=== PATIENT | female | born 1950 | race Caucasian/White ===

== ENCOUNTER 2016-07-15 09:55 | Inpatient (IN) ==
[2016-07-15] MEDS ORDERED: Ipratropium/Albuterol Neb 3 ML IH ONE (09:58)
[2016-07-15] MEDS ORDERED: methylPREDNISolone 125 MG/2 ML VIAL IVP ONE (09:58)
--- NOTE | 2016-07-15 10:08 | Emergency Department Note ---
Disposition Clinical Impression: COPD (chronic obstructive pulmonary disease) Disposition: Admitted As Inpatient Condition: Critical Referrals: Reanna Pagan MD [Primary Care Provider] - Forms: ED Satisfaction Letter SOB HPI - General Chief Complaint: ED Shortness of Breath/Dyspnea Stated Complaint: WHITNEY Source: patient, EMS Mode of arrival: EMS Nursing Notes Reviewed: Yes Vital Signs Reviewed: Yes - History of Present Illness 65-year-old female with history of COPD presents with what she believes is a COPD exacerbation. She states that she as 3-4 days of worsening shortness of breath, cough, and wheezing that is exactly the same as prior COPD exacerabations. Her nebulizer treatments help, but do not remit her symptoms. Her home oxygen of 4 L also helps, but does not remember her symptoms. She denies any change in sputum or fever. No headache, stiff neck confusion, chest pain GI or symptoms, rashes or edema. Pt Subjective Complaint: shortness of breath - Related Data Home Medications Medication Instructions Recorded Confirmed Guaifenesin [Mucinex] 600 mg PO BID 02/04/16 03/10/16 Roflumilast [Daliresp] 500 mcg PO DAILY 02/04/16 03/10/16 TraZODone 25 mg PO HS 02/04/16 03/10/16 Alendronate Sodium [Fosamax] 70 mg PO TH 02/05/16 03/10/16 Calcium/Magnesium/Vit D3 [Calcium 1 each PO BID 02/05/16 03/10/16 500 mg Tablet] Oxygen 4 l NS AD 02/05/16 03/10/16 Previous Rx's Medication Instructions Recorded Acetaminophen [Tylenol] 650 mg PO Q6HR PRN #0 tablet 03/14/16 Albuterol Neb [Proventil Neb] 2.5 mg IH Q2H PRN #0 inhsol 03/14/16 Atorvastatin [Lipitor] 20 mg PO DAILY tablet 03/14/16 Budesonide/Formoterol 80/4.5 2 puff IH BIDR inhaler 03/14/16 [Symbicort 80/4.5] Buspirone HCl [Buspar] 15 mg PO BID tablet 03/14/16 Cyanocobalamin (B-12) [Vitamin B12] 1,000 mcg PO DAILY tablet 03/14/16 Doxycycline 100 mg PO BID 7 Days 03/14/16 FLUoxetine HCl [Prozac] 20 mg PO DAILY udc 03/14/16 Famotidine [Pepcid] 20 mg PO BID tablet 03/14/16 Ferrous Sulfate 325 mg PO DAILY tablet 03/14/16 Heparin 5,000 unit SQ Q12HR vial 03/14/16 Ipratropium/Albuterol Neb [Duoneb] 3 ml IH [id number] inhsol 03/14/16 MethylPREDNISolone [Medrol] 2 mg PO BIDWM #1 pack 03/14/16 Montelukast [Singulair] 10 mg PO HS tablet 03/14/16 Saline Nasal [place] [[place] Nasal 2 spray NS Q2H PRN #0 bottle 03/14/16 [place]] Theophylline Anhydrous [Phong-24] 300 mg PO DAILY cap.er.24h 03/14/16 Allergies Allergy/AdvReac Type Severity Reaction Status Date / Time No Known Allergies Allergy Verified 02/04/16 19:19 All systems ED: reviewed and negative except as stated. Past Medical History - Past Medical History Attestation: Yes The following information was validated with the patient. Source: patient Medical history: Reports: COPD, other Surgical history: Reports: appendectomy, other (lung surgeries X2, heart cath) Psychiatric history: Reports: no psych history - Social History Smoking Status: Former smoker Smokeless Tobacco Status: No Alcohol use: Reports: none Drug use: Reports: none Physical Exam - General Limitations: no limitations General appearance: alert, in no apparent distress - Head Head exam: atraumatic, normocephalic - Eye Eye exam: Present: normal appearance, PERRL, EOMI - ENT ENT exam: normal exam, normal oropharynx, mucous membranes moist - Neck Neck exam: Present: normal inspection, full ROM, trachea midline - Chest Chest inspection: Present: normal inspection, symmetric chest wall rise - Respiratory Respiratory exam: Present: wheezes, other (poor air movement.) - Cardiovascular Cardiovascular exam: Present: regular rate, normal rhythm, normal heart sounds - Abdominal Exam Abdominal exam: Present: soft, Non-Tender. Absent: tenderness, distention, guarding, rebound, rigidity - Extremities Exam Extremities exam: Present: normal inspection, full ROM. Absent: tenderness, pedal edema - Back Exam Back exam: Present: normal inspection, full ROM. Absent: tenderness - Neurological Exam Neurological exam: Present: alert, oriented X3, CN II-XII intact - Psychiatric Psychiatric exam: Present: normal affect, normal mood - Skin Skin exam: Present: warm, dry, intact, normal color Course - Reevaluation(s) Reevaluation #1: Patient is still moving air very poorly. She is in the middle of her nebulizer treatment. Family at the bedside notes that the patient is DNR/DNI. Time: 10:59 Reevaluation #2: CO2 comes back critical high of 121. This is acute on chronic with the patient' s bicarbonate is greater than 50. Patient is agreeable to BiPAP after significant coaxing by her family. She is adamant about not being intubated or having CPR performed however though. She understands without intubation she may during this hospital stay. She states that she has been intubated before and does not want to be on a ventilator again. Patient will not take BiPAP without Ativan however. I understand that this may affect her respiratory drive, but without Ativan and BiPAP the patient will likely . Time: 12:10 Reevaluation #3: Accepted by Lana. He is aware of patient's DNR/DNI status. He is aware the patient is quite ill at this time and may decompensate. Time: 12:23 Vital Signs O2 Sat by Pulse Oximetry 100 07/15/16 09:58 Temperature 98.4 F 07/15/16 10:03 Pulse Rate 102 07/15/16 10:03 Respiratory Rate 22 07/15/16 10:32 Blood Pressure 157/68 07/15/16 10:03 O2 Sat by Pulse Oximetry 98 07/15/16 10:32 Oxygen Delivery Oxygen Delivery Nasal Cannula Shortness of Breath/Dyspnea - Lab Data Lab results reviewed: Yes I reviewed the patient's lab results. Result diagrams: 07/15/16 11:14 07/15/16 11:14 Lab Results 07/15/16 07/15/16 07/15/16 Range/Units 11:14 11:14 11:14 WBC 8.1 (4.3-11.1) K/mcL RBC 3.56 L (3.82-4.97) M/mcL Hgb 10.2 L (11.5-15.4) g/dL Hct 36.0 (35.3-44.9) % MCV 101.1 H (83.0-100.0) fL MCH 28.7 (28.0-33.3) pg MCHC 28.3 L (31.6-35.5) g/dL RDW 11.9 (11.5-14.5) % Plt Count 233 (140-400) K/mcL MPV 9.1 L (9.4-12.4) fL Immature Gran % 0.2 (0-4) % Seg Neutrophils % 72.7 % Lymphocytes % 15.1 % Monocytes % 8.2 % Eosinophils % 3.3 % Basophils % 0.5 % Neutrophils # 5.9 (1.6-8.9) K/mcL Lymphocytes # 1.2 (0.6-4.6) K/mcL Monocytes # 0.7 (0.0-1.3) K/mcL Eosinophils # 0.3 (0.0-0.6) K/mcL Basophils # 0.0 (0.0-0.2) K/mcL VBG pH (7.32-7.42) pH Units VBG pCO2 (41-51) mmHg VBG pO2 (25-40) mmHg VBG HCO3 (21-27) mEq/L Sodium 141 (136-145) mEq/L Potassium 4.3 (3.5-4.5) mEq/L Chloride 85 L (98-109) mEq/L Carbon Dioxide 49 H* (19-29) mEq/L BUN 14 (7-20) mg/dL Creatinine 0.65 (0.57-1.11) mg/dL Est GFR ( Amer) > 60 (> 60) Est GFR (Non-Af Amer) > 60 (> 60) BUN/Creatinine Ratio 22 (6-26) Glucose 161 H (70-99) mg/dL Calculated Osmolality 296 (280-300) Calcium 10.3 (8.6-10.8) mg/dL Troponin I 0.02 (0-0.03) ng/mL B-Natriuretic Peptide (0-100) pg/mL 07/15/16 07/15/16 Range/Units 11:14 11:14 WBC (4.3-11.1) K/mcL RBC (3.82-4.97) M/mcL Hgb (11.5-15.4) g/dL Hct (35.3-44.9) % MCV (83.0-100.0) fL MCH (28.0-33.3) pg MCHC (31.6-35.5) g/dL RDW (11.5-14.5) % Plt Count (140-400) K/mcL MPV (9.4-12.4) fL Immature Gran % (0-4) % Seg Neutrophils % % Lymphocytes % % Monocytes % % Eosinophils % % Basophils % % Neutrophils # (1.6-8.9) K/mcL Lymphocytes # (0.6-4.6) K/mcL Monocytes # (0.0-1.3) K/mcL Eosinophils # (0.0-0.6) K/mcL Basophils # (0.0-0.2) K/mcL VBG pH 7.28 L (7.32-7.42) pH Units VBG pCO2 121 H (41-51) mmHg VBG pO2 47 H (25-40) mmHg VBG HCO3 56.9 H (21-27) mEq/L Sodium (136-145) mEq/L Potassium (3.5-4.5) mEq/L Chloride (98-109) mEq/L Carbon Dioxide (19-29) mEq/L BUN (7-20) mg/dL Creatinine (0.57-1.11) mg/dL Est GFR ( Amer) (> 60) Est GFR (Non-Af Amer) (> 60) BUN/Creatinine Ratio (6-26) Glucose (70-99) mg/dL Calculated Osmolality (280-300) Calcium (8.6-10.8) mg/dL Troponin I (0-0.03) ng/mL B-Natriuretic Peptide 79 (0-100) pg/mL - Radiology Data Radiology results reviewed: Yes I reviewed the patient's radiology results. - EKG Data EKG attestation: Yes I reviewed and interpreted this EKG. EKG results narrative: Sinus tachycardia at 104 with normal axis and intervals. No ST elevation or depression. There is nonspecific septal repolarization abnormality. No change from 03/10/2016.
[2016-07-15 11:25] LABS: Basophils % 0.5 %; Eosinophils # 0.3 K/mcL (0.0-0.6); Eosinophils % 3.3 %; Hemoglobin 10.2 g/dL (11.5-15.4); Immature Granulocytes % 0.2 % (0-4); Lymphocytes # 1.2 K/mcL (0.6-4.6); Lymphocytes % 15.1 %; Mean Corpuscular HGB Conc 28.3 g/dL (31.6-35.5); Mean Corpuscular Hemoglobin 28.7 pg (28.0-33.3); Mean Corpuscular Volume 101.1 fL (83.0-100.0); Mean Platelet Volume 9.1 fL (9.4-12.4); Monocytes # 0.7 K/mcL (0.0-1.3); Monocytes % 8.2 %; Neutrophils # 5.9 K/mcL (1.6-8.9); Platelet Count 233 K/mcL (140-400); Red Blood Count 3.56 M/mcL (3.82-4.97); Red Cell Distribution Width 11.9 % (11.5-14.5); Segmented Neutrophils % 72.7 %
[2016-07-15 11:27] LABS: VBG HCO3 56.9 mEq/L (21-27); VBG PH 7.28 pH Units (7.32-7.42)
[2016-07-15 11:37] LABS: BUN/Creatinine Ratio 22 (6-26); Blood Urea Nitrogen 14 mg/dL (7-20); Calcium 10.3 mg/dL (8.6-10.8); Chloride 85 mEq/L (98-109); Glucose 161 mg/dL (70-99); Osmolality,Calculated 296 (280-300); Potassium 4.3 mEq/L (3.5-4.5); Sodium 141 mEq/L (136-145); eGFR For African Americans > 60 (> 60); eGFR For Non-African Americans > 60 (> 60)
[2016-07-15 11:42] LABS: Carbon Dioxide 49 mEq/L (19-29)
[2016-07-15] MEDS ORDERED: *HR* LORazepam 2 MG/ML VIAL IVP ONE (12:10)
--- NOTE | 2016-07-15 12:13 | Emergency Department Note ---
START Narrative - START START: I examined this patient and my medical decision-making was reviewed with the MAJOR ASSEMBLER/PA/Advanced Practice Nurse/Resident Physician. I agree with the documented findings, disposition and treatment plan as described except to the extent set forth below. ED attending note: Patient seen with emergency medicine resident Dr. Rinaldi. Please see a copy of his note for details of the H&P, evaluation, management and disposition of this patient. We independently had [id number] contact with the patient Briefly: Patient is 65-year-old endstage COPD patient comes in with shortness of breath. Respiratory wheezing. Has had multiple intubations and ICU admissions in the past. Declines intubation and does not want BiPAP at this time. Understanding that she is very ill and may during this hospitalization patient is accepting of that and family at bedside is supportive. Awaiting hospitalist call back. Patient is hypercarbic and hypoxic. Patient is not critical at this point. To be admitted.
[2016-07-15] MEDS ORDERED: Acetaminophen 325 MG TABLET PO PRN (14:26)
[2016-07-15] MEDS ORDERED: *HR* Morphine 2 MG/ML SYRINGE IVP PRN (14:26)
[2016-07-15] MEDS ORDERED: Naloxone 0.4 MG/ML INJ IVP PRN (14:26)
[2016-07-15] MEDS ORDERED: Nitroglycerin 0.4 MG TAB.SUBL SL PRN (14:31)
--- NOTE | 2016-07-15 14:38 | Internal Med History&Physical ---
Date of Encounter: 07/15/16 Time of Encounter: 14:36 Assessment and Plan (1) Acute exacerbation of chronic obstructive pulmonary disease (COPD) Current visit: No Status: Acute Acute on chronic hypoxic and hypercapnic respiratory failure secondary to acute COPD exacerbation likely secondary to acute bronchitis viral versus bacterial Continue Solu-Medrol, Rocephin, DuoNeb's BiPAP as needed Palliative care consult Mild hydration She is a DNR CC arrest DNI (2) Acute on chronic respiratory failure with hypoxia and hypercapnia Current visit: No Status: Acute (3) Anxiety about health Current visit: No Status: Acute Ativan IV as needed (4) DNR (do not resuscitate) discussion Current visit: No Status: Acute (5) Depression Current visit: No Status: Acute Continue SSRIs Qualifiers: Depression Type: major depressive disorder Major depression recurrence: recurrent Major depression episode severity: unspecified Qualified Code(s): F33.9 - Major depressive disorder, recurrent, unspecified (6) Chronic anemia Current visit: No Status: Chronic Protonix IV for GI prophylaxis and Lovenox for DVT prophylaxis. The patient will be admitted as inpatient, she is expected to stay more than 2 midnights. DNR CC arrest DNI. High risk due to respiratory failure Time spent on this admission 40 minutes Internal Medicine - H&P: HPI Chief complaint: Shortness of breath Admitted From: Emergency Dept History of present illness: Ms. Gaines is a 65 year old female with a past medical history of end-stage COPD using 4 L of oxygen continuously at home who has been intubated in the past. The patient according to the family was complaining of shortness of breath for the past 4 days with worse dry cough and wheezing. She used her nebulizers without any improvement. Upon admission to the emergency room she was in severe respiratory distress, she has refused the BiPAP in prior admissions but she accepted to have it this time only if given along with Ativan. The patient is completely obtunded right now if venous pH was 7.28 with a PCO2 of 121 and a PO2 of 47. Family denies any sick contacts. Chest x-ray shows cardiomegaly with emphysematous changes with pleural thickening and no active disease. Her heart rate is 102. No fevers. Patient is not able to provide any history at the moment. Past Med Surg Social Fam HX - Past Medical History Medical history: CHF (Diastolic CHF last echocardiogram showed 60% ejection fraction with mild diastolic dysfunction), COPD (End-stage COPD with chronic respiratory failure using 4 L of oxygen at home, prior intubations), GERD, hyperlipidemia, hypertension, other (Chronic anemia/iron deficiency anemia, severe protein calorie malnutrition) Psychiatric history: anxiety - Past Surgical History Surgical History: appendectomy, other (lung surgeries X2, heart cath) - Social History Smoking Status: Former smoker Smokeless Tobacco Status: No Alcohol use: none Drug use: none - Family History Mother Living Status: Hx Family Cancer: Yes Father Living Status: - Additional Family History Additional family history: Hypertension Internal Medicine - H&P: Meds Guaifenesin [Mucinex] 600 mg PO BID 02/04/16 [History] Roflumilast [Daliresp] 500 mcg PO DAILY 02/04/16 [History] TraZODone 25 mg PO HS 02/04/16 [History] Alendronate Sodium [Fosamax] 70 mg PO TH 02/05/16 [History] Calcium/Magnesium/Vit D3 [Calcium 500 mg Tablet] 1 each PO BID 02/05/16 [History ] Oxygen 4 l NS AD 02/05/16 [History] Acetaminophen [Tylenol] 650 mg PO Q6HR PRN #0 tablet 03/14/16 [Rx] Albuterol Neb [Proventil Neb] 2.5 mg IH Q2H PRN #0 inhsol 03/14/16 [Rx] Atorvastatin [Lipitor] 20 mg PO DAILY tablet 03/14/16 [Rx] Budesonide/Formoterol 80/4.5 [Symbicort 80/4.5] 2 puff IH BIDR inhaler [Rx] Buspirone HCl [Buspar] 15 mg PO BID tablet 03/14/16 [Rx] Cyanocobalamin (B-12) [Vitamin B12] 1,000 mcg PO DAILY tablet 03/14/16 [Rx] Doxycycline 100 mg PO BID 7 Days 03/14/16 [Rx] FLUoxetine HCl [Prozac] 20 mg PO DAILY udc 03/14/16 [Rx] Famotidine [Pepcid] 20 mg PO BID tablet 03/14/16 [Rx] Ferrous Sulfate 325 mg PO DAILY tablet 03/14/16 [Rx] Heparin 5,000 unit SQ Q12HR vial 03/14/16 [Rx] Ipratropium/Albuterol Neb [Duoneb] 3 ml IH [id number] inhsol 03/14/16 [Rx] MethylPREDNISolone [Medrol] 2 mg PO BIDWM #1 pack 03/14/16 [Rx] Montelukast [Singulair] 10 mg PO HS tablet 03/14/16 [Rx] Saline Nasal [place] [[place] Nasal [place]] 2 spray NS Q2H PRN #0 bottle 03/14/16 [Rx ] Theophylline Anhydrous [Phong-24] 300 mg PO DAILY cap.er.24h 03/14/16 [Rx] Allergies No Known Allergies Allergy (Verified 02/04/16 19:19) All Systems PM: A 10-system review of systems was performed and is negative for pertinent findings except as documented above in the HPI. Review of systems: Unable to completely review of systems - Constitutional Vitals: Temp Pulse Resp BP Pulse Ox 98.4 F 102 22 157/68 98 07/15/16 10:03 07/15/16 10:03 07/15/16 12:49 07/15/16 10:03 07/15/16 12:49 General appearance: Present: A&O X 0 (Obtunded, BiPAP mask in place), underweight - Head Head exam: Present: atraumatic, normocephalic - Eye Eye exam: Present: PERRL, conjuntiva pink, sclera anicteric Pupils: Absent: PERRL - Neck Neck exam general surgery: Present: supple, trachea midline. Absent: lymphadenopathy - Respiratory Respiratory exam: Present: decreased breath sounds (Very diminished breath sounds almost not perceived), CTAB. Absent: accessory muscle use, rales, rhonchi, wheezes - Cardiovascular Cardiovascular exam: Present: RRR, +S1, +S2. Absent: diastolic murmur, gallop, rubs, systolic murmur - GI/Abdominal GI/Abdominal exam: Present: normal bowel sounds, soft, no peritoneal signs. Absent: distended, tenderness - Extremities Exam Extremities exam: Present: warm, radial pulses palpable and symetrical. Absent : calf tenderness, cyanotic, pedal edema - Neurological Exam Neurological exam: Present: CN II-XII intact, no focal deficits. Absent: oriented X3, pronater drift, facial droop, speech deficit - Skin Skin exam: Present: dry, intact Internal Med - H&P Results - Labs CBC & Chem 7: 07/15/16 11:14 07/15/16 11:14
[2016-07-15] MEDS: Ipratropium/Albuterol Neb 3 ML IH SCH ×2 (15:21→22:44)
[2016-07-15] MEDS: Pantoprazole 40 MG VIAL IVP SCH (15:56)
[2016-07-15] MEDS: 0.9 % Sodium Chloride 1,000 ML IVC SCH (15:56)
[2016-07-15] MEDS: methylPREDNISolone 125 MG/2 ML VIAL IV SCH (15:57)
[2016-07-15 16:53] LABS: Adenovirus Not Detected (Not Detect); Bordetella Pertussis Not Detected (Not Detect); Chlamydophila pneumoniae Not Detected (Not Detect); Coronavirus 229E Not Detected (Not Detect); Coronavirus HKU1 Not Detected (Not Detect); Coronavirus NL63 Not Detected (Not Detect); Coronavirus OC43 Not Detected (Not Detect); Human Metapneumovirus Not Detected (Not Detect); Human Rhinovirus/Enterovirus Not Detected (Not Detect); Influenza A Subtype 2009 H1 Not Detected (Not Detect); Influenza A Untypeable Not Detected (Not Detect); Influenza B Not Detected (Not Detect); Mycoplasma pneumoniae Not Detected (Not Detect); Parainfluenza Virus 1 Not Detected (Not Detect); Parainfluenza Virus 2 Not Detected (Not Detect); Parainfluenza Virus 3 Not Detected (Not Detect); Parainfluenza Virus 4 Not Detected (Not Detect); Respiratory Syncytial Virus Not Detected (Not Detect)
[2016-07-16] MEDS: methylPREDNISolone 125 MG/2 ML VIAL IV SCH ×2 (01:32→09:28)
[2016-07-16] MEDS ORDERED: Water for inj. (sterile) 10 ML IV ONE (02:39)
[2016-07-16] MEDS: *HR* LORazepam 2 MG/ML VIAL IVP PRN ×3 (02:41→23:54)
[2016-07-16 04:24] LABS: Hematocrit 34.1 % (35.3-44.9); Immature Granulocytes % 0.6 % (0-4); Lymphocytes # 0.4 K/mcL (0.6-4.6); Lymphocytes % 8.2 %; Mean Corpuscular HGB Conc 29.3 g/dL (31.6-35.5); Mean Corpuscular Hemoglobin 28.7 pg (28.0-33.3); Mean Platelet Volume 9.6 fL (9.4-12.4); Monocytes # 0.3 K/mcL (0.0-1.3); Monocytes % 5.9 %; Neutrophils # 4.4 K/mcL (1.6-8.9); Platelet Count 241 K/mcL (140-400); Red Blood Count 3.48 M/mcL (3.82-4.97); Red Cell Distribution Width 11.9 % (11.5-14.5); Segmented Neutrophils % 85.3 %
[2016-07-16 04:55] LABS: BUN/Creatinine Ratio 20 (6-26); Blood Urea Nitrogen 12 mg/dL (7-20); Calcium 9.3 mg/dL (8.6-10.8); Chloride 87 mEq/L (98-109); Glucose 116 mg/dL (70-99); Osmolality,Calculated 295 (280-300); Potassium 4.9 mEq/L (3.5-4.5); Sodium 142 mEq/L (136-145); eGFR For African Americans > 60 (> 60); eGFR For Non-African Americans > 60 (> 60)
[2016-07-16 05:00] LABS: Carbon Dioxide 47 mEq/L (19-29)
[2016-07-16] MEDS: Ipratropium/Albuterol Neb 3 ML IH SCH ×4 (05:03→21:47)
[2016-07-16] MEDS: *HR* Enoxaparin 40 MG/0.4 ML SYRINGE SQ SCH (06:34)
[2016-07-16] MEDS: Pantoprazole 40 MG VIAL IVP SCH (09:28)
[2016-07-16] MEDS: 0.9 % Sodium Chloride 1,000 ML IVC SCH (09:28)
[2016-07-16] MEDS: (Roflumilast [Daliresp] 500 MCG) PO SCH (09:29)
--- NOTE | 2016-07-16 13:47 | Internal Med Progress Note ---
Date of Encounter: 07/16/16 Time of Encounter: 11:15 - Subjective Interval history: Ms. Gaines is a 65 year old female with a past medical history of end-stage COPD using 4 L of oxygen continuously at home admitted with altered mental status. and hypoxia and hypercarbia. She was placed on BiPAP ovenight. She is now more alert. I discussed with her family. She will need BiPAP at night and when sleeping during the day. Overnight BiPAP qualification required. O/E: In mild respiratory distress, pursing of lips HEENT: Not pale, anicteric, afebrile, acyanotic, Chest: Diminished air entry bilaterally, prolonged expiratory phase. Heart: RRR, HS1/2, no murmur Abdomen: obese, soft, non-tender, no masses. HELMET HAT BRIM CUTTER: AAO x 2, no gross focal neurological deficits Skin: No active skin lesion Extremities: No pedal edema, normal pedal pulses, no calf tenderness. IMP Altered mental status Acute on chronic respiratory failure with hypoxia and severe hypercarbia COPD exacerbation Advanced COPD, oxygen-dependent PLAN Continue nocturnal and rest BiPAP Overnight BiPAP qualification Reduce dose of Solumedrol to 40mg Q1H Await palliative care evaluation Continue other care. I discussed at length with the patient's sons. She apparently has CPAP at home. I try trade this for BiPAP before discharge. The entire amily smokes cigarette, the patient lives with her sons. - Constitutional Vitals: Temp Pulse Resp BP Pulse Ox 97.8 F 92 17 132/94 98 07/16/16 11:49 07/16/16 11:49 07/16/16 11:49 07/16/16 11:49 07/16/16 11:49 General appearance: Present: A&O X 0 (Obtunded, BiPAP mask in place), underweight Internal Medicine: Result - Labs CBC & Chem 7: 07/16/16 03:03 07/16/16 03:03 Labs: Short CBC 07/16/16 Range/Units 03:03 WBC 5.1 (4.3-11.1) K/mcL Hgb 10.0 L (11.5-15.4) g/dL Hct 34.1 L (35.3-44.9) % Plt Count 241 (140-400) K/mcL Neutrophils # 4.4 (1.6-8.9) K/mcL BMP 07/16/16 03:03 Sodium 142 Potassium 4.9 H Chloride 87 L Carbon Dioxide 47 H* BUN 12 Creatinine 0.59 Glucose 116 H Calcium 9.3 Consult Discharge Plan - Plan Referrals: Reanna Pagan MD [Primary Care Provider] -
[2016-07-16] MEDS: FLUoxetine HCl Oral Soln 20 MG/5 ML UDC PO SCH (14:01)
--- NOTE | 2016-07-16 14:02 | Palliative - Consult Note ---
Date of Encounter: 07/16/16 Time of Encounter: 13:30 - Assessment and Plan (1) Dyspnea Current Visit: No Status: Chronic Assessment and plan: Patient with end-stage COPD. Continue duonebs, steroids, low dose IV morphine. Bipap PRN. Qualifiers: Dyspnea type: dyspnea on exertion Qualified Code(s): R06.09 - Other forms of dyspnea (2) Anxiety about health Current Visit: No Status: Acute Assessment and plan: Patient with IV ativan if needed. Currently denies anxiety with family at bedside. (3) Goals of care, counseling/discussion Current Visit: Yes Status: Acute Assessment and plan: Patient is alert and oriented. Sons Ventura and Lopez at bedside. These 2 sons live with the patient. Lopez provides the majority of care his contact number is [phone]. I discussed the patients end-stage COPD and reason for admission. The patient and family understand that her lung disease is severe. They currently get Passport care with nurse visiting the patient 4 x week. I discussed that the severity of her COPD would qualify her for hospice care. They verbalized understanding that and that they weren't ready to enroll in in yet. I discussed that her admissions would continue and they verbalized understanding that she still wanted to be treated with medications as needed for episodic events. I ask they speak with other family members as well. The patient reports that she failed a bipap certification back in January and the family desires to see if she can be tested for it again. I will f/u with Dr. Johnson. The patient and family are interested in drafting advanced directives. The patient would like to list daughter Belinda # or (c) as the primary agent. I will attempt to make contact with her to set-up a meeting to draft. Palliative-CN HPI - Data of Consult Patient: new to practice Consult date: 07/16/16 Requesting Physician: Bobby Arzate Primary Care Provider: Reanna Pagan - Consult Narrative Palliative Care/Comfort Measures: Palliative care Reason for consult: Goals of Care discussion History of present illness: Ms. Gaines is a 65 year old female admitted with exacerbation of COPD with severe respiratory distress. She was given ativan to calm her nerves and facilitate her wearing the bipap and this resulted her becoming obtunded last evening. The patient wears 4 L NC at home continuously. Upon this consult her 2 sons Ventura and Lopez are present in the room. She is alert and oriented and able to hold conversation. Her sons report that she was in usual state of health but began developing a cough over the past week. The patient resides in her home with these 2 sons. They are very involved in her care and appear to understand the severity of her COPD. This palliative care consult if for goals of care planning. CC: Sana Chun Past Med Surg Social Fam HX - Past Medical History Source: patient, old records reviewed, obtained from family Medical history: CHF, COPD, GERD, hyperlipidemia, hypertension, other Psychiatric history: anxiety - Past Surgical History Surgical History: appendectomy, other - Social History Smoking Status: Former smoker Smokeless Tobacco Status: No Alcohol use: none Drug use: none Occupational status: unemployed Current living situation: Home, With Family (sons Ventura and Lopez) Activity Level: Uses cane/walker Recent Out of Country Travel Within the Last 8 Weeks: No Exposure or Possible Exposure to Illness During Travel: No - Family History Mother Living Status: Hx Family Cancer: Yes (brain) Father Living Status: Medications and Allergies Guaifenesin [Mucinex] 600 mg PO BID 02/04/16 [History] Roflumilast [Daliresp] 500 mcg PO DAILY 02/04/16 [History] TraZODone 25 mg PO HS 02/04/16 [History] Alendronate Sodium [Fosamax] 70 mg PO TH 02/05/16 [History] Calcium/Magnesium/Vit D3 [Calcium 500 mg Tablet] 1 tab PO BID 02/05/16 [History] Oxygen 4 l NS AD 02/05/16 [History] Albuterol Neb [Proventil Neb] 2.5 mg IH Q2H PRN #0 inhsol 03/14/16 [Rx] Atorvastatin [Lipitor] 20 mg PO DAILY tablet 03/14/16 [Rx] Buspirone HCl [Buspar] 15 mg PO BID tablet 03/14/16 [Rx] FLUoxetine HCl [Prozac] 20 mg PO DAILY udc 03/14/16 [Rx] Ferrous Sulfate 325 mg PO DAILY tablet 03/14/16 [Rx] Montelukast [Singulair] 10 mg PO HS tablet 03/14/16 [Rx] Theophylline Anhydrous [Phong-24] 300 mg PO DAILY cap.er.24h 03/14/16 [Rx] Albuterol Sulfate [Proair Hfa] 2 puff IH Q4-6H PRN 07/15/16 [History] Aspirin [Lo-Dose Aspirin EC] 81 mg PO DAILY 07/15/16 [History] Cyclobenzaprine [Flexeril] 10 mg PO HS 07/15/16 [History] Fluticasone/Salmeterol [Advair 250-50 Diskus] 1 puff IH BID 07/15/16 [History] Loratadine [Allergy Relief] 10 mg PO DAILY 07/15/16 [History] Omeprazole [PriLOSEC] 20 mg PO DAILY 07/15/16 [History] Allergies No Known Allergies Allergy (Verified 02/04/16 19:19) All systems: reviewed and no additional remarkable complaints except as stated ( cough, SOB, WHITNEY. weakness) - Constitutional Constitutional ROS PAL: fatigue - EENT Eyes: requires corrective lenses - Respiratory Respiratory: dyspnea on exertion - Genitourinary Palliative ROS female: urinary frequency - Musculoskeletal Musculoskeletal ROS IM: muscle weakness - Psychiatric Psychiatric general PM: anxiety Palliative Care-Exam - Constitutional Vitals: Temp Pulse Resp BP Pulse Ox 97.8 F 92 17 132/94 98 07/16/16 11:49 07/16/16 11:49 07/16/16 11:49 07/16/16 11:49 07/16/16 11:49 General appearance: Present: cooperative, no acute distress - Head Head Exam: Present: atraumatic, normal inspection - Eye Eye exam: Present: PERRL Pupils: Present: PERRL - ENT ENT exam: Present: mucous membranes moist - Neck Neck exam: Present: full ROM - Respiratory Respiratory exam: Present: decreased breath sounds - Expanded Respiratory Exam Location: decreased breath sounds: Left, Right, Upper, Lower - Expanded Cardiovascular Exam Peripheral pulses: 1+: Femoral (L) PM, Femoral (R) PM, Posterior Tibialis (L), Posterior Tibialis (R), 2+: Carotid (L) PM, Carotid (R) PM, Radial (L), Radial ( R), Dorsalis Pedis (L) PM, Dorsalis Pedis (R) PM - GI/Abdominal Exam GI/Abdominal exam: Present: normal bowel sounds, soft - Rectal Rectal exam: Present: deferred - Additional comments: per attends - Extremities Exam Extremities exam: Present: full ROM - Expanded Upper Extremities Exam Upper Arm exam: Present: full ROM Forearm wrist exam: Present: full ROM - Expanded Lower Extremities Exam Upper Leg exam: Present: full ROM Lower Leg exam: Present: full ROM - Neurological Exam Neurological exam: Present: alert, CN II-XII intact, oriented X3 - Psychiatric Psychiatric exam: Present: normal affect, normal mood - Skin Skin exam: Present: pallor, warm Internal Medicine - CN: Reslt - Labs CBC & Chem 7: 07/16/16 03:03 07/16/16 03:03 Labs: Short CBC 07/16/16 Range/Units 03:03 WBC 5.1 (4.3-11.1) K/mcL Hgb 10.0 L (11.5-15.4) g/dL Hct 34.1 L (35.3-44.9) % Plt Count 241 (140-400) K/mcL Neutrophils # 4.4 (1.6-8.9) K/mcL BMP 07/16/16 03:03 Sodium 142 Potassium 4.9 H Chloride 87 L Carbon Dioxide 47 H* BUN 12 Creatinine 0.59 Glucose 116 H Calcium 9.3 Consult Discharge Plan - Plan Referrals: Reanna Pagan MD [Primary Care Provider] - Palliative Quality Palliative Quality: Screen for Code Status: Yes, Screen for Goals of Care: Yes, Screen for Pain: Yes, If Pain Regimen Started, Initiate Bowel Regimen: Yes, Screen for Nausea/Vomitting: Yes
[2016-07-16] MEDS: MethylPREDNISolone 40 MG/ML VIAL IVP SCH ×2 (15:25→23:55)
[2016-07-16 16:40] LABS: ABG Base Excess 23.5 mEq/L (-2.0 to 3.0); ABG HCO3 54.5 mEQ/L (21-27); ABG Oxygen Saturation 99 % (95-98); ABG PH 7.28 pH Units (7.32-7.45); ABG PO2 163 mmHg (85-104); ABG TCO2 58.1 mEq/L (20-26)
[2016-07-16 16:43] LABS: ABG PCO2 116 mmHg (35-45); Blood Gas FiO2 40 %
--- NOTE | 2016-07-16 19:54 | Electrocardiograph Report ---
[facility] Test Date: 2016-07-15 Pat Name: Dior Gaines Department: 105 Room: 3B53 Gender: F Healthcare Translator: EMELIA : 1950 Requested By: Yusef Rinaldi Order Number: [id number] Reading MD: Jared Bae DO Measurements Intervals [place] Rate: 104 P: 79 ME: 129 QRS: 19 QRSD: 90 T: 60 QT: 322 QTc: 382 Interpretive Statements SINUS TACHYCARDIA POSSIBLE LEFT VENTRICULAR HYPERTROPHY Electronically Signed On 07-16-16 19:54:03 EST by Jared Bae DO
[2016-07-17] MEDS ORDERED: Temazepam 15 MG CAPSULE PO ONE (01:31)
[2016-07-17] MEDS: 0.9 % Sodium Chloride 1,000 ML IVC SCH ×2 (03:05→23:03)
[2016-07-17] MEDS: Ipratropium/Albuterol Neb 3 ML IH SCH ×4 (03:28→21:41)
[2016-07-17 05:50] LABS: ABG HCO3 50.2 mEQ/L (21-27); ABG Oxygen Saturation 98 % (95-98); ABG PH 7.35 pH Units (7.32-7.45); ABG PO2 103 mmHg (85-104); Blood Gas FiO2 36 %; Blood Gas Liter Flow 4 L/MIN
[2016-07-17 05:52] LABS: ABG PCO2 91 mmHg (35-45)
[2016-07-17] MEDS: *HR* Enoxaparin 40 MG/0.4 ML SYRINGE SQ SCH (06:01)
[2016-07-17 08:16] LABS: Basophils % 0.1 %; Eosinophils % 0.1 %; Hematocrit 30.4 % (35.3-44.9); Hemoglobin 8.9 g/dL (11.5-15.4); Immature Granulocytes % 0.9 % (0-4); Lymphocytes # 0.7 K/mcL (0.6-4.6); Lymphocytes % 7.7 %; Mean Corpuscular HGB Conc 29.3 g/dL (31.6-35.5); Mean Corpuscular Hemoglobin 28.6 pg (28.0-33.3); Mean Corpuscular Volume 97.7 fL (83.0-100.0); Mean Platelet Volume 9.3 fL (9.4-12.4); Monocytes # 0.7 K/mcL (0.0-1.3); Monocytes % 7.6 %; Neutrophils # 7.9 K/mcL (1.6-8.9); Platelet Count 251 K/mcL (140-400); Red Blood Count 3.11 M/mcL (3.82-4.97); Segmented Neutrophils % 83.6 %
[2016-07-17 08:28] LABS: BUN/Creatinine Ratio 25 (6-26); Blood Urea Nitrogen 14 mg/dL (7-20); Calcium 9.1 mg/dL (8.6-10.8); Chloride 94 mEq/L (98-109); Glucose 101 mg/dL (70-99); Osmolality,Calculated 297 (280-300); Potassium 4.1 mEq/L (3.5-4.5); Sodium 143 mEq/L (136-145); eGFR For African Americans > 60 (> 60); eGFR For Non-African Americans > 60 (> 60)
[2016-07-17 08:33] LABS: Carbon Dioxide 42 mEq/L (19-29)
[2016-07-17] MEDS: (Roflumilast [Daliresp] 500 MCG) PO SCH (09:32)
[2016-07-17] MEDS: FLUoxetine HCl Oral Soln 20 MG/5 ML UDC PO SCH (09:35)
[2016-07-17] MEDS: MethylPREDNISolone 40 MG/ML VIAL IVP SCH ×3 (10:41→23:39)
[2016-07-17] MEDS: Pantoprazole 40 MG VIAL IVP SCH (10:42)
[2016-07-17] MEDS: *HR* LORazepam 2 MG/ML VIAL IVP PRN ×3 (10:43→23:03)
--- NOTE | 2016-07-17 11:03 | Palliative Progress Note ---
Date of Encounter: 07/17/16 Time of Encounter: 11:01 - Assessment and plan (1) Dyspnea Current Visit: Yes Status: Chronic Assessment and plan: Supportive care, position for comfort, supplemental O2, overnight pulse ox study for BiPAP qualification last night. Qualifiers: Dyspnea type: dyspnea on exertion Qualified Code(s): R06.09 - Other forms of dyspnea (2) COPD (chronic obstructive pulmonary disease) Current Visit: Yes Status: Acute Assessment and plan: IV steroids and ATB per hospitalist. Qualifiers: COPD type: COPD with acute exacerbation Qualified Code(s): J44.1 - Chronic obstructive pulmonary disease with (acute) exacerbation (3) Goals of care, counseling/discussion Current Visit: Yes Status: Acute Assessment and plan: Goals of care follow-up discussion with Ms. Gaines. She would like to see her passport hours increased upon discharge from hospital. financial services officer following. (4) Anxiety about health Current Visit: Yes Status: Acute Assessment and plan: Buspar and Prozac as home medications. Lorazepam IV every 2 hours as needed with a total of 4 doses in the past 24 hours. Continue to monitor. - Time Spent With Patient Total time spent is greater than 50% in coordination of care (as documented) at patient's floor/unit and/or counseling patient: - Subjective Interval history: Ms. Gaines is sitting up in bed with RN at bedside. She reports feeling tired this morning. A BiPAP study was done last night. - Constitutional Vitals: Abnormal lab results RBC 3.11 M/mcL (3.82-4.97) L 07/17/16 08:00 Hgb 8.9 g/dL (11.5-15.4) L 07/17/16 08:00 Hct 30.4 % (35.3-44.9) L 07/17/16 08:00 MCHC 29.3 g/dL (31.6-35.5) L 07/17/16 08:00 MPV 9.3 fL (9.4-12.4) L 07/17/16 08:00 ABG pCO2 91 mmHg (35-45) H* 07/17/16 05:41 ABG HCO3 50.2 mEQ/L (21-27) H 07/17/16 05:41 ABG Total CO2 53.0 mEq/L (20-26) H 07/17/16 05:41 ABG Base Excess 21.0 mEq/L (-2.0 to 3.0) H 07/17/16 05:41 VBG pH 7.28 pH Units (7.32-7.42) L 07/15/16 11:14 VBG pCO2 121 mmHg (41-51) H 07/15/16 11:14 VBG pO2 47 mmHg (25-40) H 07/15/16 11:14 VBG HCO3 56.9 mEq/L (21-27) H 07/15/16 11:14 Chloride 94 mEq/L (98-109) L 07/17/16 08:00 Carbon Dioxide 42 mEq/L (19-29) H* 07/17/16 08:00 Creatinine 0.56 mg/dL (0.57-1.11) L 07/17/16 08:00 Glucose 101 mg/dL (70-99) H 07/17/16 08:00 General appearance: Present: cooperative, no acute distress - ENT ENT exam: Present: mucous membranes moist - Respiratory Respiratory exam: Present: decreased breath sounds, prolonged expiratory phase. Absent: respiratory distress, wheezes - Cardiovascular Cardiovascular exam: Present: RRR - GI/Abdominal GI/Abdominal exam: Present: normal bowel sounds, soft. Absent: tenderness - Extremities Exam Extremities exam: Present: normal inspection - Neurological Exam Neurological exam: Present: alert, no focal deficits, strengths equal and symetr throughout - Skin Skin exam: Present: dry, warm Palliative Quality Palliative Quality: Screen for Code Status: Yes, Screen for Goals of Care: Yes, Screen for Pain: Yes, If Pain Regimen Started, Initiate Bowel Regimen: Yes, Screen for Nausea/Vomitting: Yes - Labs CBC & Chem 7: 07/17/16 08:00 07/17/16 08:00 Labs: Laboratory Results - last 24 hr 07/16/16 07/17/16 07/17/16 16:28 05:41 08:00 WBC 9.4 D RBC 3.11 L Hgb 8.9 L Hct 30.4 L MCV 97.7 MCH 28.6 MCHC 29.3 L RDW 12.0 Plt Count 251 MPV 9.3 L Immature Gran % 0.9 Seg Neutrophils % 83.6 Lymphocytes % 7.7 Monocytes % 7.6 Eosinophils % 0.1 Basophils % 0.1 Neutrophils # 7.9 Lymphocytes # 0.7 Monocytes # 0.7 Eosinophils # 0.0 Basophils # 0.0 ABG pH 7.28 L 7.35 ABG pCO2 116 H* 91 H* ABG pO2 163 H 103 ABG HCO3 54.5 H 50.2 H ABG Total CO2 58.1 H 53.0 H ABG O2 Saturation 99 H 98 ABG Base Excess 23.5 H 21.0 H Liter Flow 4 Blood Gas Modality NC NC Inspired O2 40 36 Sodium Potassium Chloride Carbon Dioxide BUN Creatinine Est GFR ( Amer) Est GFR (Non-Af Amer) BUN/Creatinine Ratio Glucose Calculated Osmolality Calcium 07/17/16 08:00 WBC RBC Hgb Hct MCV MCH MCHC RDW Plt Count MPV Immature Gran % Seg Neutrophils % Lymphocytes % Monocytes % Eosinophils % Basophils % Neutrophils # Lymphocytes # Monocytes # Eosinophils # Basophils # ABG pH ABG pCO2 ABG pO2 ABG HCO3 ABG Total CO2 ABG O2 Saturation ABG Base Excess Liter Flow Blood Gas Modality Inspired O2 Sodium 143 Potassium 4.1 Chloride 94 L Carbon Dioxide 42 H* BUN 14 Creatinine 0.56 L Est GFR ( Amer) > 60 Est GFR (Non-Af Amer) > 60 BUN/Creatinine Ratio 25 Glucose 101 H Calculated Osmolality 297 Calcium 9.1 - ABG Interpretation ABG results: ABG ABG pH 7.35 pH Units (7.32-7.45) 07/17/16 05:41 ABG pCO2 91 mmHg (35-45) H* 07/17/16 05:41 ABG pO2 103 mmHg (85-104) 07/17/16 05:41 ABG O2 Saturation 98 % (95-98) 07/17/16 05:41 Consult Discharge Plan - Plan Referrals: Reanna Pagan MD [Primary Care Provider] -
--- NOTE | 2016-07-17 11:29 | Internal Med Progress Note ---
Date of Encounter: 07/17/16 Time of Encounter: 11:27 - Assessment and plan (1) Altered mental state Current Visit: Yes Status: Acute Assessment and plan: Possible secondary to hypercapnia from end-stage COPD. Repeat ABG is better with improvement of respiratory acidosis. Patient currently alert and oriented 2. Mental status relatively plantar with improvement in hypercapnia. We will continue to monitor. Qualifiers: Altered mental status type: somnolence Qualified Code(s): R40.0 - Somnolence (2) Acute exacerbation of chronic obstructive airways disease Current Visit: No Status: Acute Assessment and plan: Repeat ABG shows improvement in respiratory acidosis. Currently saturating well on 4l nasal cannula. We will continue scheduled duo nebs and IV steroids. Will continue IV ceftriaxone. Chest x-ray shows no infiltrate, has cardiomegaly and advanced emphysema. Will add Advair and Singulair and roflumilast that he was taking at home. (3) Acute on chronic respiratory failure with hypercapnia Current Visit: No Status: Acute Assessment and plan: relatively improved. sats has improved along with the mental status. will follow the results of the BIPAP qualifictaion test, if qualified, will have to set up for BIPAP at home. high risk as has end stage COPD. - Time Spent With Patient 25 - 35 minutes - Subjective Interval history: First encounter with the patient. Admitted for acute respiratory failure secondary to COPD exacerbation. Seen at the bedside, denies any chest pain, appears not to be in any acute respiratory distress, saturating well on 4 L of nasal cannula. Status post BiPAP qualification test at night. - Constitutional Vitals: Temp Pulse Resp BP Pulse Ox 97.5 F L 94 15 146/71 100 07/17/16 11:00 07/17/16 11:00 07/17/16 11:00 07/17/16 11:00 07/17/16 11:00 General appearance: Present: A&O X 0 (Obtunded, BiPAP mask in place), underweight Exam: O/E: Appears in no acute respiratory distress. HEENT: Not pale, anicteric, afebrile, acyanotic, Chest: Diminished air entry bilaterally, prolonged expiratory phase. Heart: RRR, HS1/2, no murmur Abdomen: obese, soft, non-tender, no masses. CHECK WRITER SALESPERSON: AAO x 2, no gross focal neurological deficits Skin: No active skin lesion Extremities: No pedal edema, normal pedal pulses, no calf tenderness. Internal Medicine: Result - Labs CBC & Chem 7: 07/17/16 08:00 07/17/16 08:00 Labs: Short CBC 07/17/16 Range/Units 08:00 WBC 9.4 D (4.3-11.1) K/mcL Hgb 8.9 L (11.5-15.4) g/dL Hct 30.4 L (35.3-44.9) % Plt Count 251 (140-400) K/mcL Neutrophils # 7.9 (1.6-8.9) K/mcL BMP 07/17/16 08:00 Sodium 143 Potassium 4.1 Chloride 94 L Carbon Dioxide 42 H* BUN 14 Creatinine 0.56 L Glucose 101 H Calcium 9.1 - ABG Interpretation ABG results: ABG ABG pH 7.35 pH Units (7.32-7.45) 07/17/16 05:41 ABG pCO2 91 mmHg (35-45) H* 07/17/16 05:41 ABG pO2 103 mmHg (85-104) 07/17/16 05:41 ABG O2 Saturation 98 % (95-98) 07/17/16 05:41 Consult Discharge Plan - Plan Referrals: Reanna Pagan MD [Primary Care Provider] -
[2016-07-17] MEDS: Budesonide/Formoterol 80/4.5 MDI IH SCH ×2 (16:18→21:41)
[2016-07-18] MEDS: *HR* LORazepam 2 MG/ML VIAL IVP PRN ×3 (02:36→22:48)
[2016-07-18] MEDS: Ipratropium/Albuterol Neb 3 ML IH SCH ×4 (04:36→23:21)
[2016-07-18 04:54] LABS: Basophils % 0.1 %; Hematocrit 29.5 % (35.3-44.9); Hemoglobin 8.6 g/dL (11.5-15.4); Immature Granulocytes % 3.2 % (0-4); Lymphocytes # 0.4 K/mcL (0.6-4.6); Lymphocytes % 5.6 %; Mean Corpuscular HGB Conc 29.2 g/dL (31.6-35.5); Mean Corpuscular Hemoglobin 28.9 pg (28.0-33.3); Mean Platelet Volume 9.3 fL (9.4-12.4); Monocytes # 0.3 K/mcL (0.0-1.3); Monocytes % 3.7 %; Neutrophils # 6.5 K/mcL (1.6-8.9); Platelet Count 245 K/mcL (140-400); Red Blood Count 2.98 M/mcL (3.82-4.97); Red Cell Distribution Width 11.9 % (11.5-14.5); Segmented Neutrophils % 87.4 %
[2016-07-18 05:05] LABS: BUN/Creatinine Ratio 22 (6-26); Blood Urea Nitrogen 12 mg/dL (7-20); Calcium 8.7 mg/dL (8.6-10.8); Chloride 95 mEq/L (98-109); Glucose 141 mg/dL (70-99); Osmolality,Calculated 298 (280-300); Potassium 4.3 mEq/L (3.5-4.5); Sodium 143 mEq/L (136-145); eGFR For African Americans > 60 (> 60); eGFR For Non-African Americans > 60 (> 60)
[2016-07-18 05:07] LABS: Carbon Dioxide 42 mEq/L (19-29)
[2016-07-18] MEDS: *HR* Enoxaparin 40 MG/0.4 ML SYRINGE SQ SCH (05:57)
[2016-07-18] MEDS: FLUoxetine HCl Oral Soln 20 MG/5 ML UDC PO SCH (08:32)
[2016-07-18] MEDS: (Roflumilast [Daliresp] 500 MCG) PO SCH (08:32)
[2016-07-18] MEDS: MethylPREDNISolone 40 MG/ML VIAL IVP SCH ×3 (08:32→22:48)
[2016-07-18] MEDS: Pantoprazole 40 MG VIAL IVP SCH (08:32)
[2016-07-18] MEDS: Budesonide/Formoterol 80/4.5 MDI IH SCH ×2 (10:48→23:23)
--- NOTE | 2016-07-18 14:26 | Internal Med Progress Note ---
Date of Encounter: 07/18/16 Time of Encounter: 14:23 - Assessment and plan (1) Altered mental state Current Visit: Yes Status: Acute Assessment and plan: Possible secondary to hypercapnia from end-stage COPD. Repeat ABG is better with improvement of respiratory acidosis. Patient currently alert and oriented 2. Mental status relatively plantar with improvement in hypercapnia. We will continue to monitor. Qualifiers: Altered mental status type: somnolence Qualified Code(s): R40.0 - Somnolence (2) Acute exacerbation of chronic obstructive airways disease Current Visit: No Status: Acute Assessment and plan: Repeat ABG shows improvement in respiratory acidosis. Currently saturating well on 4l nasal cannula. We will continue scheduled duo nebs and IV steroids. will stop IV antibiotics. Chest x-ray shows no infiltrate, has cardiomegaly and advanced emphysema. Will add Advair and Singulair and roflumilast that he was taking at home. working with social work to set up BIPAP at home/ (3) Acute on chronic respiratory failure with hypercapnia Current Visit: No Status: Acute Assessment and plan: relatively improved. sats has improved along with the mental status. qualified for home BIPAP, set up BIPAP at home. high risk as has end stage COPD. - Time Spent With Patient 25 - 35 minutes - Subjective Interval history: Patient seen at the bedside, appears more awake and alert today. Admitted for acute respiratory failure secondary to COPD exacerbation. Seen at the bedside, denies any chest pain, appears not to be in any acute respiratory distress, saturating well on 4 L of nasal cannula. Qualified for BiPAP, we will arrange to get BiPAP at home before discharge. - Constitutional Vitals: Temp Pulse Resp BP Pulse Ox 97.7 F 90 15 136/68 99 07/18/16 07:14 07/18/16 07:14 07/18/16 10:49 07/18/16 07:14 07/18/16 10:49 General appearance: Present: A&O X 2, underweight Exam: O/E: Appears in no acute respiratory distress. HEENT: Not pale, anicteric, afebrile, acyanotic, Chest: Diminished air entry bilaterally, prolonged expiratory phase. Heart: RRR, HS1/2, no murmur Abdomen: obese, soft, non-tender, no masses. CEMENT PAVER: AAO x 2, no gross focal neurological deficits Skin: No active skin lesion Extremities: No pedal edema, normal pedal pulses, no calf tenderness. Internal Medicine: Result - Labs CBC & Chem 7: 07/18/16 04:39 07/18/16 04:39 Labs: Short CBC 07/18/16 Range/Units 04:39 WBC 7.5 (4.3-11.1) K/mcL Hgb 8.6 L (11.5-15.4) g/dL Hct 29.5 L (35.3-44.9) % Plt Count 245 (140-400) K/mcL Neutrophils # 6.5 (1.6-8.9) K/mcL BMP 07/18/16 04:39 Sodium 143 Potassium 4.3 Chloride 95 L Carbon Dioxide 42 H* BUN 12 Creatinine 0.55 L Glucose 141 H Calcium 8.7 - ABG Interpretation ABG results: ABG ABG pH 7.35 pH Units (7.32-7.45) 07/17/16 05:41 ABG pCO2 91 mmHg (35-45) H* 07/17/16 05:41 ABG pO2 103 mmHg (85-104) 07/17/16 05:41 ABG O2 Saturation 98 % (95-98) 07/17/16 05:41 Consult Discharge Plan - Plan Referrals: Reanna Pagan MD [Primary Care Provider] -
--- NOTE | 2016-07-18 14:28 | Palliative Progress Note ---
Date of Encounter: 07/18/16 Time of Encounter: 11:00 - Assessment and plan (1) Dyspnea Current Visit: Yes Status: Chronic Assessment and plan: Supportive care, position for comfort, supplemental O2, overnight pulse ox study for BiPAP qualification completed. Pending set-up. Qualifiers: Qualified Code(s): R06.09 - Other forms of dyspnea (2) COPD (chronic obstructive pulmonary disease) Current Visit: Yes Status: Acute Assessment and plan: IV steroids and ATB per hospitalist. Qualifiers: Qualified Code(s): J44.1 - Chronic obstructive pulmonary disease with (acute ) exacerbation (3) Goals of care, counseling/discussion Current Visit: Yes Status: Acute Assessment and plan: janitorial services supervisor following for discharge needs. (4) Anxiety about health Current Visit: Yes Status: Acute Assessment and plan: Buspar and Prozac as home medications. Lorazepam IV every 2 hours as needed with a total of 3 doses in the past 24 hours. Continue to monitor. - Time Spent With Patient Total time spent is greater than 50% in coordination of care (as documented) at patient's floor/unit and/or counseling patient: - Subjective Interval history: Ms. Gaines is lying in bed with pillows propping her up. She awakens easily and is able to hold conversation about current events. - Constitutional Vitals: Abnormal lab results RBC 2.98 M/mcL (3.82-4.97) L 07/18/16 04:39 Hgb 8.6 g/dL (11.5-15.4) L 07/18/16 04:39 Hct 29.5 % (35.3-44.9) L 07/18/16 04:39 MCHC 29.2 g/dL (31.6-35.5) L 07/18/16 04:39 MPV 9.3 fL (9.4-12.4) L 07/18/16 04:39 Lymphocytes # 0.4 K/mcL (0.6-4.6) L 07/18/16 04:39 ABG pCO2 91 mmHg (35-45) H* 07/17/16 05:41 ABG HCO3 50.2 mEQ/L (21-27) H 07/17/16 05:41 ABG Total CO2 53.0 mEq/L (20-26) H 07/17/16 05:41 ABG Base Excess 21.0 mEq/L (-2.0 to 3.0) H 07/17/16 05:41 VBG pH 7.28 pH Units (7.32-7.42) L 07/15/16 11:14 VBG pCO2 121 mmHg (41-51) H 07/15/16 11:14 VBG pO2 47 mmHg (25-40) H 07/15/16 11:14 VBG HCO3 56.9 mEq/L (21-27) H 07/15/16 11:14 Chloride 95 mEq/L (98-109) L 07/18/16 04:39 Carbon Dioxide 42 mEq/L (19-29) H* 07/18/16 04:39 Creatinine 0.55 mg/dL (0.57-1.11) L 07/18/16 04:39 Glucose 141 mg/dL (70-99) H 07/18/16 04:39 General appearance: Present: cooperative, no acute distress - ENT ENT exam: Present: mucous membranes moist - Respiratory Respiratory exam: Present: decreased breath sounds (minimal air exchange noted. ). Absent: accessory muscle use, respiratory distress - Cardiovascular Cardiovascular exam: Present: RRR - GI/Abdominal GI/Abdominal exam: Present: soft. Absent: tenderness - Extremities Exam Extremities exam: Present: normal inspection - Neurological Exam Neurological exam: Present: alert, oriented X3, no focal deficits - Psychiatric Psychiatric exam: Present: flat affect. Absent: agitated, anxious - Skin Skin exam: Present: dry, warm Palliative Quality Palliative Quality: Screen for Code Status: Yes, Screen for Goals of Care: Yes, Screen for Pain: Yes, If Pain Regimen Started, Initiate Bowel Regimen: Yes, Screen for Nausea/Vomitting: Yes - Labs CBC & Chem 7: 07/18/16 04:39 07/18/16 04:39 Labs: Laboratory Results - last 24 hr 07/18/16 07/18/16 04:39 04:39 WBC 7.5 RBC 2.98 L Hgb 8.6 L Hct 29.5 L MCV 99.0 MCH 28.9 MCHC 29.2 L RDW 11.9 Plt Count 245 MPV 9.3 L Immature Gran % 3.2 Seg Neutrophils % 87.4 Lymphocytes % 5.6 Monocytes % 3.7 Eosinophils % 0.0 Basophils % 0.1 Neutrophils # 6.5 Lymphocytes # 0.4 L Monocytes # 0.3 Eosinophils # 0.0 Basophils # 0.0 Sodium 143 Potassium 4.3 Chloride 95 L Carbon Dioxide 42 H* BUN 12 Creatinine 0.55 L Est GFR ( Amer) > 60 Est GFR (Non-Af Amer) > 60 BUN/Creatinine Ratio 22 Glucose 141 H Calculated Osmolality 298 Calcium 8.7 - ABG Interpretation ABG results: ABG ABG pH 7.35 pH Units (7.32-7.45) 07/17/16 05:41 ABG pCO2 91 mmHg (35-45) H* 07/17/16 05:41 ABG pO2 103 mmHg (85-104) 07/17/16 05:41 ABG O2 Saturation 98 % (95-98) 07/17/16 05:41 Consult Discharge Plan - Plan Referrals: Reanna Pagan MD [Primary Care Provider] -
[2016-07-18] MEDS: 0.9 % Sodium Chloride 1,000 ML IVC SCH (16:15)
[2016-07-18] MEDS ORDERED: Water for inj. (sterile) 10 ML IV ONE (20:02)
[2016-07-18] MEDS: Saline Nasal Spray 44 ML BOTTLE NS PRN (20:14)
[2016-07-18] MEDS: Ibuprofen 400 MG TABLET PO PRN (20:23)
[2016-07-18] MEDS: Ondansetron 4 MG/2 ML VIAL IVP PRN (22:52)
[2016-07-19] MEDS: *HR* LORazepam 2 MG/ML VIAL IVP PRN ×2 (01:10→03:58)
[2016-07-19] MEDS: Ipratropium/Albuterol Neb 3 ML IH SCH ×4 (04:10→23:41)
[2016-07-19] MEDS: *HR* Enoxaparin 40 MG/0.4 ML SYRINGE SQ SCH (06:19)
[2016-07-19] MEDS: (Roflumilast [Daliresp] 500 MCG) PO SCH (08:10)
[2016-07-19] MEDS: MethylPREDNISolone 40 MG/ML VIAL IVP SCH ×2 (08:20→17:06)
[2016-07-19] MEDS: FLUoxetine HCl Oral Soln 20 MG/5 ML UDC PO SCH (08:20)
[2016-07-19] MEDS: Pantoprazole 40 MG VIAL IVP SCH (08:21)
--- NOTE | 2016-07-19 10:18 | Palliative Progress Note ---
Date of Encounter: 07/19/16 Time of Encounter: 09:30 - Assessment and plan (1) Dyspnea Current Visit: Yes Status: Chronic Assessment and plan: Supportive care, position for comfort, supplemental O2. Home BiPAP set up pending. Qualifiers: Dyspnea type: dyspnea on exertion Qualified Code(s): R06.09 - Other forms of dyspnea (2) COPD (chronic obstructive pulmonary disease) Current Visit: Yes Status: Acute Assessment and plan: IV steroids and ATB per hospitalist. Discussed disease process with the patient including diagnosis, current treatment/plan of care, senior living prognosis. We reviewed home care needs including the potential for hospice referral. Ms. Gaines would like to continue with her current level of care. Qualifiers: COPD type: COPD with acute exacerbation Qualified Code(s): J44.1 - Chronic obstructive pulmonary disease with (acute) exacerbation (3) Goals of care, counseling/discussion Current Visit: Yes Status: Acute Assessment and plan: rn patient services following for discharge needs. Discussed potential hospice referral for Ms. Gaines. She would like to continue with current treatment with [facility] and [facility]. rn patient services following for discharge needs and advanced directives. Ms. Gaines would like to name her daughter-Alondra Wang as her primary agent, and her daughter-Belinda Duenas as the first alternate. (4) Anxiety about health Current Visit: Yes Status: Acute Assessment and plan: Buspar and Prozac as home medications. Lorazepam IV every 2 hours as needed with a total of 4 doses in the past 24 hours. Continue to monitor. - Time Spent With Patient Total time spent is greater than 50% in coordination of care (as documented) at patient's floor/unit and/or counseling patient: - Subjective Interval history: Ms. Gaines is lying in bed eating morning meal. She was able to eat at least 50 % of her morning meal. She reports having a BM yesterday, but this is not supported in nursing documentation. Ms. Gaines had an episode of agitation last night, and was unable to tolerate BiPAP. - Constitutional Vitals: Abnormal lab results RBC 2.98 M/mcL (3.82-4.97) L 07/18/16 04:39 Hgb 8.6 g/dL (11.5-15.4) L 07/18/16 04:39 Hct 29.5 % (35.3-44.9) L 07/18/16 04:39 MCHC 29.2 g/dL (31.6-35.5) L 07/18/16 04:39 MPV 9.3 fL (9.4-12.4) L 07/18/16 04:39 Lymphocytes # 0.4 K/mcL (0.6-4.6) L 07/18/16 04:39 ABG pCO2 91 mmHg (35-45) H* 07/17/16 05:41 ABG HCO3 50.2 mEQ/L (21-27) H 07/17/16 05:41 ABG Total CO2 53.0 mEq/L (20-26) H 07/17/16 05:41 ABG Base Excess 21.0 mEq/L (-2.0 to 3.0) H 07/17/16 05:41 VBG pH 7.28 pH Units (7.32-7.42) L 07/15/16 11:14 VBG pCO2 121 mmHg (41-51) H 07/15/16 11:14 VBG pO2 47 mmHg (25-40) H 07/15/16 11:14 VBG HCO3 56.9 mEq/L (21-27) H 07/15/16 11:14 Chloride 95 mEq/L (98-109) L 07/18/16 04:39 Carbon Dioxide 42 mEq/L (19-29) H* 07/18/16 04:39 Creatinine 0.55 mg/dL (0.57-1.11) L 07/18/16 04:39 Glucose 141 mg/dL (70-99) H 07/18/16 04:39 General appearance: Present: cooperative, no acute distress - Eye Additional comments: legally blind - ENT ENT exam: Present: mucous membranes moist - Respiratory Respiratory exam: Present: decreased breath sounds. Absent: accessory muscle use, respiratory distress - Cardiovascular Cardiovascular exam: Present: RRR - GI/Abdominal GI/Abdominal exam: Present: normal bowel sounds, soft. Absent: tenderness - Extremities Exam Extremities exam: Present: normal inspection. Absent: pedal edema - Neurological Exam Neurological exam: Present: alert, oriented X3, no focal deficits - Skin Skin exam: Present: dry, warm Palliative Quality Palliative Quality: Screen for Code Status: Yes, Screen for Goals of Care: Yes, Screen for Pain: Yes, If Pain Regimen Started, Initiate Bowel Regimen: Yes, Screen for Nausea/Vomitting: Yes - Labs CBC & Chem 7: 07/18/16 04:39 07/18/16 04:39 - ABG Interpretation ABG results: ABG ABG pH 7.35 pH Units (7.32-7.45) 07/17/16 05:41 ABG pCO2 91 mmHg (35-45) H* 07/17/16 05:41 ABG pO2 103 mmHg (85-104) 07/17/16 05:41 ABG O2 Saturation 98 % (95-98) 07/17/16 05:41 Consult Discharge Plan - Plan Referrals: Reanna Pagan MD [Primary Care Provider] -
[2016-07-19 11:10] LABS: ABG Base Excess 18.4 mEq/L (-2.0 to 3.0); ABG HCO3 49.8 mEQ/L (21-27); ABG Oxygen Saturation 99 % (95-98); ABG PH 7.23 pH Units (7.32-7.45); ABG PO2 153 mmHg (85-104); ABG TCO2 53.5 mEq/L (20-26)
[2016-07-19 11:11] LABS: Blood Gas FiO2 36 %; Blood Gas Liter Flow 4 L/MIN
[2016-07-19 11:13] LABS: ABG PCO2 119 mmHg (35-45)
[2016-07-19] MEDS: Budesonide/Formoterol 80/4.5 MDI IH SCH ×2 (11:15→23:41)
[2016-07-19] MEDS: 0.9 % Sodium Chloride 1,000 ML IVC SCH (11:25)
[2016-07-19 12:12] LABS: Eosinophils % 0.1 %; Immature Platelets 2.9 % (1.1-6.1); Mean Platelet Volume 9.3 fL (9.4-12.4); Nucleated Red Blood Cells 0.3 /100 WBC (0)
[2016-07-19 12:14] LABS: Basophils % 0.3 %; Hematocrit 34.6 % (35.3-44.9); Hemoglobin 9.8 g/dL (11.5-15.4); Lymphocytes # 0.5 K/mcL (0.6-4.6); Lymphocytes % 5.1 %; Mean Corpuscular HGB Conc 28.3 g/dL (31.6-35.5); Mean Corpuscular Hemoglobin 28.7 pg (28.0-33.3); Mean Corpuscular Volume 101.2 fL (83.0-100.0); Monocytes # 0.6 K/mcL (0.0-1.3); Monocytes % 6.6 %; Platelet Count 291 K/mcL (140-400); Red Blood Count 3.42 M/mcL (3.82-4.97); Segmented Neutrophils % 83.9 %
[2016-07-19 12:18] LABS: Neutrophils # 7.6 K/mcL (1.6-8.9)
[2016-07-19 12:23] LABS: BUN/Creatinine Ratio 24 (6-26); Blood Urea Nitrogen 15 mg/dL (7-20); Calcium 8.9 mg/dL (8.6-10.8); Chloride 94 mEq/L (98-109); Glucose 176 mg/dL (70-99); Osmolality,Calculated 303 (280-300); Potassium 4.3 mEq/L (3.5-4.5); Sodium 144 mEq/L (136-145); eGFR For African Americans > 60 (> 60); eGFR For Non-African Americans > 60 (> 60)
[2016-07-19 12:25] LABS: Carbon Dioxide 41 mEq/L (19-29)
[2016-07-19 12:51] LABS: Hypochromasia Present (Not Present)
[2016-07-19] MEDS: Ibuprofen 400 MG TABLET PO PRN ×2 (13:44→21:36)
--- NOTE | 2016-07-19 17:22 | Internal Med Progress Note ---
Date of Encounter: 07/19/16 Time of Encounter: 17:19 - Assessment and plan (1) Altered mental state Current Visit: Yes Status: Acute Assessment and plan: Possible secondary to hypercapnia from end-stage COPD. Repeat ABG today shows worse hypercapnia possible secondary to multiple doses of Ativan last night. Patient currently alert and oriented 2. We will continue BiPAP during the day and repeat ABG in the evening. Mental status seems to have improved compared to the morning. We will continue to monitor. Qualifiers: Altered mental status type: somnolence Qualified Code(s): R40.0 - Somnolence (2) Acute exacerbation of chronic obstructive airways disease Current Visit: No Status: Acute Assessment and plan: Patient has chronic hypercapnia, however repeat ABG this morning shows worsening CO2 possible secondary to multiple doses of Ativan last night. Currently saturating well on 4l nasal cannula. We will continue scheduled duo nebs and IV steroids. no indication of IV antibiotics Chest x-ray shows no infiltrate, has cardiomegaly and advanced emphysema. Will continue Advair and Singulair and roflumilast that he was taking at home. (3) Acute on chronic respiratory failure with hypercapnia Current Visit: No Status: Acute Assessment and plan: plan as above. she tends to live with a higher baseline PCO2, even with PCO2 in 990s, her ph was normal and her mental status was appropriate. will not be very aggressive in bringing down her PCO2, she may be ok as long as she is not acidotic. plan is to go to ECF now, BIPAP has been qualified. will observe overnight should not get multiple doses of ativan, if stable, can be dc to ECF tom. - Time Spent With Patient 25 - 35 minutes - Subjective Interval history: Patient seen at the bedside, reported by the nurse that at night mady did not tolerate the BIPAP well and received multiple doses of ativan. however settled down on NC later. Admitted for acute respiratory failure secondary to COPD exacerbation. Seen at the bedside, appears awake, looks less drowsy as compared to early today in the morning and answering appropriately. - Constitutional Vitals: Temp Pulse Resp BP Pulse Ox 97.2 F L 86 21 126/75 95 07/19/16 15:18 07/19/16 15:18 07/19/16 16:14 07/19/16 15:18 07/19/16 16:14 General appearance: Present: A&O X 2, underweight Exam: O/E: Appears in no acute respiratory distress. HEENT: Not pale, anicteric, afebrile, acyanotic, Chest: Diminished air entry bilaterally, prolonged expiratory phase. Heart: RRR, HS1/2, no murmur Abdomen: obese, soft, non-tender, no masses. COREMAKING MACHINE SETTER: AAO x 2, no gross focal neurological deficits Skin: No active skin lesion Extremities: No pedal edema, normal pedal pulses, no calf tenderness. Internal Medicine: Result - Labs CBC & Chem 7: 07/19/16 11:59 07/19/16 11:59 Labs: Short CBC 07/19/16 Range/Units 11:59 WBC 9.0 (4.3-11.1) K/mcL Hgb 9.8 L (11.5-15.4) g/dL Hct 34.6 L (35.3-44.9) % Plt Count 291 (140-400) K/mcL Neutrophils # 7.6 (1.6-8.9) K/mcL BMP 07/19/16 11:59 Sodium 144 Potassium 4.3 Chloride 94 L Carbon Dioxide 41 H* BUN 15 Creatinine 0.63 Glucose 176 H Calcium 8.9 - ABG Interpretation ABG results: ABG ABG pH 7.23 pH Units (7.32-7.45) L 07/19/16 11:02 ABG pCO2 119 mmHg (35-45) H* 07/19/16 11:02 ABG pO2 153 mmHg (85-104) H 07/19/16 11:02 ABG O2 Saturation 99 % (95-98) H 07/19/16 11:02 Consult Discharge Plan - Plan Referrals: Reanna Pagan MD [Primary Care Provider] -
[2016-07-19 17:53] LABS: ABG Base Excess 18.6 mEq/L (-2.0 to 3.0); ABG HCO3 49.4 mEQ/L (21-27); ABG Oxygen Saturation 99 % (95-98); ABG PH 7.26 pH Units (7.32-7.45); ABG PO2 132 mmHg (85-104); ABG TCO2 52.8 mEq/L (20-26)
[2016-07-19 17:54] LABS: Blood Gas FiO2 36 %
[2016-07-19 17:55] LABS: ABG PCO2 110 mmHg (35-45)
[2016-07-19] MEDS: Saline Nasal Spray 44 ML BOTTLE NS PRN (21:35)
[2016-07-20] MEDS: *HR* LORazepam 2 MG/ML VIAL IVP PRN ×2 (00:20→23:58)
[2016-07-20] MEDS: MethylPREDNISolone 40 MG/ML VIAL IVP SCH ×2 (00:21→09:30)
[2016-07-20 04:20] LABS: ABG Base Excess 20.9 mEq/L (-2.0 to 3.0); ABG HCO3 48.6 mEQ/L (21-27); ABG Oxygen Saturation 100 % (95-98); ABG PH 7.42 pH Units (7.32-7.45); ABG PO2 173 mmHg (85-104); ABG TCO2 50.9 mEq/L (20-26)
[2016-07-20 04:21] LABS: Blood Gas FiO2 40 %; Blood Gas Liter Flow 5 L/MIN
[2016-07-20 04:23] LABS: ABG PCO2 75 mmHg (35-45)
[2016-07-20] MEDS: Ipratropium/Albuterol Neb 3 ML IH SCH ×4 (04:30→20:56)
[2016-07-20] MEDS: *HR* Enoxaparin 40 MG/0.4 ML SYRINGE SQ SCH (05:55)
[2016-07-20] MEDS: 0.9 % Sodium Chloride 1,000 ML IVC SCH (05:55)
[2016-07-20] MEDS: Ibuprofen 400 MG TABLET PO PRN ×2 (09:30→20:22)
[2016-07-20] MEDS: Ondansetron 4 MG/2 ML VIAL IVP PRN ×2 (09:30→20:22)
[2016-07-20] MEDS: (Roflumilast [Daliresp] 500 MCG) PO SCH (09:31)
[2016-07-20] MEDS: FLUoxetine HCl Oral Soln 20 MG/5 ML UDC PO SCH (09:31)
[2016-07-20] MEDS: Budesonide/Formoterol 80/4.5 MDI IH SCH ×2 (11:27→20:56)
[2016-07-20] MEDS: Acetylcysteine 10% 2 ML INHSOL IH SCH ×2 (16:29→20:56)
[2016-07-20] MEDS: methylPREDNISolone 125 MG/2 ML VIAL IVP SCH ×2 (18:23→23:58)
[2016-07-20] MEDS ORDERED: Haloperidol Lactate 5 MG/ML VIAL IVP PRN (19:04)
--- NOTE | 2016-07-20 19:08 | Internal Med Progress Note ---
Date of Encounter: 07/20/16 Time of Encounter: 19:06 - Assessment and plan (1) Acute exacerbation of chronic obstructive airways disease Current Visit: No Status: Acute (2) Chronic respiratory acidosis Current Visit: No Status: Acute (3) Diastolic CHF Current Visit: No Status: Chronic Assessment and plan: patient's lung sounds are still very diminshed, not ready for discharge. will increase steroids, add mucomyst nebs and continue duonebs. continue bipap nightly as tolerated repeat abg in the am. monitor ins and outs. daily weights. Qualifiers: Congestive heart failure chronicity: unspecified congestive heart failure chronicity Qualified Code(s): I50.30 - Unspecified diastolic (congestive) heart failure - Subjective Interval history: reports mild improvement in breathing but still very congested. - Constitutional Vitals: Temp Pulse Resp BP Pulse Ox 98.0 F 61 18 154/68 100 07/20/16 15:13 07/20/16 15:13 07/20/16 16:31 07/20/16 15:13 07/20/16 16:31 General appearance: Present: A&O X 2, underweight - Head Head exam: Present: atraumatic, normocephalic - Eye Eye exam: Present: PERRL, conjuntiva pink, sclera anicteric Pupils: Present: PERRL - Neck Neck exam general surgery: Present: supple, trachea midline. Absent: lymphadenopathy - Respiratory Respiratory exam: Present: decreased breath sounds, wheezes. Absent: accessory muscle use, rales, rhonchi - Cardiovascular Cardiovascular exam: Present: RRR, +S1, +S2. Absent: diastolic murmur, gallop, rubs, systolic murmur - GI/Abdominal GI/Abdominal exam: Present: normal bowel sounds, soft, no peritoneal signs. Absent: distended, tenderness - Extremities Exam Extremities exam: Present: warm, radial pulses palpable and symetrical. Absent : calf tenderness, cyanotic, pedal edema - Neurological Exam Neurological exam: Present: CN II-XII intact, oriented X3, no focal deficits. Absent: pronater drift, facial droop, speech deficit - Skin Skin exam: Present: dry, intact Internal Medicine: Result - Labs CBC & Chem 7: 07/19/16 11:59 07/19/16 11:59 - ABG Interpretation ABG results: ABG ABG pH 7.42 pH Units (7.32-7.45) 07/20/16 04:13 ABG pCO2 75 mmHg (35-45) H* 07/20/16 04:13 ABG pO2 173 mmHg (85-104) H 07/20/16 04:13 ABG O2 Saturation 100 % (95-98) H 07/20/16 04:13 Consult Discharge Plan - Plan Referrals: Reanna Pagan MD [Primary Care Provider] -
[2016-07-20] MEDS ORDERED: Water for inj. (sterile) 10 ML IV ONE (23:56)
[2016-07-21] MEDS: Acetylcysteine 10% 2 ML INHSOL IH SCH ×5 (00:38→15:31)
[2016-07-21] MEDS: Ipratropium/Albuterol Neb 3 ML IH SCH ×4 (00:38→11:59)
[2016-07-21 04:51] LABS: Mean Corpuscular Volume 100.9 fL (83.0-100.0); Nucleated Red Blood Cells 0.2 /100 WBC (0)
[2016-07-21 04:53] LABS: Hematocrit 32.5 % (35.3-44.9); Hemoglobin 9.4 g/dL (11.5-15.4); Mean Corpuscular HGB Conc 28.9 g/dL (31.6-35.5); Mean Corpuscular Hemoglobin 29.2 pg (28.0-33.3); Mean Platelet Volume 9.3 fL (9.4-12.4); Platelet Count 258 K/mcL (140-400); Red Blood Count 3.22 M/mcL (3.82-4.97)
[2016-07-21 05:10] LABS: BUN/Creatinine Ratio 20 (6-26); Blood Urea Nitrogen 13 mg/dL (7-20); Calcium 9.3 mg/dL (8.6-10.8); Chloride 89 mEq/L (98-109); Glucose 312 mg/dL (70-99); Osmolality,Calculated 308 (280-300); Potassium 4.4 mEq/L (3.5-4.5); Sodium 143 mEq/L (136-145); eGFR For African Americans > 60 (> 60); eGFR For Non-African Americans > 60 (> 60)
[2016-07-21 05:14] LABS: Carbon Dioxide 45 mEq/L (19-29)
[2016-07-21 05:35] LABS: Lymphocytes # 0.5 K/mcL (0.6-4.6); Neutrophils # 8.4 K/mcL (1.6-8.9)
[2016-07-21 05:36] LABS: Platelet Estimate Normal (Normal)
[2016-07-21] MEDS ORDERED: Melatonin 3 MG TABLET PO PRN (06:01)
[2016-07-21 06:12] LABS: ABG Base Excess 27.1 mEq/L (-2.0 to 3.0); ABG HCO3 57.7 mEQ/L (21-27); ABG Oxygen Saturation 99 % (95-98); ABG PH 7.34 pH Units (7.32-7.45); ABG PO2 155 mmHg (85-104); Blood Gas FiO2 36 %
[2016-07-21 06:14] LABS: ABG PCO2 107 mmHg (35-45)
[2016-07-21] MEDS: *HR* Enoxaparin 40 MG/0.4 ML SYRINGE SQ SCH ×2 (06:16→06:22)
[2016-07-21] MEDS: Budesonide/Formoterol 80/4.5 MDI IH SCH (07:41)
[2016-07-21] MEDS: methylPREDNISolone 125 MG/2 ML VIAL IVP SCH ×2 (09:04→12:59)
[2016-07-21] MEDS: FLUoxetine HCl Oral Soln 20 MG/5 ML UDC PO SCH (09:15)
[2016-07-21] MEDS: (Roflumilast [Daliresp] 500 MCG) PO SCH (09:16)
[2016-07-21] MEDS: Ibuprofen 400 MG TABLET PO PRN (11:39)
--- NOTE | 2016-07-21 14:08 | Palliative Progress Note ---
Date of Encounter: 07/21/16 Time of Encounter: 10:00 - Assessment and plan (1) Dyspnea Current Visit: Yes Status: Chronic Assessment and plan: BiPAP as tolerated. Supplemental O2 at 4 Lpm via nasal cannula. Position for comfort. Update: Met with patient and family (son-Ventura, daughters-Alondra and Belinda) regarding plan of care. Reviewed disease progress, treatment options, plan of care, discharge options. Reviewed hospice eligibility, support services, and hospice philosophy. Family and patient were active participants in conversations with appropriate questions. Patient and family continue to contemplate options. Qualifiers: Dyspnea type: dyspnea on exertion Qualified Code(s): R06.09 - Other forms of dyspnea (2) COPD (chronic obstructive pulmonary disease) Current Visit: Yes Status: Acute Assessment and plan: IV steroids and ATB per hospitalist. BiPAP as tolerated. Discussed disease process with the patient including diagnosis, current treatment/plan of care, residential prognosis. We reviewed home care needs including the potential for hospice referral. Qualifiers: COPD type: COPD with acute exacerbation Qualified Code(s): J44.1 - Chronic obstructive pulmonary disease with (acute) exacerbation (3) Goals of care, counseling/discussion Current Visit: Yes Status: Acute Assessment and plan: manager creative services following for discharge needs. Discussed potential hospice referral for Ms. Gaines. manager creative services following for discharge needs and advanced directives (completed yesterday). Ms. Gaines named her daughter-Alondra Wang as her primary agent, and her daughter-Belinda Duenas as the first alternate. (4) Anxiety about health Current Visit: Yes Status: Acute Assessment and plan: Buspar and Prozac as home medications. Concerns that lorazepam is contributing to increased agitation. May consider haldol as an alternative. Continue to follow. - Time Spent With Patient Total time spent is greater than 50% in coordination of care (as documented) at patient's floor/unit and/or counseling patient: - Subjective Interval history: Ms. Gaines is sitting up in bed on BiPAP with son at bedside. She reports feeling almost to baseline. Ms. Gaines is able to carry on conversation with minimal shortness of breath. She reports a good appetite. - Constitutional Vitals: Abnormal lab results RBC 3.22 M/mcL (3.82-4.97) L 07/21/16 04:35 Hgb 9.4 g/dL (11.5-15.4) L 07/21/16 04:35 Hct 32.5 % (35.3-44.9) L 07/21/16 04:35 MCV 100.9 fL (83.0-100.0) H 07/21/16 04:35 MCHC 28.9 g/dL (31.6-35.5) L 07/21/16 04:35 MPV 9.3 fL (9.4-12.4) L 07/21/16 04:35 Lymphocytes # 0.5 K/mcL (0.6-4.6) L 07/21/16 04:35 Nucleated RBCs/100 WBC 0.2 /100 WBC (0) H 07/21/16 04:35 Hypochromasia Present (Not Present) A 07/19/16 11:59 ABG pCO2 107 mmHg (35-45) H* 07/21/16 05:50 ABG pO2 155 mmHg (85-104) H 07/21/16 05:50 ABG HCO3 57.7 mEQ/L (21-27) H 07/21/16 05:50 ABG Total CO2 61.0 mEq/L (20-26) H 07/21/16 05:50 ABG O2 Saturation 99 % (95-98) H 07/21/16 05:50 ABG Base Excess 27.1 mEq/L (-2.0 to 3.0) H 07/21/16 05:50 VBG pH 7.28 pH Units (7.32-7.42) L 07/15/16 11:14 VBG pCO2 121 mmHg (41-51) H 07/15/16 11:14 VBG pO2 47 mmHg (25-40) H 07/15/16 11:14 VBG HCO3 56.9 mEq/L (21-27) H 07/15/16 11:14 Chloride 89 mEq/L (98-109) L 07/21/16 04:35 Carbon Dioxide 45 mEq/L (19-29) H* 07/21/16 04:35 Glucose 312 mg/dL (70-99) H 07/21/16 04:35 Calculated Osmolality 308 (280-300) H 07/21/16 04:35 General appearance: Present: cooperative, no acute distress - Respiratory Respiratory exam: Present: decreased breath sounds. Absent: accessory muscle use, respiratory distress, tachypnea - Cardiovascular Cardiovascular exam: Present: RRR - GI/Abdominal GI/Abdominal exam: Present: soft. Absent: tenderness - Extremities Exam Extremities exam: Absent: normal inspection - Neurological Exam Neurological exam: Present: alert, oriented X3, no focal deficits - Psychiatric Psychiatric exam: Present: flat affect - Skin Skin exam: Present: normal color Palliative Quality Palliative Quality: Screen for Code Status: Yes, Screen for Goals of Care: Yes, Screen for Pain: Yes, If Pain Regimen Started, Initiate Bowel Regimen: Yes, Screen for Nausea/Vomitting: Yes - Labs CBC & Chem 7: 07/21/16 04:35 07/21/16 04:35 Labs: Laboratory Results - last 24 hr 07/21/16 07/21/16 07/21/16 04:35 04:35 05:50 WBC 8.9 RBC 3.22 L Hgb 9.4 L Hct 32.5 L MCV 100.9 H MCH 29.2 MCHC 28.9 L RDW 12.0 Plt Count 258 MPV 9.3 L Seg Neutrophils % 94.0 Lymphocytes % 6.0 Neutrophils # 8.4 Lymphocytes # 0.5 L Nucleated RBCs/100 WBC 0.2 H Platelet Estimate Normal ABG pH 7.34 ABG pCO2 107 H* ABG pO2 155 H ABG HCO3 57.7 H ABG Total CO2 61.0 H ABG O2 Saturation 99 H ABG Base Excess 27.1 H Blood Gas Modality NC Inspired O2 36 Sodium 143 Potassium 4.4 Chloride 89 L Carbon Dioxide 45 H* BUN 13 Creatinine 0.65 Est GFR ( Amer) > 60 Est GFR (Non-Af Amer) > 60 BUN/Creatinine Ratio 20 Glucose 312 H Calculated Osmolality 308 H Calcium 9.3 - ABG Interpretation ABG results: ABG ABG pH 7.34 pH Units (7.32-7.45) 07/21/16 05:50 ABG pCO2 107 mmHg (35-45) H* 07/21/16 05:50 ABG pO2 155 mmHg (85-104) H 07/21/16 05:50 ABG O2 Saturation 99 % (95-98) H 07/21/16 05:50 Consult Discharge Plan - Plan Referrals: Reanna Pagan MD [Primary Care Provider] -
[2016-07-21 15:25] VITALS: BP 146/71
--- NOTE | 2016-07-21 16:25 | Discharge Summary ---
Date of Encounter: 07/21/16 Time of Encounter: 16:14 - Discharge Diagnosis (1) Acute exacerbation of chronic obstructive airways disease Priority: Primary Status: Acute (2) Chronic respiratory acidosis Priority: Secondary Status: Acute (3) Diastolic CHF Priority: Secondary Status: Chronic Qualifiers: Congestive heart failure chronicity: unspecified congestive heart failure chronicity Qualified Code(s): I50.30 - Unspecified diastolic (congestive) heart failure - Discharge Medications Prescriptions: Levofloxacin [Levaquin] 500 mg PO DAILY #7 tablet PredniSONE 20 mg PO AD #90 tablet Home Medications: Guaifenesin [Mucinex] 600 mg PO BID 02/04/16 [History] Roflumilast [Daliresp] 500 mcg PO DAILY 02/04/16 [History] TraZODone 25 mg PO HS 02/04/16 [History] Alendronate Sodium [Fosamax] 70 mg PO TH 02/05/16 [History] Calcium/Magnesium/Vit D3 [Calcium 500 mg Tablet] 1 tab PO BID 02/05/16 [History] Oxygen 4 l NS AD 02/05/16 [History] Albuterol Neb [Proventil Neb] 2.5 mg IH Q2H PRN #0 inhsol 03/14/16 [Rx] Atorvastatin [Lipitor] 20 mg PO DAILY tablet 03/14/16 [Rx] Buspirone HCl [Buspar] 15 mg PO BID tablet 03/14/16 [Rx] FLUoxetine HCl [Prozac] 20 mg PO DAILY udc 03/14/16 [Rx] Ferrous Sulfate 325 mg PO DAILY tablet 03/14/16 [Rx] Montelukast [Singulair] 10 mg PO HS tablet 03/14/16 [Rx] Theophylline Anhydrous [Phong-24] 300 mg PO DAILY cap.er.24h 03/14/16 [Rx] Albuterol Sulfate [Proair Hfa] 2 puff IH Q4-6H PRN 07/15/16 [History] Aspirin [Lo-Dose Aspirin EC] 81 mg PO DAILY 07/15/16 [History] Cyclobenzaprine [Flexeril] 10 mg PO HS 07/15/16 [History] Loratadine [Allergy Relief] 10 mg PO DAILY 07/15/16 [History] Omeprazole [PriLOSEC] 20 mg PO DAILY 07/15/16 [History] Ipratropium/Albuterol Neb [Duoneb] 3 ml IH [id number] inhsol 07/21/16 [Rx] Levofloxacin [Levaquin] 500 mg PO DAILY #7 tablet 07/21/16 [Rx] PredniSONE 20 mg PO AD #90 tablet 07/21/16 [Rx] Allergies/Adverse Reactions: Allergies No Known Allergies Allergy (Verified 02/04/16 19:19) Date of admission: 07/15/16 15:49 Primary care physician: Reanna Pagan Consults: 07/19/16 11:04 OT [Consult to Occupational Therapy] [CONS] Stat Comment: Evaluate, develop and implement POC PT [Consult to Physical Therapy] [CONS] Routine Comment: Evaluate, develop and implement POC - Patient Status Disposition: Transfer SNF Condition: Fair Overall status at discharge: patient is progressing back to baseline - Discharge Instructions Follow Up With: Reanna Pagan MD [Primary Care Provider] - - Diet and Activity Activity: increase activity as tolerated Diet: advance to your usual diet Hospital course: Ms. Gaines is a 65 year old female with chronic resp failure who presented with worsening SOB in acute exacerbation, she was treated with bipap, steroids and nebs with moderate improvement. She has end stage lung disease and poor overall baseline. Patient was also seen by paliative team and remains is now a DNRCCA/ DNI. She is stable for discharged today to SNF. - Time Spent with Patient Total time spent providing and/or coordinating discharge services: - Constitutional Vitals: Temp Pulse Resp BP Pulse Ox 98.0 F 103 16 146/71 99 07/21/16 15:21 07/21/16 15:21 07/21/16 15:35 07/21/16 15:35 07/21/16 15:35 General appearance: Present: A&O X 2, underweight - Head Head exam: Present: atraumatic, normocephalic - Eye Eye exam: Present: PERRL, conjuntiva pink, sclera anicteric Pupils: Present: PERRL - Neck Neck exam general surgery: Present: supple, trachea midline. Absent: lymphadenopathy - Respiratory Respiratory exam: Present: decreased breath sounds, wheezes. Absent: accessory muscle use, rales, rhonchi - Cardiovascular Cardiovascular exam: Present: RRR, +S1, +S2. Absent: diastolic murmur, gallop, rubs, systolic murmur - GI/Abdominal GI/Abdominal exam: Present: normal bowel sounds, soft, no peritoneal signs. Absent: distended, tenderness - Extremities Exam Extremities exam: Present: warm, radial pulses palpable and symetrical. Absent : calf tenderness, cyanotic, pedal edema - Neurological Exam Neurological exam: Present: CN II-XII intact, oriented X3, no focal deficits. Absent: pronater drift, facial droop, speech deficit - Skin Skin exam: Present: dry, intact
--- NOTE | 2016-07-21 17:35 | Physician Discharge Referral ---
ExtendedCare Referral Info Transfer To: SNF Institutional Level of Care: Skilled - Diagnosis (1) Acute exacerbation of chronic obstructive airways disease Status: Acute (2) Chronic respiratory acidosis Status: Acute (3) Diastolic CHF Status: Chronic - Transfer Medications Prescriptions: Levofloxacin [Levaquin] 500 mg PO DAILY #7 tablet PredniSONE 20 mg PO AD #90 tablet Home Medications: Guaifenesin [Mucinex] 600 mg PO BID 02/04/16 [History] Roflumilast [Daliresp] 500 mcg PO DAILY 02/04/16 [History] TraZODone 25 mg PO HS 02/04/16 [History] Alendronate Sodium [Fosamax] 70 mg PO TH 02/05/16 [History] Calcium/Magnesium/Vit D3 [Calcium 500 mg Tablet] 1 tab PO BID 02/05/16 [History] Oxygen 4 l NS AD 02/05/16 [History] Albuterol Neb [Proventil Neb] 2.5 mg IH Q2H PRN #0 inhsol 03/14/16 [Rx] Atorvastatin [Lipitor] 20 mg PO DAILY tablet 03/14/16 [Rx] Buspirone HCl [Buspar] 15 mg PO BID tablet 03/14/16 [Rx] FLUoxetine HCl [Prozac] 20 mg PO DAILY udc 03/14/16 [Rx] Ferrous Sulfate 325 mg PO DAILY tablet 03/14/16 [Rx] Montelukast [Singulair] 10 mg PO HS tablet 03/14/16 [Rx] Theophylline Anhydrous [Phong-24] 300 mg PO DAILY cap.er.24h 03/14/16 [Rx] Albuterol Sulfate [Proair Hfa] 2 puff IH Q4-6H PRN 07/15/16 [History] Aspirin [Lo-Dose Aspirin EC] 81 mg PO DAILY 07/15/16 [History] Cyclobenzaprine [Flexeril] 10 mg PO HS 07/15/16 [History] Loratadine [Allergy Relief] 10 mg PO DAILY 07/15/16 [History] Omeprazole [PriLOSEC] 20 mg PO DAILY 07/15/16 [History] Ipratropium/Albuterol Neb [Duoneb] 3 ml IH [id number] inhsol 07/21/16 [Rx] Levofloxacin [Levaquin] 500 mg PO DAILY #7 tablet 07/21/16 [Rx] PredniSONE 20 mg PO AD #90 tablet 07/21/16 [Rx] Allergies/Adverse Reactions: Allergies No Known Allergies Allergy (Verified 02/04/16 19:19) - Respiratory Orders Other (Bipap 06/12 adjust as needed.) Smoking Cessation: Smoking cessation has been advised. For more information, call the [place] Tobacco Quit Line at 8-473-EMTN-NOW. - Advance Directives Code Status: DNR-Arrest/Don't Intubate - Mobility Orders Chair CERTIFICATION: I certify that the transfer of the above named patient to an Extended Care Facility is necessary for the continuing treatment of the diagnosis listed. The above information is true and accurate reflection of patient's current condition. Confidential - Redisclosure prohibited without a patient's written consent.
== END 2016-07-21 18:13 | DRG 189 ==
LOC: 3BNU 09:55 → EMEROO 09:55 → 3BNU 14:35 → SUATTDRO 15:49
PROVIDERS: ADMIT Nurse Practitioner Family; ATTEND Family Medicine

== ENCOUNTER 2016-10-17 10:21 | Inpatient (IN) ==
[2016-10-17] MEDS ORDERED: Ipratropium/Albuterol Neb 3 ML IH ONE (10:32)
[2016-10-17] MEDS ORDERED: methylPREDNISolone 125 MG/2 ML VIAL IVP ONE (10:32)
--- NOTE | 2016-10-17 10:35 | Emergency Department Note ---
Disposition Clinical Impression: Acute exacerbation of chronic obstructive pulmonary disease (COPD), Respiratory acidosis Disposition: Admitted As Inpatient Condition: Fair Referrals: Reanna Pagan MD [Primary Care Provider] - Forms: ED Satisfaction Letter Time of Disposition: 11:43 SOB HPI - General Chief Complaint: ED Shortness of Breath/Dyspnea Stated Complaint: SOB Time Seen by Provider: 10/17/16 10:32 Source: patient, EMS Mode of arrival: EMS Limitations: no limitations Nursing Notes Reviewed: Yes Vital Signs Reviewed: Yes - History of Present Illness 66-year-old history COPD comes in with shortness of breath and chest pain. Patient states the chest pain started this morning when she woke. 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 Denies: fever, cough Treatment prior to arrival: oxygen, bronchodilator Cough present: No - Related Data Home Medications Medication Instructions Recorded Confirmed Guaifenesin [Mucinex] 600 mg PO BID 02/04/16 07/15/16 Roflumilast [Daliresp] 500 mcg PO DAILY 02/04/16 07/15/16 TraZODone 25 mg PO HS 02/04/16 07/15/16 Alendronate Sodium [Fosamax] 70 mg PO TH 02/05/16 07/15/16 Calcium/Magnesium/Vit D3 [Calcium 1 tab PO BID 02/05/16 07/15/16 500 mg Tablet] Oxygen 4 l NS AD 02/05/16 07/15/16 Albuterol Sulfate [Proair Hfa] 2 puff IH Q4-6H PRN 07/15/16 07/15/16 Aspirin [Lo-Dose Aspirin EC] 81 mg PO DAILY 07/15/16 07/15/16 Cyclobenzaprine [Flexeril] 10 mg PO HS 07/15/16 07/15/16 Loratadine [Allergy Relief] 10 mg PO DAILY 07/15/16 07/15/16 Omeprazole [PriLOSEC] 20 mg PO DAILY 07/15/16 07/15/16 Previous Rx's Medication Instructions Recorded Albuterol Neb [Proventil Neb] 2.5 mg IH Q2H PRN #0 inhsol 09/20/16 Atorvastatin [Lipitor] 20 mg PO DAILY tablet 03/14/16 Buspirone HCl [Buspar] 15 mg PO BID tablet 03/14/16 FLUoxetine HCl [Prozac] 20 mg PO DAILY udc 03/14/16 Ferrous Sulfate 325 mg PO DAILY tablet 03/14/16 Montelukast [Singulair] 10 mg PO HS tablet 03/14/16 Theophylline Anhydrous [Phong-24] 300 mg PO DAILY cap.er.24h 03/14/16 Ipratropium/Albuterol Neb [Duoneb] 3 ml IH [id number] inhsol 07/21/16 Levofloxacin [Levaquin] 500 mg PO DAILY #7 tablet 07/21/16 PredniSONE 20 mg PO AD #90 tablet 07/21/16 Allergies Allergy/AdvReac Type Severity Reaction Status Date / Time No Known Allergies Allergy Verified 02/04/16 19:19 All systems ED: reviewed and negative except as stated. Constitutional: Denies: fever, chills, weakness, weight change Eyes: Denies: eye pain, eye discharge, vision change ENT ED: Denies: ear pain, throat pain, dental pain, hearing loss, epistaxis, congestion, dysphagia Cardiovascular: Reports: chest pain. Denies: palpitations, dyspnea on exertion , edema, syncope Respiratory: Reports: dyspnea, wheezes. Denies: cough, hemoptysis, stridor Gastrointestinal: Denies: abdominal pain, nausea, vomiting, diarrhea, constipation, hematemesis, melena, hematochezia Genitourinary: Denies: dysuria, frequency, hematuria, discharge Musculoskeletal: Denies: back pain, neck pain, arthralgia, myalgia Integumentary: Denies: rash, abrasion, lesions Neurological: Denies: headache, weakness, numbness, paresthesias, confusion, abnormal gait, vertigo Psychiatric: Denies: anxiety, depression, suicidal thoughts, homicidal thoughts , auditory hallucinations, visual hallucinations Endocrine: Denies: fatigue Hematological/Lymphatic: Denies: easy bleeding, easy bruising Allergic/Immunologic: Denies: facial swelling, urticaria Past Medical History - Past Medical History Medical history: Reports: CHF, COPD, GERD, hyperlipidemia, hypertension, other Surgical history: Reports: appendectomy, other Psychiatric history: Reports: anxiety - Social History Smoking Status: Former smoker Smokeless Tobacco Status: No Alcohol use: Reports: none Drug use: Reports: none Physical Exam - General Limitations: no limitations General appearance: alert - Head Head exam: atraumatic, normocephalic, normal inspection - Eye Eye exam: Present: normal appearance, PERRL, EOMI - ENT ENT exam: normal exam, normal oropharynx, mucous membranes moist - Neck Neck exam: Present: normal inspection, full ROM, trachea midline - Chest Chest inspection: Present: normal inspection, symmetric chest wall rise - Respiratory Respiratory exam: Present: wheezes, other (Diminished breath sounds) - Cardiovascular Cardiovascular exam: Present: regular rate, normal rhythm, normal heart sounds - Abdominal Exam Abdominal exam: Present: soft, Non-Tender. Absent: tenderness, distention, guarding, rebound, rigidity - Extremities Exam Extremities exam: Present: normal inspection, full ROM. Absent: tenderness, pedal edema - Expanded Lower Extremity Exam Neurovascular/Tendon exam: Absent: motor deficit, sensory deficit, tendon deficit Gait: observed and normal - Back Exam Back exam: Present: normal inspection, full ROM. Absent: tenderness - Neurological Exam Neurological exam: Present: alert, oriented X3 - Psychiatric Psychiatric exam: Present: normal affect, normal mood - Skin Skin exam: Present: warm, dry, intact, normal color Course - Reevaluation(s) Reevaluation #1: 66-year-old with history COPD comes in with increasing shortness of breath. Patient was given breathing treatment had some improvement continued to be significantly short of breath. Blood gas shows a comp sated respiratory pattern. Time: 11:46 - Consultations Consultation #1: Discussed with , admit. Time: 11:47 Vital Signs Temperature 98.7 F 10/17/16 10:23 Pulse Rate 107 10/17/16 10:23 Respiratory Rate 24 10/17/16 10:23 Blood Pressure 130/70 10/17/16 10:23 O2 Sat by Pulse Oximetry 99 10/17/16 10:23 Temperature 98.7 F 10/17/16 10:23 Pulse Rate 107 10/17/16 10:23 Respiratory Rate 22 10/17/16 10:41 Blood Pressure 130/70 10/17/16 10:23 O2 Sat by Pulse Oximetry 99 10/17/16 10:41 Oxygen Delivery Oxygen Delivery Nasal Cannula Shortness of Breath/Dyspnea - Lab Data Lab results reviewed: Yes I reviewed the patient's lab results. Result diagrams: 10/17/16 10:49 10/17/16 10:49 Lab Results 10/17/16 10/17/16 10/17/16 Range/Units 10:49 10:49 10:49 WBC 4.7 (4.3-11.1) K/mcL RBC 3.21 L (3.82-4.97) M/mcL Hgb 9.4 L (11.5-15.4) g/dL Hct 31.9 L (35.3-44.9) % MCV 99.4 (83.0-100.0) fL MCH 29.3 (28.0-33.3) pg MCHC 29.5 L (31.6-35.5) g/dL RDW 12.4 (11.5-14.5) % Plt Count 139 L (140-400) K/mcL MPV 9.6 (9.4-12.4) fL Immature Gran % 0.6 (0-4) % Seg Neutrophils % 69.5 % Lymphocytes % 15.6 % Monocytes % 13.0 % Eosinophils % 1.1 % Basophils % 0.2 % Neutrophils # 3.3 (1.6-8.9) K/mcL Lymphocytes # 0.7 (0.6-4.6) K/mcL Monocytes # 0.6 (0.0-1.3) K/mcL Eosinophils # 0.1 (0.0-0.6) K/mcL Basophils # 0.0 (0.0-0.2) K/mcL Platelet Estimate Normal (Normal) Polychromasia 1+ A (Not Present) Basophilic Stippling 1+ A (Not Present) Microcytosis Present A (Not Present) PT 10.8 (9.4-12.1) Seconds INR 1.0 APTT 29.3 (26.0-36.0) Seconds ABG pH (7.32-7.45) pH Units ABG pCO2 (35-45) mmHg ABG pO2 (85-104) mmHg ABG HCO3 (21-27) mEQ/L ABG Total CO2 (20-26) mEq/L ABG O2 Saturation (95-98) % ABG Base Excess (-2.0 to 3.0) mEq/L Liter Flow L/MIN Blood Gas Modality Inspired O2 % Sodium 141 (136-145) mEq/L Potassium 3.9 (3.5-4.5) mEq/L Chloride 85 L (98-109) mEq/L Carbon Dioxide 48 H* (19-29) mEq/L BUN 18 (7-20) mg/dL Creatinine 0.65 (0.57-1.11) mg/dL Est GFR ( Amer) > 60 (> 60) Est GFR (Non-Af Amer) > 60 (> 60) BUN/Creatinine Ratio 28 H (6-26) Glucose 119 H (70-99) mg/dL Calculated Osmolality 295 (280-300) Lactic Acid (0.5-2.2) mmol/L Calcium 9.4 (8.6-10.8) mg/dL Troponin I (0-0.03) ng/mL B-Natriuretic Peptide (0-100) pg/mL 10/17/16 10/17/16 10/17/16 Range/Units 10:49 10:49 10:49 WBC (4.3-11.1) K/mcL RBC (3.82-4.97) M/mcL Hgb (11.5-15.4) g/dL Hct (35.3-44.9) % MCV (83.0-100.0) fL MCH (28.0-33.3) pg MCHC (31.6-35.5) g/dL RDW (11.5-14.5) % Plt Count (140-400) K/mcL MPV (9.4-12.4) fL Immature Gran % (0-4) % Seg Neutrophils % % Lymphocytes % % Monocytes % % Eosinophils % % Basophils % % Neutrophils # (1.6-8.9) K/mcL Lymphocytes # (0.6-4.6) K/mcL Monocytes # (0.0-1.3) K/mcL Eosinophils # (0.0-0.6) K/mcL Basophils # (0.0-0.2) K/mcL Platelet Estimate (Normal) Polychromasia (Not Present) Basophilic Stippling (Not Present) Microcytosis (Not Present) PT (9.4-12.1) Seconds INR APTT (26.0-36.0) Seconds ABG pH (7.32-7.45) pH Units ABG pCO2 (35-45) mmHg ABG pO2 (85-104) mmHg ABG HCO3 (21-27) mEQ/L ABG Total CO2 (20-26) mEq/L ABG O2 Saturation (95-98) % ABG Base Excess (-2.0 to 3.0) mEq/L Liter Flow L/MIN Blood Gas Modality Inspired O2 % Sodium (136-145) mEq/L Potassium (3.5-4.5) mEq/L Chloride (98-109) mEq/L Carbon Dioxide (19-29) mEq/L BUN (7-20) mg/dL Creatinine (0.57-1.11) mg/dL Est GFR ( Amer) (> 60) Est GFR (Non-Af Amer) (> 60) BUN/Creatinine Ratio (6-26) Glucose (70-99) mg/dL Calculated Osmolality (280-300) Lactic Acid 0.4 L (0.5-2.2) mmol/L Calcium (8.6-10.8) mg/dL Troponin I 0.02 (0-0.03) ng/mL B-Natriuretic Peptide 81 (0-100) pg/mL 10/17/ Range/Units 11:24 WBC (4.3-11.1) K/mcL RBC (3.82-4.97) M/mcL Hgb (11.5-15.4) g/dL Hct (35.3-44.9) % MCV (83.0-100.0) fL MCH (28.0-33.3) pg MCHC (31.6-35.5) g/dL RDW (11.5-14.5) % Plt Count (140-400) K/mcL MPV (9.4-12.4) fL Immature Gran % (0-4) % Seg Neutrophils % % Lymphocytes % % Monocytes % % Eosinophils % % Basophils % % Neutrophils # (1.6-8.9) K/mcL Lymphocytes # (0.6-4.6) K/mcL Monocytes # (0.0-1.3) K/mcL Eosinophils # (0.0-0.6) K/mcL Basophils # (0.0-0.2) K/mcL Platelet Estimate (Normal) Polychromasia (Not Present) Basophilic Stippling (Not Present) Microcytosis (Not Present) PT (9.4-12.1) Seconds INR APTT (26.0-36.0) Seconds ABG pH 7.32 (7.32-7.45) pH Units ABG pCO2 108 H* (35-45) mmHg ABG pO2 139 H (85-104) mmHg ABG HCO3 44.7 H (21-27) mEQ/L ABG Total CO2 58.9 H (20-26) mEq/L ABG O2 Saturation 99 H (95-98) % ABG Base Excess 25.4 H (-2.0 to 3.0) mEq/L Liter Flow 4 L/MIN Blood Gas Modality nc Inspired O2 36 % Sodium (136-145) mEq/L Potassium (3.5-4.5) mEq/L Chloride (98-109) mEq/L Carbon Dioxide (19-29) mEq/L BUN (7-20) mg/dL Creatinine (0.57-1.11) mg/dL Est GFR ( Amer) (> 60) Est GFR (Non-Af Amer) (> 60) BUN/Creatinine Ratio (6-26) Glucose (70-99) mg/dL Calculated Osmolality (280-300) Lactic Acid (0.5-2.2) mmol/L Calcium (8.6-10.8) mg/dL Troponin I (0-0.03) ng/mL B-Natriuretic Peptide (0-100) pg/mL - Radiology Data Radiology results reviewed: Yes I reviewed the patient's radiology results. Chest X-Ray 10/17/16 10:32 IMPRESSION: 1. Emphysema. 2. No focal lung infiltrate. D/ / 10/17/2016 11:17:40 Damien Preciado MD / bcarter Interpreting Provider: Damien Preciado MD - EKG Data EKG attestation: Yes I reviewed and interpreted this EKG. EKG shows normal: Reports: sinus rhythm Rate: Reports: tachycardia Rhythm: Reports: PAC's When compared to previous EKG there are: no significant changes (07/15/2016) Interpretation: Reports: no acute changes
[2016-10-17 10:58] LABS: Basophils % 0.2 %
[2016-10-17 10:59] LABS: Eosinophils # 0.1 K/mcL (0.0-0.6); Eosinophils % 1.1 %; Hematocrit 31.9 % (35.3-44.9); Hemoglobin 9.4 g/dL (11.5-15.4); Immature Granulocytes % 0.6 % (0-4); Lymphocytes # 0.7 K/mcL (0.6-4.6); Lymphocytes % 15.6 %; Mean Corpuscular HGB Conc 29.5 g/dL (31.6-35.5); Mean Corpuscular Hemoglobin 29.3 pg (28.0-33.3); Mean Corpuscular Volume 99.4 fL (83.0-100.0); Mean Platelet Volume 9.6 fL (9.4-12.4); Monocytes # 0.6 K/mcL (0.0-1.3); Neutrophils # 3.3 K/mcL (1.6-8.9); Platelet Count 139 K/mcL (140-400); Red Blood Count 3.21 M/mcL (3.82-4.97); Red Cell Distribution Width 12.4 % (11.5-14.5); Segmented Neutrophils % 69.5 %
[2016-10-17 11:03] LABS: Prothrombin Time 10.8 Seconds (9.4-12.1)
[2016-10-17 11:05] LABS: Activated Partial Thrombo Time 29.3 Seconds (26.0-36.0)
[2016-10-17 11:14] LABS: Basophilic Stippling 1+ (Not Present); Platelet Estimate Normal (Normal)
[2016-10-17 11:15] LABS: BUN/Creatinine Ratio 28 (6-26); Blood Urea Nitrogen 18 mg/dL (7-20); Calcium 9.4 mg/dL (8.6-10.8); Chloride 85 mEq/L (98-109); Glucose 119 mg/dL (70-99); Osmolality,Calculated 295 (280-300); Polychromasia 1+ (Not Present); Potassium 3.9 mEq/L (3.5-4.5); Sodium 141 mEq/L (136-145); eGFR For African Americans > 60 (> 60); eGFR For Non-African Americans > 60 (> 60)
[2016-10-17 11:17] LABS: Carbon Dioxide 48 mEq/L (19-29)
[2016-10-17 11:18] LABS: Microcytosis Present (Not Present)
[2016-10-17 11:31] LABS: Blood Gas Liter Flow 4 L/MIN
[2016-10-17 11:32] LABS: ABG Base Excess 25.4 mEq/L (-2.0 to 3.0); ABG HCO3 44.7 mEQ/L (21-27); ABG Oxygen Saturation 99 % (95-98); ABG PH 7.32 pH Units (7.32-7.45); ABG PO2 139 mmHg (85-104); ABG TCO2 58.9 mEq/L (20-26); Blood Gas FiO2 36 %
[2016-10-17 11:34] LABS: ABG PCO2 108 mmHg (35-45)
[2016-10-17] MEDS ORDERED: Naloxone 0.4 MG/ML INJ IVP PRN (12:24)
--- NOTE | 2016-10-17 13:07 | Internal Med History&Physical ---
Date of Encounter: 10/17/16 Time of Encounter: 12:45 Assessment and Plan (1) Chest pain Current visit: Yes Status: Acute Acute chest pain. High-risk for coronary artery disease due to her history of smoking, age and sex. Will monitor with telemetry. Trend troponins. Check lipid profile and A1c. Will also get 2-D echocardiogram given her associated pedal edema. If troponins are negative, Plan for stress test in the morning. Qualifiers: Chest pain type: precordial pain Qualified Code(s): R07.2 - Precordial pain (2) Chronic anemia Current visit: Yes Status: Chronic Patient with chronic anemia. Hemoglobin is at baseline. (3) Chronic respiratory failure with hypoxia and hypercapnia Current visit: Yes Status: Chronic Continue O2 supplementation. (4) COPD (chronic obstructive pulmonary disease) Current visit: Yes Status: Chronic Chronic. Denies any symptoms of exacerbation at this time. We will treat symptomatically as needed with bronchodilator nebs. Will check theophylline level due to patient's description of palpitations. Qualifiers: COPD type: unspecified COPD Qualified Code(s): J44.9 - Chronic obstructive pulmonary disease, unspecified Internal Medicine - H&P: HPI Chief complaint: Chest pain Admitted From: Emergency Dept Plans for Post Hospital Care: Home History of present illness: Ms. Gaines is a 66 year old female With history of COPD and chronic hypoxic hypercapnic respiratory failure on home oxygen presented to the ER with complaints of chest pain that began this morning when she woke up. Pain is located on the left side of her chest and radiates up to her bilateral jaw. Her pain felt very severe and was intermittently getting worse. On coming to the ER, she was given breathing treatments and her pain slowly subsided. She is pain-free now. She did have palpitations prior to presentation. Denies any fever or chills or night sweats. Denies any cough or sputum production. She denies any wheezing or need to use her inhaler at home. Patient has also been noted to have pedal edema since yesterday. She denies any orthopnea or PND. Past Med Surg Social Fam HX - Past Medical History Attestation: Yes The following information was validated with the patient. Source: patient Medical history: CHF, COPD, GERD, hyperlipidemia, hypertension, other Psychiatric history: anxiety - Past Surgical History Surgical History: appendectomy, other - Social History Smoking Status: Former smoker Smokeless Tobacco Status: No Alcohol use: none Drug use: none - Family History Mother Living Status: Hx Family Cancer: Yes (brain) Father Living Status: Internal Medicine - H&P: Meds Guaifenesin [Mucinex] 600 mg PO BID PRN 02/04/16 [History] Roflumilast [Daliresp] 500 mcg PO DAILY 02/04/16 [History] TraZODone 25 mg PO HS 02/04/16 [History] Alendronate Sodium [Fosamax] 70 mg PO TH 02/05/16 [History] Calcium/Magnesium/Vit D3 [Calcium 500 mg Tablet] 1 tab PO BID 02/05/16 [History] Oxygen 4 l NS AD 02/05/16 [History] Albuterol Neb [Proventil Neb] 2.5 mg IH Q2H PRN #0 inhsol 03/14/16 [Rx] Atorvastatin [Lipitor] 20 mg PO DAILY tablet 03/14/16 [Rx] Buspirone HCl [Buspar] 15 mg PO BID tablet 03/14/16 [Rx] FLUoxetine HCl [Prozac] 20 mg PO DAILY udc 03/14/16 [Rx] Ferrous Sulfate 325 mg PO DAILY tablet 03/14/16 [Rx] Montelukast [Singulair] 10 mg PO HS tablet 03/14/16 [Rx] Theophylline Anhydrous [Phong-24] 300 mg PO DAILY cap.er.24h 03/14/16 [Rx] Albuterol Sulfate [Proair Hfa] 2 puff IH Q4-6H PRN 07/15/16 [History] Aspirin [Lo-Dose Aspirin EC] 81 mg PO DAILY 07/15/16 [History] Cyclobenzaprine [Flexeril] 10 mg PO HS 07/15/16 [History] Loratadine [Allergy Relief] 10 mg PO DAILY 07/15/16 [History] Omeprazole [PriLOSEC] 20 mg PO DAILY 07/15/16 [History] Ipratropium/Albuterol Neb [Duoneb] 3 ml IH [id number] inhsol 07/21/16 [Rx] Dextran 70/Hypromellose [Artificial Tears Eye Drops] 1 drop OP DAILY PRN [History] Fluticasone Propionate Nasal [Flonase] 1 spray NS DAILY 10/17/16 [History] Fluticasone/Salmeterol [Advair 250-50 Diskus] 1 puff IH BID 10/17/16 [History] Fluticasone/Vilanterol [Breo Ellipta 100-25 Mcg INH] 1 puff IH DAILY 10/17/16 [ History] LORazepam [Ativan] 0.5 mg PO BID PRN 10/17/16 [History] Allergies No Known Allergies Allergy (Verified 02/04/16 19:19) All Systems PM: A 10-system review of systems was performed and is negative for pertinent findings except as documented above in the HPI. - Constitutional Constitutional: no chills, no fever(s), no night sweats - EENT Eyes: no change in vision, no discharge, no pain, no photophobia Ears: no ear discharge, no ear pain, no tinnitus Nose, mouth and throat: no dysphagia, no nasal discharge, no neck pain, no sore throat - Cardiovascular Cardiovascular ROS IM: chest pain, no diaphoresis, no dyspnea, no lightheadedness, no palpitations, no syncope - Respiratory Respiratory: no cough, no dyspnea, no wheezing, no excessive phlegm production - Gastrointestinal Gastrointestinal: no abdominal pain, no diarrhea, no hematemesis, no hematochezia, no melena, no nausea, no vomiting - Genitourinary Genitourinary: no change in urinary stream, no dysuria, no flank pain, no hematuria - Musculoskeletal Musculoskeletal ROS IM: no numbness, no tingling - Integumentary Integumentary IM: no rash, no unusual bruising - Neurological Neurological ROS: no confusion, no convulsions, no focal weakness, no numbness, no tingling, no tremor(s) - Hematologic/Lymphatic Hematologic/Lymphatic: no easy bruising - Constitutional Vitals: Temp Pulse Resp BP Pulse Ox 97.9 F 107 15 126/65 99 10/17/16 12:41 10/17/16 12:41 10/17/16 12:41 10/17/16 12:41 10/17/16 12:41 General appearance: Present: cooperative, mild distress, A&O X 3, answers questions appropriately - Eye Eye exam: Present: EOMI, PERRL, conjuntiva pink, sclera anicteric - Neck Neck exam general surgery: Present: supple, trachea midline. Absent: lymphadenopathy - Respiratory Respiratory exam: Present: prolonged expiratory phase. Absent: accessory muscle use, rales, rhonchi, wheezes Additional comments: Decreased air entry bilaterally - Extremities Exam Extremities exam: Present: warm, radial pulses palpable and symetrical. Absent : calf tenderness, cyanotic, pedal edema - Neurological Exam Neurological exam: Present: CN II-XII intact, oriented X3, no focal deficits. Absent: facial droop, speech deficit - Skin Skin exam: Present: dry, intact Internal Med - H&P Results - Labs CBC & Chem 7: 10/17/16 10:49 10/17/16 10:49 - EKG Data -: EKG Interpreted by Myself EKG shows normal: sinus rhythm Rate: tachycardia - EKG Data Prior EKG available for review: yes EKG comments: 10/17/16 13:13 With PVCs - Impressions Impressions Chest X-Ray 10/17/16 10:32 IMPRESSION: 1. Emphysema. 2. No focal lung infiltrate. D/ / 10/17/2016 11:17:40 Damien Preciado MD / bcarter Interpreting Provider: Damien Preciado MD - Attending Attestation This document has been at least partially created by [employer] recognition technology by Dr. Harris. Errors in grammar, wording or other phrases may exist. If errors are found after the documentation is signed, they will be addressed individually in the addendum section of this document when appropriate.
[2016-10-17] MEDS ORDERED: [UNRECOGNIZED DRUG - OTHER] OP PRN (13:20)
[2016-10-17] MEDS ORDERED: DEXTRAN OP PRN (13:20)
[2016-10-17] MEDS ORDERED: HYPROMELLOSE OP PRN (13:20)
[2016-10-17 14:11] LABS: Hemoglobin A1C 5.4 %
[2016-10-17] MEDS: Ipratropium/Albuterol Neb 3 ML IH SCH ×2 (16:16→22:05)
[2016-10-17 16:23] LABS: ABG Base Excess 27.5 mEq/L (-2.0 to 3.0); ABG HCO3 60.7 mEQ/L (21-27); ABG Oxygen Saturation 99 % (95-98); ABG PH 7.23 pH Units (7.32-7.45); ABG PO2 145 mmHg (85-104); ABG TCO2 65.2 mEq/L (20-26)
[2016-10-17 16:25] LABS: ABG PCO2 145 mmHg (35-45); Blood Gas FiO2 36 %
--- NOTE | 2016-10-17 17:45 | ECHO - Doppler Report ---
Echocardiogram Name: Dior Gaines Date of Study: 10/17/2016 Date: 1950 Ht: 61.0 in Medical Record#: [id number] Age: 66 Wt: 148.0 lb Gender: Female BSA: 1.66 Order #: [id number] Location: [facility] OP Room #: Reading Physician: Adilene Hurtado DO Chaplaincy: Rosenda Davila RVT, [facility] Ordering Physician: Consuelo Harris MD Primary Physician: Reanna Pagan MD Indications: Chest pain Impressions: LVEF 65%. Normal left ventricular size and systolic function. Mild increased LV wall thickness. Normal right ventricular size and function. No significant valvular dysfunction. No pulmonary hypertension. Left Ventricular Wall Motion: Rest Echo Findings All wall segments showed normal motion. Findings: Study Quality * Technically adequate exam. ECG Findings * Normal sinus rhythm. Left Ventricle * LVEF 65%. * Mild left ventricular diastolic dysfunction. * Mild increased LV wall thickness. Left Atrium * Normal left atrial size. Mitral Valve * Normal mitral valve structure. * No mitral stenosis. * Trace mitral regurgitation. Aortic Valve * No aortic regurgitation. * Aortic valve not well visualized. * No aortic stenosis. Tricuspid Valve * Tricuspid valve not well visualized. * No tricuspid regurgitation. * Estimated RA pressure is 3 mmHg. Pulmonic Valve * Pulmonic valve is not well visualized. * No pulmonic stenosis. * No pulmonic regurgitation. Pulmonary Artery * Pulmonary artery not well visualized. Right Ventricle * Normal right ventricular structure and function. Right Atrium * Normal right atrial size. Interatrial Septum * No evidence of PFO by color Doppler. IVC * Normal IVC dimensions and inspiratory collapse. Pericardium * There is no pericardial effusion present. Aorta * Root size is not fully seen. History Hypertension Hypercholesteremia Congestive Heart Failure 02/05/2016 a Previous Echo was performed. Measurements: BP: 126/ 65 2D Normal Values RVIDd: 3.20 cm <2.7 cm IVSd: 1.30 cm 0.6 - 1.0 cm LVIDd: 4.05 cm 3.7 - 5.6 cm LVPWd: 1.30 cm 0.6 - 1.1 cm LVIDs: 3.10 cm 1.5 - 3.6 cm AO: 2.75 cm < 4.0 cm LA: 3.40 cm 2.0 - 4.0cm %FS: 24.40 cm >25 % LVOT Diam: 1.95 cm LA volume: 33 Mitral Valve Dec Time:176.00 msec Peak E:.90 m/sec Peak A:1.21 m/sec E/A Ratio:0.7 Peak E' Lat Sunil:7.8 cm/s Peak E' Med Sunil:7.41 cm/s E/E' Lat Ratio:11.5 E/E' Med Ratio:12.1 Updated by Adilene Hurtado on 10/17/2016 5:40:33 PM electronically signed on 10/17/2016 5:42:21 PM with status of Final Wall Motion [place]: 1=Normal, 2=Hypokinesis, 3=Akinesis, 4=Dyskinesis, 5=Aneurysmal, 6=Hyperkinetic, X=Not Visualized (Blank)=Missing
[2016-10-17] MEDS ORDERED: methylPREDNISolone 125 MG/2 ML VIAL IVP SCH (18:00)
[2016-10-17] MEDS ORDERED: Furosemide 40 MG/4 ML VIAL IVP ONE (18:26)
[2016-10-17] MEDS: *HR* LORazepam 0.5 MG TABLET PO PRN (18:53)
[2016-10-17] MEDS: traZODone 50 MG TABLET PO SCH (22:02)
[2016-10-18 01:29] LABS: Basophils % 0.3 %; Hematocrit 29.9 % (35.3-44.9); Hemoglobin 8.9 g/dL (11.5-15.4); Immature Granulocytes % 1.3 % (0-4); Lymphocytes # 0.5 K/mcL (0.6-4.6); Lymphocytes % 15.5 %; Mean Corpuscular HGB Conc 29.8 g/dL (31.6-35.5); Mean Corpuscular Hemoglobin 28.5 pg (28.0-33.3); Mean Corpuscular Volume 95.8 fL (83.0-100.0); Mean Platelet Volume 8.8 fL (9.4-12.4); Monocytes # 0.4 K/mcL (0.0-1.3); Monocytes % 13.6 %; Neutrophils # 2.2 K/mcL (1.6-8.9); Platelet Count 170 K/mcL (140-400); Red Blood Count 3.12 M/mcL (3.82-4.97); Red Cell Distribution Width 12.2 % (11.5-14.5); Segmented Neutrophils % 69.3 %
[2016-10-18 01:51] LABS: BUN/Creatinine Ratio 27 (6-26); Blood Urea Nitrogen 20 mg/dL (7-20); Calcium 9.1 mg/dL (8.6-10.8); Chloride 83 mEq/L (98-109); Chol/HDL Ratio 2.6 (0-4.9); Cholesterol 149 mg/dL (< 200); Glucose 179 mg/dL (70-99); HDL Cholesterol 58 mg/dL (40-59); LDL Cholesterol,Calculated 74 mg/dL (0-99); Osmolality,Calculated 299 (280-300); Potassium 3.9 mEq/L (3.5-4.5); Sodium 141 mEq/L (136-145); Triglycerides 87 mg/dL (< 150); eGFR For African Americans > 60 (> 60); eGFR For Non-African Americans > 60 (> 60)
[2016-10-18 01:54] LABS: Carbon Dioxide 49 mEq/L (19-29)
[2016-10-18] MEDS: Ipratropium/Albuterol Neb 3 ML IH SCH ×4 (04:29→22:25)
[2016-10-18] MEDS ORDERED: Regadenoson 0.4 MG/5 ML SYRINGE IVP ONE (06:25)
[2016-10-18] MEDS: FLUoxetine 20 MG CAPSULE PO SCH (10:49)
[2016-10-18] MEDS: Loratadine 10 MG TABLET PO SCH (10:49)
[2016-10-18] MEDS: Fluticasone Propionate Nasal 50 MCG/SPRAY BOTTLE NS SCH (10:51)
[2016-10-18] MEDS: Aspirin Enteric Coated 81 MG Tablet PO SCH (10:51)
--- NOTE | 2016-10-18 11:02 | Nuclear Medicine Stress Report ---
Regadenoson Nuclear Stress Name: Dior Gaines Date of Study: 10/18/2016 Date: 1950 Ht: 61.0 in Medical Record#: [id number] Age: 66 Wt: 159.0 lb Gender: Female Order #: [id number] Location: [facility] Room: [facility] Supervising Provider: Angela Lovelace CNP Reading Physician: Jared Bae DO, FAC, [facility] Ordering Physician: Mary Kay Reynoso CNP Primary Care Physician: Reanna Pagan MD Stress Technologist: Jazmine Castañeda RRT Field Services Director: Chino Teran Indications: Chest Pain Impression: Pharmacologic stress ECG is negative for ischemia at level of heart rate achieved. Gated EF = 54%. Small sized, mild intensity, fixed apical inferior defect. Wall motion is normal. Findings are consistent with artifact. Perfusion imaging was negative for ischemia or infarct. History: Hypertension Hypercholesteremia Stress Test Summary: Stress Test Type: Pharmacologic Regadenoson 0.4mg/5ml given IV Baseline Information: Initial Heart Rate: 91 Blood Pressure: 140/76 Stress Information: Test Terminated Due to (primary): Chest pain Maximum Blood Pressure: 118/60 Maximum Heart Rate: 115 Percent Maximum Heart Rate Achieved: 79 Double Product: [id number] METS Reached: 1 Symptoms: Shortness of breath Nuclear Summary: SPECT myocardial perfusion imaging using Tc99m Sestamibi given intravenously was performed at rest and following cardiac stress testing. The resting images were obtained following initial dose of 10.9 mCi. Following stress an additional dose of 34.1 mCi was given at peak exercise or 30 seconds post regadenoson infusion. Medication Given: Time Medication Dose Units Route Findings: Stress Note * Resting ECG demonstrated normal sinus rhythm. * Occasional PACs noted prior to exam beginning. * Pharmacologic stress ECG is negative for ischemia at level of heart rate achieved. * Occasional PACs noted during stress. * Patient had no chest pain during stress. * Normal hemodynamic responses to pharmacologic stress. Study Quality * Study quality is average. Gated EF % * Gated EF = 54%. Left Ventricle * The left ventricle is not dilated. LVEDV = 116 mL. * Normal wall motion. Inferior Perfusion Rest * The apical inferior segment shows a mild reduction in perfusion. Inferior Perfusion Stress * The apical inferior segment shows a mild reduction in perfusion. TID * No evidence of transient ischemic dilatation. TID ratio * TID ratio = 1.07. Lung Uptake * There is no evidence of increase lung uptake. Updated by Jared Bae DO, RADHA, IFEANYI CABELLO on 10/18/2016 10:57:05 AM electronically signed on 10/18/2016 10:58:02 AM with status of Final
[2016-10-18 12:20] LABS: Acinetobacter baumannii by PCR Not Detected (Not Detect); Candida albicans by PCR Not Detected (Not Detect); Candida glabrata by PCR Not Detected (Not Detect); Candida krusei by PCR Not Detected (Not Detect); Candida parapsilosis by PCR Not Detected (Not Detect); Candida tropicalis by PCR Not Detected (Not Detect); Enterococcus by PCR Not Detected (Not Detect); Escherichia coli by PCR Not Detected (Not Detect); Klebsiella oxytoca by PCR Not Detected (Not Detect); Klebsiella pneumoniae by PCR Not Detected (Not Detect); Pseudomonas aeruginosa by PCR ***DETECTED*** (Not Detect); Serratia marcescens by PCR Not Detected (Not Detect); Staphylococcus aureus by PCR Not Detected (Not Detect); Streptococcus agalactiae(B)PCR Not Detected (Not Detect); Streptococcus by PCR Not Detected (Not Detect); Streptococcus pneumoniae PCR Not Detected (Not Detect); Streptococcus pyogenes (A) PCR Not Detected (Not Detect); blaKPC Carbapenem-Resist Gene Not Detected (Not Detect)
[2016-10-18] MEDS: Levofloxacin 750 MG/150 ML 750 MG/150 ML BAG IVPB SCH (15:06)
[2016-10-18] MEDS ORDERED: Meropenem 1,000 MG in 0.9 % Sodium Chloride Mini Bag 100 ML IVPB SCH (16:00)
--- NOTE | 2016-10-18 17:19 | Internal Med Progress Note ---
Date of Encounter: 10/18/16 Time of Encounter: 14:45 - Assessment and plan (1) Chest pain Current Visit: Yes Status: Acute Assessment and plan: Chest x-ray showed emphysema and no focal lung infiltrate Pharmacologic stress test done today was negative for ischemia at level of heart rate achieved. Gated EF is 54%. Patient currently denies chest pain. She denies shortness of breath, nausea, vomiting. Troponins were negative 3. EKG was normal sinus rhythm. Continue telemetry Continue to monitor patient Monitor labs Oxygen as needed to maintain saturations greater than 92% Qualifiers: Chest pain type: unspecified Qualified Code(s): R07.9 - Chest pain, unspecified (2) Bacteremia due to Gram-negative bacteria Current Visit: Yes Status: Acute Assessment and plan: Blood culture positive for gram-negative negative bob. Identified as Pseudomonas aeruginosa. No known source at this time. Patient does not have any permanents CVC or port. Zosyn 3.375 g IV every 8 hours Levaquin 750 mg IV daily. Sensitivity is pending. (3) Chronic anemia Current Visit: Yes Status: Chronic Assessment and plan: Hemoglobin is 8.9 today. Just slightly below baseline which is around 9-10. Chronic. Continue to monitor Labs in the morning Transfuse hemoglobin less than 7 (4) COPD (chronic obstructive pulmonary disease) Current Visit: No Status: Acute Assessment and plan: Patient has history of noncompliance with BiPAP at home and in the hospital. Her ABG from yesterday shows respiratory acidosis. She says that she does not like to wear the mask and does not tolerate it. She has however agreed to wear it tonight throughout the night. She is alert and oriented. Her lungs are clear and diminished throughout. She is not appear to be in respiratory distress and speaks easily. She is requiring supplemental oxygen to maintain her saturations greater than 92% and we will continue that. Qualifiers: COPD type: COPD with acute exacerbation Qualified Code(s): J44.1 - Chronic obstructive pulmonary disease with (acute) exacerbation (5) Acute on chronic respiratory failure with hypercapnia Current Visit: No Status: Acute Assessment and plan: Plan as above. (6) SIRS (systemic inflammatory response syndrome) Current Visit: Yes Status: Acute Assessment and plan: Patient meets SIRS criteria based on respirations greater than 20 and leukopenia with a white count less than 4000 at 3.2. Continue to monitor patient Monitor vital signs Continue IV fluids Patient is receiving IV antibiotics Patient is receiving supplemental oxygen Patient will wear BiPAP tonight. - Time Spent With Patient less than 15 minutes - Constitutional Vitals: Temp Pulse Resp BP Pulse Ox 97.8 F 89 21 106/64 98 10/18/16 14:55 10/18/16 14:55 10/18/16 15:36 10/18/16 14:55 10/18/16 15:36 General appearance: Present: cooperative, mild distress, A&O X 3, pleasant, answers questions appropriately - Head Head exam: Present: normal inspection - Eye Eye exam: Present: normal appearance, conjuntiva pink. Absent: nystagmus - ENT ENT exam: Present: mucous membranes moist, normal exam - Neck Neck exam general surgery: Present: normal inspection. Absent: lymphadenopathy , tenderness - Respiratory Respiratory exam: Present: decreased breath sounds. Absent: rales, respiratory distress, wheezes - Cardiovascular Cardiovascular exam: Present: RRR, +S1, +S2. Absent: clicks, diastolic murmur, gallop, systolic murmur - GI/Abdominal GI/Abdominal exam: Present: normal bowel sounds, soft. Absent: hepatomegaly, tenderness - Extremities Exam Extremities exam: Present: normal capillary refill, normal inspection, warm. Absent: tenderness - Neurological Exam Neurological exam: Present: alert, no focal deficits. Absent: facial droop, speech deficit Internal Medicine: Result - Labs CBC & Chem 7: 10/18/16 01:22 10/18/16 01:22 Labs: Short CBC 10/18/16 Range/Units 01:22 WBC 3.2 L (4.3-11.1) K/mcL Hgb 8.9 L (11.5-15.4) g/dL Hct 29.9 L (35.3-44.9) % Plt Count 170 (140-400) K/mcL Neutrophils # 2.2 (1.6-8.9) K/mcL BMP 10/18/16 01:22 Sodium 141 Potassium 3.9 Chloride 83 L Carbon Dioxide 49 H* BUN 20 Creatinine 0.74 Glucose 179 H Calcium 9.1 Cardiac Enzymes 10/17/16 10/18/16 Range/Units 17:51 01:22 Troponin I 0.02 0.01 (0-0.03) ng/mL - ABG Interpretation ABG results: ABG ABG pH 7.23 pH Units (7.32-7.45) L 10/17/16 16:13 ABG pCO2 145 mmHg (35-45) H* D 10/17/16 16:13 ABG pO2 145 mmHg (85-104) H 10/17/16 16:13 ABG O2 Saturation 99 % (95-98) H 10/17/16 16:13 PT/INR, D-dimer PT 10.8 Seconds (9.4-12.1) 10/17/16 10:49 Consult Discharge Plan - Plan Referrals: Reanna Pagan MD [Primary Care Provider] - 10/23/16 10:45 am
[2016-10-18] MEDS: Piperacillin/Tazobactam 3.375 GM in D5% in Water (Mini-Bag+) 100 ML IVPB SCH ×2 (17:40→23:32)
--- NOTE | 2016-10-18 18:12 | Electrocardiograph Report ---
[place] [id number] Test Date: 2016-10-17 Pat Name: Dior Gaines Department: 102 Room: 3B43 Gender: F Mission Coordinator: Msc : 1950 Requested By: Coy Nugent Order Number: [id number] Reading MD: Jesus Ledezma MD Measurements Intervals [place] Rate: 104 P: 80 NE: 142 QRS: 43 QRSD: 79 T: 116 QT: 317 QTc: 378 Interpretive Statements SINUS TACHYCARDIA WITH OCCASIONAL SUPRAVENTRICULAR PREMATURE COMPLEXES BASELINE ARTIFACT Electronically Signed On 10-18-2016 18:10:32 EDT by Jesus Ledezma MD
[2016-10-18] MEDS: Acetaminophen 325 MG TABLET PO PRN (18:20)
[2016-10-18] MEDS: traZODone 50 MG TABLET PO SCH (21:28)
[2016-10-18] MEDS: *HR* Heparin 5,000 UNIT/ML VIAL SQ SCH (21:29)
[2016-10-19] MEDS: Acetaminophen 325 MG TABLET PO PRN ×2 (01:30→08:47)
[2016-10-19] MEDS: *HR* Heparin 5,000 UNIT/ML VIAL SQ SCH ×3 (03:24→22:00)
[2016-10-19] MEDS: Ipratropium/Albuterol Neb 3 ML IH SCH ×4 (04:10→23:22)
[2016-10-19 06:09] LABS: ABG Base Excess 38.1 mEq/L (-2.0 to 3.0); ABG HCO3 68.1 mEQ/L (21-27); ABG Oxygen Saturation 99 % (95-98); ABG PH 7.42 pH Units (7.32-7.45); ABG PO2 133 mmHg (85-104); ABG TCO2 71.3 mEq/L (20-26)
[2016-10-19 06:11] LABS: ABG PCO2 105 mmHg (35-45); Blood Gas FiO2 36 %
[2016-10-19 07:38] LABS: BUN/Creatinine Ratio 18 (6-26); Blood Urea Nitrogen 12 mg/dL (7-20); Calcium 8.9 mg/dL (8.6-10.8); Chloride 86 mEq/L (98-109); Glucose 93 mg/dL (70-99); Osmolality,Calculated 299 (280-300); Potassium 3.2 mEq/L (3.5-4.5); Sodium 145 mEq/L (136-145); eGFR For African Americans > 60 (> 60); eGFR For Non-African Americans > 60 (> 60)
[2016-10-19 07:43] LABS: Basophils % 0.4 %; Monocytes % 17.4 %
[2016-10-19 07:45] LABS: Eosinophils # 0.1 K/mcL (0.0-0.6); Hematocrit 29.7 % (35.3-44.9); Hemoglobin 8.9 g/dL (11.5-15.4); Immature Granulocytes % 0.8 % (0-4); Lymphocytes # 0.9 K/mcL (0.6-4.6); Mean Corpuscular Hemoglobin 29.4 pg (28.0-33.3); Mean Platelet Volume 9.2 fL (9.4-12.4); Monocytes # 0.8 K/mcL (0.0-1.3); Neutrophils # 2.8 K/mcL (1.6-8.9); Platelet Count 176 K/mcL (140-400); Red Blood Count 3.03 M/mcL (3.82-4.97); Red Cell Distribution Width 12.3 % (11.5-14.5); Segmented Neutrophils % 60.4 %
[2016-10-19 07:46] LABS: Carbon Dioxide 48 mEq/L (19-29)
[2016-10-19 08:14] LABS: Anisocytosis 1+ (Not Present); Hypochromasia Present (Not Present); Platelet Estimate Normal (Normal)
[2016-10-19] MEDS: FLUoxetine 20 MG CAPSULE PO SCH (08:25)
[2016-10-19] MEDS: Aspirin Enteric Coated 81 MG Tablet PO SCH (08:25)
[2016-10-19] MEDS: Piperacillin/Tazobactam 3.375 GM in D5% in Water (Mini-Bag+) 100 ML IVPB SCH ×3 (08:26→23:37)
[2016-10-19] MEDS: Loratadine 10 MG TABLET PO SCH (08:26)
[2016-10-19] MEDS: Fluticasone Propionate Nasal 50 MCG/SPRAY BOTTLE NS SCH (08:27)
[2016-10-19] MEDS: Levofloxacin 750 MG/150 ML 750 MG/150 ML BAG IVPB SCH (13:31)
--- NOTE | 2016-10-19 19:04 | Internal Med Progress Note ---
Date of Encounter: 10/19/16 Time of Encounter: 09:00 - Assessment and plan (1) Chest pain Current Visit: Yes Status: Acute Assessment and plan: Chest x-ray showed emphysema and no focal lung infiltrate Pharmacologic stress test done today was negative for ischemia at level of heart rate achieved. Gated EF is 54%. Patient currently denies chest pain. She denies shortness of breath, nausea, vomiting. Troponins were negative 3. EKG was normal sinus rhythm. Stress test are negative. Echo unremarkable, BNP negative. Continue telemetry Continue to monitor patient Monitor labs Oxygen as needed to maintain saturations arround 92% Qualifiers: Chest pain type: unspecified Qualified Code(s): R07.9 - Chest pain, unspecified (2) COPD (chronic obstructive pulmonary disease) Current Visit: No Status: Acute Assessment and plan: Patient has history of noncompliance with BiPAP at home and in the hospital. Her ABG from yesterday shows respiratory acidosis. She says that she does not like to wear the mask and does not tolerate it. She has however agreed to wear it tonight throughout the night. She is alert and oriented. Her lungs are clear and diminished throughout. She is not appear to be in respiratory distress and speaks easily. She is requiring supplemental oxygen to maintain her saturations greater than 92% and we will continue that. No signs of exacerbation. Patient old CHART reviewed. Patient has a chronic hypercapnia and she tolerated high CO2 level. Qualifiers: COPD type: COPD with acute exacerbation Qualified Code(s): J44.1 - Chronic obstructive pulmonary disease with (acute) exacerbation (3) Chronic respiratory failure with hypoxia and hypercapnia Current Visit: Yes Status: Chronic Assessment and plan: Due to COPD. Continue supportive treatment. (4) Bacteremia due to Gram-negative bacteria Current Visit: Yes Status: Acute Assessment and plan: Blood culture positive for gram-negative negative bob. Identified as Pseudomonas aeruginosa. No known source at this time. Patient does not have any permanents CVC or port. Zosyn 3.375 g IV every 8 hours Levaquin 750 mg IV daily. Sensitivity is pending. Check UA. (5) DVT prophylaxis Current Visit: Yes Status: Acute Assessment and plan: Heparin subcutaneously - Time Spent With Patient 25 - 35 minutes - Subjective Interval history: Patient is a 66-year-old female admitted for chest pain. Her past medical history is significant for COPD with chronic CO2 retention, CHF, hyperlipidemia , hypertension. She was seen and examined. Denies chest pain or shortness of breath now. Vitals are stable. No fever. White count is within normal limit. However, patient has one sets of blood culture positive, preliminary result shows Pseudomonas, will repeat a blood culture and continue antibiotic treatment. - Constitutional Vitals: Temp Pulse Resp BP Pulse Ox 98.1 F 71 18 105/59 100 10/19/16 18:53 10/19/16 18:53 10/19/16 18:53 10/19/16 18:53 10/19/16 18:53 General appearance: Present: cooperative, mild distress, A&O X 3, pleasant, answers questions appropriately - Head Head exam: Present: atraumatic, normocephalic - Eye Eye exam: Present: PERRL, conjuntiva pink, sclera anicteric Pupils: Present: PERRL - Neck Neck exam general surgery: Present: supple, trachea midline. Absent: lymphadenopathy - Respiratory Respiratory exam: Present: CTAB. Absent: accessory muscle use, rales, rhonchi, wheezes - Cardiovascular Cardiovascular exam: Present: RRR, +S1, +S2. Absent: diastolic murmur, gallop, rubs, systolic murmur - GI/Abdominal GI/Abdominal exam: Present: normal bowel sounds, soft, no peritoneal signs. Absent: distended, tenderness - Extremities Exam Extremities exam: Present: warm, radial pulses palpable and symetrical. Absent : calf tenderness, cyanotic, pedal edema - Neurological Exam Neurological exam: Present: CN II-XII intact, oriented X3, no focal deficits. Absent: pronater drift, facial droop, speech deficit - Skin Skin exam: Present: dry, intact Internal Medicine: Result - Labs CBC & Chem 7: 10/19/16 06:57 10/19/16 06:57 Labs: Short CBC 10/19/16 Range/Units 06:57 WBC 4.7 (4.3-11.1) K/mcL Hgb 8.9 L (11.5-15.4) g/dL Hct 29.7 L (35.3-44.9) % Plt Count 176 (140-400) K/mcL Neutrophils # 2.8 (1.6-8.9) K/mcL BMP 10/19/16 06:57 Sodium 145 Potassium 3.2 L Chloride 86 L Carbon Dioxide 48 H* BUN 12 Creatinine 0.65 Glucose 93 Calcium 8.9 - ABG Interpretation ABG results: ABG ABG pH 7.42 pH Units (7.32-7.45) 10/19/16 05:56 ABG pCO2 105 mmHg (35-45) H* 10/19/16 05:56 ABG pO2 133 mmHg (85-104) H 10/19/16 05:56 ABG O2 Saturation 99 % (95-98) H 10/19/16 05:56 PT/INR, D-dimer PT 10.8 Seconds (9.4-12.1) 10/17/16 10:49 Consult Discharge Plan - Plan Referrals: Reanna Pagan MD [Primary Care Provider] - 10/23/16 10:45 am
[2016-10-19] MEDS: traZODone 50 MG TABLET PO SCH (22:00)
[2016-10-19] MEDS: Docusate Oral Soln 100 MG/10 ML UDC PO SCH (22:00)
[2016-10-20] MEDS: Ipratropium/Albuterol Neb 3 ML IH SCH ×4 (04:50→22:37)
[2016-10-20] MEDS: *HR* Heparin 5,000 UNIT/ML VIAL SQ SCH ×3 (06:06→20:47)
[2016-10-20 06:15] LABS: Basophils % 0.2 %
[2016-10-20 06:16] LABS: Hematocrit 31.8 % (35.3-44.9); Hemoglobin 9.4 g/dL (11.5-15.4); Mean Corpuscular HGB Conc 29.6 g/dL (31.6-35.5); Mean Corpuscular Volume 98.1 fL (83.0-100.0); Mean Platelet Volume 9.6 fL (9.4-12.4); Platelet Count 211 K/mcL (140-400); Red Blood Count 3.24 M/mcL (3.82-4.97); Red Cell Distribution Width 12.2 % (11.5-14.5); Segmented Neutrophils % 59.8 %
[2016-10-20 06:17] LABS: Eosinophils # 0.2 K/mcL (0.0-0.6); Eosinophils % 3.5 %; Immature Granulocytes % 0.7 % (0-4); Lymphocytes # 0.8 K/mcL (0.6-4.6); Lymphocytes % 18.9 %; Monocytes # 0.7 K/mcL (0.0-1.3); Monocytes % 16.9 %; Neutrophils # 2.6 K/mcL (1.6-8.9)
[2016-10-20 06:34] LABS: BUN/Creatinine Ratio 15 (6-26); Blood Urea Nitrogen 10 mg/dL (7-20); Calcium 9.3 mg/dL (8.6-10.8); Chloride 89 mEq/L (98-109); Glucose 101 mg/dL (70-99); Osmolality,Calculated 299 (280-300); Sodium 145 mEq/L (136-145); eGFR For African Americans > 60 (> 60); eGFR For Non-African Americans > 60 (> 60)
[2016-10-20 06:44] LABS: Carbon Dioxide 49 mEq/L (19-29)
[2016-10-20 06:50] LABS: Hypochromasia Present (Not Present); Platelet Estimate Normal (Normal)
[2016-10-20] MEDS ORDERED: 0.9 % Sodium Chloride 1,000 ML IVC SCH (08:15)
[2016-10-20] MEDS: FLUoxetine 20 MG CAPSULE PO SCH (08:28)
[2016-10-20] MEDS: Aspirin Enteric Coated 81 MG Tablet PO SCH (08:28)
[2016-10-20] MEDS: Loratadine 10 MG TABLET PO SCH (08:28)
[2016-10-20] MEDS: Fluticasone Propionate Nasal 50 MCG/SPRAY BOTTLE NS SCH (08:38)
[2016-10-20] MEDS: Acetaminophen 325 MG TABLET PO PRN (10:24)
[2016-10-20] MEDS: Levofloxacin 750 MG/150 ML 750 MG/150 ML BAG IVPB SCH (14:00)
--- NOTE | 2016-10-20 19:31 | Internal Med Progress Note ---
Date of Encounter: 10/20/16 Time of Encounter: 10:00 - Assessment and plan (1) Chest pain Current Visit: Yes Status: Acute Assessment and plan: Chest x-ray showed emphysema and no focal lung infiltrate Pharmacologic stress test done today was negative for ischemia at level of heart rate achieved. Gated EF is 54%. Patient currently denies chest pain. She denies shortness of breath, nausea, vomiting. Troponins were negative 3. EKG was normal sinus rhythm. Stress test are negative. Echo unremarkable, BNP negative. CTA negative. Continue telemetry Continue to monitor patient Monitor labs Oxygen as needed to maintain saturations arround 92% Qualifiers: Chest pain type: unspecified Qualified Code(s): R07.9 - Chest pain, unspecified (2) COPD (chronic obstructive pulmonary disease) Current Visit: No Status: Acute Assessment and plan: Patient has history of noncompliance with BiPAP at home and in the hospital. Her ABG from yesterday shows respiratory acidosis. She says that she does not like to wear the mask and does not tolerate it. She has however agreed to wear it tonight throughout the night. She is alert and oriented. Her lungs are clear and diminished throughout. She is not appear to be in respiratory distress and speaks easily. She is requiring supplemental oxygen to maintain her saturations greater than 92% and we will continue that. No signs of exacerbation. Patient old CHART reviewed. Patient has a chronic hypercapnia and she tolerated high CO2 level. Qualifiers: COPD type: COPD with acute exacerbation Qualified Code(s): J44.1 - Chronic obstructive pulmonary disease with (acute) exacerbation (3) Chronic respiratory failure with hypoxia and hypercapnia Current Visit: Yes Status: Chronic Assessment and plan: Due to COPD. Continue supportive treatment. (4) Bacteremia due to Gram-negative bacteria Current Visit: Yes Status: Acute Assessment and plan: Blood culture positive for gram-negative negative bob. Identified as Pseudomonas aeruginosa. No known source at this time. Patient does not have any permanents CVC or port. Levaquin 750 mg IV daily. Sensitivity to Levaquin. (5) DVT prophylaxis Current Visit: Yes Status: Acute Assessment and plan: Heparin subcutaneously - Time Spent With Patient 25 - 35 minutes - Subjective Interval history: Patient is a 66-year-old female admitted for chest pain. Her past medical history is significant for COPD with chronic CO2 retention, CHF, hyperlipidemia , hypertension. She was seen and examined. Denies chest pain or shortness of breath now. Vitals are stable. No fever. White count is within normal limit. However, patient has one sets of blood culture positive, preliminary result shows Pseudomonas, sensitive to Levaquin, which patient is on now. Patient has a hypercapnia, we will place BiPAP qualification test during night. Patient has a positive d-dimer. CTA and a bilateral leg US are Done, negative for PE and DVT. - Constitutional Vitals: Temp Pulse Resp BP Pulse Ox 97.9 F 107 15 113/72 100 10/20/16 15:18 10/20/16 15:18 10/20/16 16:06 10/20/16 15:18 10/20/16 16:06 General appearance: Present: cooperative, mild distress, A&O X 3, pleasant, answers questions appropriately - Head Head exam: Present: atraumatic, normocephalic - Eye Eye exam: Present: PERRL, conjuntiva pink, sclera anicteric Pupils: Present: PERRL - Neck Neck exam general surgery: Present: supple, trachea midline. Absent: lymphadenopathy - Respiratory Respiratory exam: Present: CTAB. Absent: accessory muscle use, rales, rhonchi, wheezes - Cardiovascular Cardiovascular exam: Present: RRR, +S1, +S2. Absent: diastolic murmur, gallop, rubs, systolic murmur - GI/Abdominal GI/Abdominal exam: Present: normal bowel sounds, soft, no peritoneal signs. Absent: distended, tenderness - Extremities Exam Extremities exam: Present: warm, radial pulses palpable and symetrical. Absent : calf tenderness, cyanotic, pedal edema - Neurological Exam Neurological exam: Present: CN II-XII intact, oriented X3, no focal deficits. Absent: pronater drift, facial droop, speech deficit - Skin Skin exam: Present: dry, intact Internal Medicine: Result - Labs CBC & Chem 7: 10/20/16 05:13 10/20/16 05:13 Labs: Short CBC 10/20/16 Range/Units 05:13 WBC 4.3 (4.3-11.1) K/mcL Hgb 9.4 L (11.5-15.4) g/dL Hct 31.8 L (35.3-44.9) % Plt Count 211 (140-400) K/mcL Neutrophils # 2.6 (1.6-8.9) K/mcL BMP 10/20/16 05:13 Sodium 145 Potassium 4.0 Chloride 89 L Carbon Dioxide 49 H* BUN 10 Creatinine 0.66 Glucose 101 H Calcium 9.3 - ABG Interpretation ABG results: ABG ABG pH 7.42 pH Units (7.32-7.45) 10/19/16 05:56 ABG pCO2 105 mmHg (35-45) H* 10/19/16 05:56 ABG pO2 133 mmHg (85-104) H 10/19/16 05:56 ABG O2 Saturation 99 % (95-98) H 10/19/16 05:56 PT/INR, D-dimer PT 10.8 Seconds (9.4-12.1) 10/17/16 10:49 D-Dimer 785 ng/mLFEU (0-500) H 10/20/16 05:13 - Impressions Impressions Chest CTA 10/20/16 08:09 IMPRESSION: No evidence of pulmonary embolism or acute pulmonary abnormality. Severe emphysema. D/ / 10/20/2016 09:35:24 Joe Simon MD / tamar Interpreting Provider: Joe Simon MD Consult Discharge Plan - Plan Referrals: Reanna Pagan MD [Primary Care Provider] - 10/23/16 10:45 am
--- NOTE | 2016-10-20 20:29 | Venous Imaging Report ---
LE Venous Duplex Patient Name:Dior Gaines Order Number:[id number] Procedure Date:10/20/2016 Date:1950ge:66 yrs Gender:Female Location:[facility] Room #: 3B43 Administrative Law Judge:Aryan Parada RN Referring MD:Maria Eugenia Rowan MD senior it architect:Reanna Pagan MD Reading MD:Edwardo Singh MD Primary Indications:D-Dimer Positive Secondary Indications: Risk Factors Yes/No Smoking Current No Anticoagulants No Previous Vascular Surgery No Hx of DVT No Hx of Chemotherapy No Trauma to Veins No Recent Surgery No Hx of Superficial Phlebitis No Michael Filter No Impressions: Normal bilateral lower extremity deep and superficial venous exam. Recommendations: Test completed on 10/20/2016 at 9:30:00 am. Findings Venous Duplex Results: Right: Venous imaging of the lower extremity reveals full patency and normal vessel compressibility of the right distal iliac, right common femoral, right superficial femoral, right popliteal, right posterior tibial, right peroneal, right great saphenous and right lesser saphenous. Doppler signals in the evaluated veins were normal. Left: Venous imaging of the lower extremity reveals full patency and normal vessel compressibility of the left distal iliac, left common femoral, left superficial femoral, left popliteal, left posterior tibial, left peroneal, left great saphenous and left lesser saphenous. Doppler signals in the evaluated veins were normal. Prior Study: No prior study available for comparison. Lower Extremity Venous Duplex Side Vein Compress Spontaneous Flow Augment Diameter (cm) Depth (cm) Right Distal Iliac Normal Yes Phasic Yes Right Common Femoral Normal Yes Phasic Yes Right Superficial Femoral Normal Yes Phasic Yes Right Popliteal Normal Yes Phasic Yes Right Posterior Tibial Normal Yes Phasic Yes Right Peroneal Normal Yes Phasic Yes Right Great Saphenous Normal Yes Phasic Yes Right Lesser Saphenous Normal Yes Phasic Yes Left Distal Iliac Normal Yes Phasic Yes Left Common Femoral Normal Yes Phasic Yes Left Superficial Femoral Normal Yes Phasic Yes Left Popliteal Normal Yes Phasic Yes Left Posterior Tibial Normal Yes Phasic Yes Left Peroneal Normal Yes Phasic Yes Left Great Saphenous Normal Yes Phasic Yes Left Lesser Saphenous Normal Yes Phasic Yes Updated by Edwardo Singh MD on 10/20/2016 8:24:31 PM electronically signed on 10/20/2016 8:24:50 PM with status of Final
[2016-10-20] MEDS: Docusate Oral Soln 100 MG/10 ML UDC PO SCH (20:34)
[2016-10-20] MEDS: *HR* LORazepam 0.5 MG TABLET PO PRN (22:27)
[2016-10-20] MEDS: traZODone 50 MG TABLET PO SCH (22:28)
[2016-10-21 04:29] LABS: Hemoglobin 8.4 g/dL (11.5-15.4); Immature Granulocytes % 0.6 % (0-4); Mean Corpuscular Volume 98.3 fL (83.0-100.0)
[2016-10-21 04:30] LABS: Basophils % 0.4 %; Eosinophils # 0.2 K/mcL (0.0-0.6); Hematocrit 28.8 % (35.3-44.9); Lymphocytes % 19.7 %; Mean Corpuscular HGB Conc 29.2 g/dL (31.6-35.5); Mean Corpuscular Hemoglobin 28.7 pg (28.0-33.3); Mean Platelet Volume 9.6 fL (9.4-12.4); Monocytes # 0.7 K/mcL (0.0-1.3); Monocytes % 15.1 %; Neutrophils # 2.8 K/mcL (1.6-8.9); Platelet Count 212 K/mcL (140-400); Red Blood Count 2.93 M/mcL (3.82-4.97); Red Cell Distribution Width 12.3 % (11.5-14.5); Segmented Neutrophils % 59.2 %
[2016-10-21] MEDS: Ipratropium/Albuterol Neb 3 ML IH SCH ×4 (04:35→22:48)
[2016-10-21 04:42] LABS: BUN/Creatinine Ratio 15 (6-26); Blood Urea Nitrogen 10 mg/dL (7-20); Chloride 91 mEq/L (98-109); Glucose 135 mg/dL (70-99); Osmolality,Calculated 299 (280-300); Potassium 3.9 mEq/L (3.5-4.5); Sodium 144 mEq/L (136-145); eGFR For African Americans > 60 (> 60); eGFR For Non-African Americans > 60 (> 60)
[2016-10-21 04:56] LABS: Carbon Dioxide 48 mEq/L (19-29)
[2016-10-21] MEDS: *HR* Heparin 5,000 UNIT/ML VIAL SQ SCH ×3 (06:44→21:38)
[2016-10-21] MEDS: Fluticasone Propionate Nasal 50 MCG/SPRAY BOTTLE NS SCH (09:07)
[2016-10-21] MEDS: FLUoxetine 20 MG CAPSULE PO SCH (09:07)
[2016-10-21] MEDS: Loratadine 10 MG TABLET PO SCH (09:08)
[2016-10-21] MEDS: Aspirin Enteric Coated 81 MG Tablet PO SCH (09:08)
[2016-10-21] MEDS: Levofloxacin 750 MG/150 ML 750 MG/150 ML BAG IVPB SCH (14:31)
--- NOTE | 2016-10-21 15:34 | Internal Med Progress Note ---
Date of Encounter: 10/21/16 Time of Encounter: 10:00 - Assessment and plan (1) Chest pain Current Visit: Yes Status: Acute Assessment and plan: Chest x-ray showed emphysema and no focal lung infiltrate Pharmacologic stress test done today was negative for ischemia at level of heart rate achieved. Gated EF is 54%. Patient currently denies chest pain. She denies shortness of breath, nausea, vomiting. Troponins were negative 3. EKG was normal sinus rhythm. Stress test are negative. Echo unremarkable, BNP negative. CTA negative. Continue telemetry Continue to monitor patient Monitor labs Oxygen as needed to maintain saturations arround 92% Qualifiers: Chest pain type: unspecified Qualified Code(s): R07.9 - Chest pain, unspecified (2) COPD (chronic obstructive pulmonary disease) Current Visit: No Status: Acute Assessment and plan: Patient has history of noncompliance with BiPAP at home and in the hospital. Her ABG from yesterday shows respiratory acidosis. She says that she does not like to wear the mask and does not tolerate it. She has however agreed to wear it tonight throughout the night. She is alert and oriented. Her lungs are clear and diminished throughout. She is not appear to be in respiratory distress and speaks easily. She is requiring supplemental oxygen to maintain her saturations greater than 92% and we will continue that. No signs of exacerbation. Patient old CHART reviewed. Patient has a chronic hypercapnia and she tolerated high CO2 level. BiPAP overnight test shows pt qualify home BiPAP. Qualifiers: COPD type: COPD with acute exacerbation Qualified Code(s): J44.1 - Chronic obstructive pulmonary disease with (acute) exacerbation (3) Chronic respiratory failure with hypoxia and hypercapnia Current Visit: Yes Status: Chronic Assessment and plan: Due to COPD. Continue supportive treatment. (4) Bacteremia due to Gram-negative bacteria Current Visit: Yes Status: Acute Assessment and plan: Blood culture positive for gram-negative negative bob. Identified as Pseudomonas aeruginosa. No known source at this time. Patient does not have any permanents CVC or port. Levaquin 750 mg IV daily. Sensitivity to Levaquin. Repeat blood culture negative, will give pt prolonged abx treatment for 10-14 days upon discharge. (5) DVT prophylaxis Current Visit: Yes Status: Acute Assessment and plan: Heparin subcutaneously - Time Spent With Patient 25 - 35 minutes - Subjective Interval history: Patient is a 66-year-old female admitted for chest pain. Her past medical history is significant for COPD with chronic CO2 retention, CHF, hyperlipidemia , hypertension. She was seen and examined. Denies chest pain or shortness of breath now. C/o generalized weakness. Vitals are stable. No fever. White count is within normal limit. Pt qualify home BiPAP per overnight BiPAP test. Repeated Blood culture negative. Will consult PT/OT for general weakness.. - Constitutional Vitals: Temp Pulse Resp BP Pulse Ox 98.2 F 95 16 119/52 100 10/21/16 14:59 10/21/16 14:59 10/21/16 14:59 10/21/16 14:59 10/21/16 14:59 General appearance: Present: cooperative, A&O X 3, pleasant, no acute distress, answers questions appropriately - Head Head exam: Present: atraumatic, normocephalic - Eye Eye exam: Present: PERRL, conjuntiva pink, sclera anicteric Pupils: Present: PERRL - Neck Neck exam general surgery: Present: supple, trachea midline. Absent: lymphadenopathy - Respiratory Respiratory exam: Present: CTAB. Absent: accessory muscle use, rales, rhonchi, wheezes - Cardiovascular Cardiovascular exam: Present: RRR, +S1, +S2. Absent: diastolic murmur, gallop, rubs, systolic murmur - GI/Abdominal GI/Abdominal exam: Present: normal bowel sounds, soft, no peritoneal signs. Absent: distended, tenderness - Extremities Exam Extremities exam: Present: warm, radial pulses palpable and symetrical. Absent : calf tenderness, cyanotic, pedal edema - Neurological Exam Neurological exam: Present: CN II-XII intact, oriented X3, no focal deficits. Absent: pronater drift, facial droop, speech deficit - Skin Skin exam: Present: dry, intact Internal Medicine: Result - Labs CBC & Chem 7: 10/21/16 03:37 10/21/16 03:37 Labs: Short CBC 10/21/16 Range/Units 03:37 WBC 4.8 (4.3-11.1) K/mcL Hgb 8.4 L (11.5-15.4) g/dL Hct 28.8 L (35.3-44.9) % Plt Count 212 (140-400) K/mcL Neutrophils # 2.8 (1.6-8.9) K/mcL BMP 10/21/16 03:37 Sodium 144 Potassium 3.9 Chloride 91 L Carbon Dioxide 48 H* BUN 10 Creatinine 0.65 Glucose 135 H Calcium 9.0 - ABG Interpretation ABG results: ABG ABG pH 7.42 pH Units (7.32-7.45) 10/19/16 05:56 ABG pCO2 105 mmHg (35-45) H* 10/19/16 05:56 ABG pO2 133 mmHg (85-104) H 10/19/16 05:56 ABG O2 Saturation 99 % (95-98) H 10/19/16 05:56 PT/INR, D-dimer PT 10.8 Seconds (9.4-12.1) 10/17/16 10:49 D-Dimer 785 ng/mLFEU (0-500) H 10/20/16 05:13 Consult Discharge Plan - Plan Referrals: Reanna Pagan MD [Primary Care Provider] - 10/23/16 10:45 am
[2016-10-21] MEDS: traZODone 50 MG TABLET PO SCH (21:38)
[2016-10-21] MEDS: Docusate Oral Soln 100 MG/10 ML UDC PO SCH (21:38)
[2016-10-21] MEDS: Artificial Tears SOLN 15 ML BOTTLE OP PRN (22:13)
[2016-10-21] MEDS: Acetaminophen 325 MG TABLET PO PRN (22:50)
[2016-10-22 03:11] LABS: Basophils % 0.2 %; Eosinophils # 0.2 K/mcL (0.0-0.6); Eosinophils % 4.8 %; Hematocrit 27.2 % (35.3-44.9); Hemoglobin 7.9 g/dL (11.5-15.4); Immature Granulocytes % 0.7 % (0-4); Lymphocytes % 22.2 %; Mean Corpuscular Hemoglobin 28.6 pg (28.0-33.3); Mean Corpuscular Volume 98.6 fL (83.0-100.0); Mean Platelet Volume 9.1 fL (9.4-12.4); Monocytes # 0.6 K/mcL (0.0-1.3); Monocytes % 13.5 %; Neutrophils # 2.7 K/mcL (1.6-8.9); Platelet Count 206 K/mcL (140-400); Red Blood Count 2.76 M/mcL (3.82-4.97); Red Cell Distribution Width 12.4 % (11.5-14.5); Segmented Neutrophils % 58.6 %
[2016-10-22 03:26] LABS: BUN/Creatinine Ratio 16 (6-26); Blood Urea Nitrogen 10 mg/dL (7-20); Calcium 9.2 mg/dL (8.6-10.8); Chloride 89 mEq/L (98-109); Glucose 105 mg/dL (70-99); Osmolality,Calculated 297 (280-300); Potassium 3.8 mEq/L (3.5-4.5); Sodium 144 mEq/L (136-145); eGFR For African Americans > 60 (> 60); eGFR For Non-African Americans > 60 (> 60)
[2016-10-22 03:28] LABS: Carbon Dioxide 48 mEq/L (19-29)
[2016-10-22] MEDS: Ipratropium/Albuterol Neb 3 ML IH SCH ×4 (05:01→22:17)
[2016-10-22] MEDS: *HR* Heparin 5,000 UNIT/ML VIAL SQ SCH ×4 (05:56→20:42)
[2016-10-22] MEDS: Aspirin Enteric Coated 81 MG Tablet PO SCH (08:24)
[2016-10-22] MEDS: FLUoxetine 20 MG CAPSULE PO SCH (08:25)
[2016-10-22] MEDS: Fluticasone Propionate Nasal 50 MCG/SPRAY BOTTLE NS SCH (08:25)
[2016-10-22] MEDS: Loratadine 10 MG TABLET PO SCH (08:25)
[2016-10-22] MEDS: Levofloxacin 750 MG/150 ML 750 MG/150 ML BAG IVPB SCH (13:09)
--- NOTE | 2016-10-22 17:13 | Internal Med Progress Note ---
Date of Encounter: 10/22/16 Time of Encounter: 09:00 - Assessment and plan (1) Chest pain Current Visit: Yes Status: Acute Assessment and plan: Chest x-ray showed emphysema and no focal lung infiltrate Pharmacologic stress test done today was negative for ischemia at level of heart rate achieved. Gated EF is 54%. Patient currently denies chest pain. She denies shortness of breath, nausea, vomiting. Troponins were negative 3. EKG was normal sinus rhythm. Stress test are negative. Echo unremarkable, BNP negative. CTA negative. Continue telemetry Continue to monitor patient Monitor labs Oxygen as needed to maintain saturations arround 92% Qualifiers: Chest pain type: unspecified Qualified Code(s): R07.9 - Chest pain, unspecified (2) COPD (chronic obstructive pulmonary disease) Current Visit: No Status: Acute Assessment and plan: Patient has history of noncompliance with BiPAP at home and in the hospital. Her ABG from yesterday shows respiratory acidosis. She says that she does not like to wear the mask and does not tolerate it. She has however agreed to wear it tonight throughout the night. She is alert and oriented. Her lungs are clear and diminished throughout. She is not appear to be in respiratory distress and speaks easily. She is requiring supplemental oxygen to maintain her saturations greater than 92% and we will continue that. No signs of exacerbation. Patient old CHART reviewed. Patient has a chronic hypercapnia and she tolerated high CO2 level. BiPAP overnight test shows pt qualify home BiPAP. Qualifiers: COPD type: COPD with acute exacerbation Qualified Code(s): J44.1 - Chronic obstructive pulmonary disease with (acute) exacerbation (3) Chronic respiratory failure with hypoxia and hypercapnia Current Visit: Yes Status: Chronic Assessment and plan: Due to COPD. Continue supportive treatment. (4) Bacteremia due to Gram-negative bacteria Current Visit: Yes Status: Acute Assessment and plan: Blood culture positive for gram-negative negative bob. Identified as Pseudomonas aeruginosa. No known source at this time. Patient does not have any permanents CVC or port. Levaquin 750 mg IV daily. Sensitivity to Levaquin. Repeat blood culture negative, will give pt prolonged abx treatment for 10-14 days upon discharge. (5) DVT prophylaxis Current Visit: Yes Status: Acute Assessment and plan: Heparin subcutaneously (6) Anemia Current Visit: Yes Status: Acute Assessment and plan: Chronic anemia with MCV 98.6. Anemia workup ordered. Qualifiers: Anemia type: unspecified type Qualified Code(s): D64.9 - Anemia, unspecified - Time Spent With Patient 25 - 35 minutes - Subjective Interval history: Patient is a 66-year-old female admitted for chest pain. Her past medical history is significant for COPD with chronic CO2 retention, CHF, hyperlipidemia , hypertension. She was seen and examined. Denies chest pain or shortness of breath now. C/o generalized weakness. Vitals are stable. No fever. White count is within normal limit. Patient has slightly hemoglobin dropped, from 8.4 to 7.9, no signs of active bleeding. We will check anemia workup. - Constitutional Vitals: Temp Pulse Resp BP Pulse Ox 98.1 F 100 18 107/57 98 10/22/16 15:08 10/22/16 15:08 10/22/16 16:02 10/22/16 15:08 10/22/16 16:02 General appearance: Present: cooperative, A&O X 3, pleasant, no acute distress, answers questions appropriately - Head Head exam: Present: atraumatic, normocephalic - Eye Eye exam: Present: PERRL, conjuntiva pink, sclera anicteric Pupils: Present: PERRL - Neck Neck exam general surgery: Present: supple, trachea midline. Absent: lymphadenopathy - Respiratory Respiratory exam: Present: CTAB. Absent: accessory muscle use, rales, rhonchi, wheezes - Cardiovascular Cardiovascular exam: Present: RRR, +S1, +S2. Absent: diastolic murmur, gallop, rubs, systolic murmur - GI/Abdominal GI/Abdominal exam: Present: normal bowel sounds, soft, no peritoneal signs. Absent: distended, tenderness - Extremities Exam Extremities exam: Present: warm, radial pulses palpable and symetrical. Absent : calf tenderness, cyanotic, pedal edema - Neurological Exam Neurological exam: Present: CN II-XII intact, oriented X3, no focal deficits. Absent: pronater drift, facial droop, speech deficit - Skin Skin exam: Present: dry, intact Internal Medicine: Result - Labs CBC & Chem 7: 10/22/16 02:58 10/22/16 02:58 Labs: Short CBC 10/22/16 Range/Units 02:58 WBC 4.6 (4.3-11.1) K/mcL Hgb 7.9 L (11.5-15.4) g/dL Hct 27.2 L (35.3-44.9) % Plt Count 206 (140-400) K/mcL Neutrophils # 2.7 (1.6-8.9) K/mcL BMP 10/22/16 02:58 Sodium 144 Potassium 3.8 Chloride 89 L Carbon Dioxide 48 H* BUN 10 Creatinine 0.64 Glucose 105 H Calcium 9.2 - ABG Interpretation ABG results: ABG ABG pH 7.42 pH Units (7.32-7.45) 10/19/16 05:56 ABG pCO2 105 mmHg (35-45) H* 10/19/16 05:56 ABG pO2 133 mmHg (85-104) H 10/19/16 05:56 ABG O2 Saturation 99 % (95-98) H 10/19/16 05:56 PT/INR, D-dimer PT 10.8 Seconds (9.4-12.1) 10/17/16 10:49 D-Dimer 785 ng/mLFEU (0-500) H 10/20/16 05:13 Consult Discharge Plan - Plan Referrals: Reanna Pagan MD [Primary Care Provider] - 10/23/16 10:45 am
[2016-10-22] MEDS: Docusate Oral Soln 100 MG/10 ML UDC PO SCH (20:37)
[2016-10-22] MEDS: traZODone 50 MG TABLET PO SCH (20:37)
[2016-10-22] MEDS: Artificial Tears SOLN 15 ML BOTTLE OP PRN (20:38)
[2016-10-22] MEDS: Acetaminophen 325 MG TABLET PO PRN (20:45)
[2016-10-23] MEDS: *HR* LORazepam 0.5 MG TABLET PO PRN (00:31)
[2016-10-23 04:23] LABS: Basophils % 0.4 %; Hemoglobin 8.4 g/dL (11.5-15.4)
[2016-10-23 04:25] LABS: Eosinophils # 0.2 K/mcL (0.0-0.6); Eosinophils % 4.5 %; Hematocrit 29.1 % (35.3-44.9); Immature Granulocytes % 0.6 % (0-4); Lymphocytes # 0.9 K/mcL (0.6-4.6); Lymphocytes % 19.1 %; Mean Corpuscular HGB Conc 28.9 g/dL (31.6-35.5); Mean Corpuscular Hemoglobin 28.8 pg (28.0-33.3); Mean Corpuscular Volume 99.7 fL (83.0-100.0); Mean Platelet Volume 9.4 fL (9.4-12.4); Monocytes # 0.6 K/mcL (0.0-1.3); Monocytes % 11.9 %; Platelet Count 246 K/mcL (140-400); Red Blood Count 2.92 M/mcL (3.82-4.97); Red Cell Distribution Width 12.4 % (11.5-14.5); Segmented Neutrophils % 63.5 %
[2016-10-23 04:35] LABS: BUN/Creatinine Ratio 19 (6-26); Blood Urea Nitrogen 11 mg/dL (7-20); Calcium 9.8 mg/dL (8.6-10.8); Chloride 87 mEq/L (98-109); Glucose 97 mg/dL (70-99); Osmolality,Calculated 291 (280-300); Potassium 4.1 mEq/L (3.5-4.5); Sodium 141 mEq/L (136-145); eGFR For African Americans > 60 (> 60); eGFR For Non-African Americans > 60 (> 60)
[2016-10-23 04:37] LABS: % Iron Saturation 18 % (15-50); Carbon Dioxide 49 mEq/L (19-29); Iron 45 mcg/dL (50-170); Transferrin 182 mg/dL (180-382)
[2016-10-23] MEDS: Ipratropium/Albuterol Neb 3 ML IH SCH ×2 (04:43→10:36)
[2016-10-23 04:58] LABS: Ferritin 133 ng/ml (5-204)
[2016-10-23 05:04] LABS: Hypochromasia Present (Not Present)
[2016-10-23 05:05] LABS: Platelet Estimate Normal (Normal)
[2016-10-23 05:20] LABS: Folate 12.8 ng/mL (7.0-31.4)
[2016-10-23] MEDS: *HR* Heparin 5,000 UNIT/ML VIAL SQ SCH (06:12)
[2016-10-23] MEDS: Acetaminophen 325 MG TABLET PO PRN (06:39)
[2016-10-23] MEDS: Aspirin Enteric Coated 81 MG Tablet PO SCH (09:36)
[2016-10-23] MEDS: FLUoxetine 20 MG CAPSULE PO SCH (09:36)
[2016-10-23] MEDS: Loratadine 10 MG TABLET PO SCH (09:36)
[2016-10-23] MEDS: Fluticasone Propionate Nasal 50 MCG/SPRAY BOTTLE NS SCH (09:36)
--- NOTE | 2016-10-23 10:56 | Discharge Summary ---
Date of Encounter: 10/23/16 Time of Encounter: 10:00 - Discharge Diagnosis (1) Chest pain Priority: Primary Status: Acute Qualifiers: Chest pain type: unspecified Qualified Code(s): R07.9 - Chest pain, unspecified (2) COPD (chronic obstructive pulmonary disease) Priority: Secondary Status: Acute Qualifiers: COPD type: COPD with acute exacerbation Qualified Code(s): J44.1 - Chronic obstructive pulmonary disease with (acute) exacerbation (3) Chronic respiratory failure with hypoxia and hypercapnia Priority: Secondary Status: Chronic (4) Bacteremia due to Gram-negative bacteria Priority: Primary Status: Acute (5) DVT prophylaxis Priority: Secondary Status: Acute (6) Anemia Priority: Secondary Status: Acute Qualifiers: Anemia type: iron deficiency Iron deficiency anemia type: unspecified iron deficiency Qualified Code(s): D50.9 - Iron deficiency anemia, unspecified - Discharge Medications Home Medications: Guaifenesin [Mucinex] 600 mg PO BID PRN 02/04/16 [History] Roflumilast [Daliresp] 500 mcg PO DAILY 02/04/16 [History] TraZODone 25 mg PO HS 02/04/16 [History] Alendronate Sodium [Fosamax] 70 mg PO TH 02/05/16 [History] Calcium/Magnesium/Vit D3 [Calcium 500 mg Tablet] 1 tab PO BID 02/05/16 [History] Oxygen 4 l NS AD 02/05/16 [History] Albuterol Neb [Proventil Neb] 2.5 mg IH Q2H PRN #0 inhsol 03/14/16 [Rx] Atorvastatin [Lipitor] 20 mg PO DAILY tablet 03/14/16 [Rx] Buspirone HCl [Buspar] 15 mg PO BID tablet 03/14/16 [Rx] FLUoxetine HCl [Prozac] 20 mg PO DAILY udc 03/14/16 [Rx] Ferrous Sulfate 325 mg PO DAILY tablet 03/14/16 [Rx] Montelukast [Singulair] 10 mg PO HS tablet 03/14/16 [Rx] Theophylline Anhydrous [Phong-24] 300 mg PO DAILY cap.er.24h 03/14/16 [Rx] Albuterol Sulfate [Proair Hfa] 2 puff IH Q4-6H PRN 07/15/16 [History] Aspirin [Lo-Dose Aspirin EC] 81 mg PO DAILY 07/15/16 [History] Cyclobenzaprine [Flexeril] 10 mg PO HS 07/15/16 [History] Loratadine [Allergy Relief] 10 mg PO DAILY 07/15/16 [History] Omeprazole [PriLOSEC] 20 mg PO DAILY 07/15/16 [History] Ipratropium/Albuterol Neb [Duoneb] 3 ml IH [id number] inhsol 07/21/16 [Rx] Dextran 70/Hypromellose [Artificial Tears Eye Drops] 1 drop OP DAILY PRN [History] Fluticasone Propionate Nasal [Flonase] 1 spray NS DAILY 10/17/16 [History] Fluticasone/Salmeterol [Advair 250-50 Diskus] 1 puff IH BID 10/17/16 [History] Fluticasone/Vilanterol [Breo Ellipta 100-25 Mcg INH] 1 puff IH DAILY 10/17/16 [ History] LORazepam [Ativan] 0.5 mg PO BID PRN 10/17/16 [History] Levofloxacin [Levaquin] 750 mg PO DAILY #7 tablet 10/23/16 [Rx] Allergies/Adverse Reactions: Allergies No Known Allergies Allergy (Verified 02/04/16 19:19) - Notes to Outpatient Provider Patient was found blood culture positive. Will finish a 10 day Levaquin course. Please continue Levaquin by mouth for 7 more days. Date of admission: 10/20/16 01:20 Primary care physician: Reanna Pagan Consults: 10/21/16 15:31 Consult to Occupational Therapy [CONS] Routine Comment: Evaluate, develop and implement POC Consult to Physical Therapy [CONS] Routine Comment: Evaluate, develop and implement POC Discharging clinician: Maria Eugenia Rowan Anticipated date of discharge: 10/23/16 - Patient Status Disposition: Home Health Service Condition: Fair Overall status at discharge: patient is back to baseline - Discharge Instructions Follow Up With: Reanna Pagan MD [Primary Care Provider] - 10/23/16 10:45 am - Diet and Activity Activity: as per physical therapy Diet: advance to your usual diet Interval History: Ms. Gaines is a 66 year old female With history of COPD and chronic hypoxic hypercapnic respiratory failure on home oxygen presented to the ER with complaints of chest pain that began this morning when she woke up. Pain is located on the left side of her chest and radiates up to her bilateral jaw. Her pain felt very severe and was intermittently getting worse. On coming to the ER, she was given breathing treatments and her pain slowly subsided. She is pain-free now. She did have palpitations prior to presentation. Denies any fever or chills or night sweats. Denies any cough or sputum production. She denies any wheezing or need to use her inhaler at home. Hospital course: Ms. Gaines is a 66 year old female admitted for chest pain. Patient was placed on continuous cardiac monitoring, 3 sets of troponin shows negative, stress test has been done, result is negative. Patient has positive d-dimer, CTA and doppler legs done, shows negative. Patient also has a positive blood culture on admission. Repeat blood culture negative. Final blood culture result shows Pseudomonas sensitive to Levaquin. We will continue Levaquin treatment to finish a 10 day course. Patient has chronic hypercapnia, BiPAP qualification test done and patient qualify for home BiPAP. Home BiPAP set for pt. I saw and examined the patient today. She is awake alert, oriented 3. Denies chest pain. She said her shortness of breath is at about her baseline. Vital signs stable. PT/OT saw patient, recommended continue home PT and home OT. Patient with discharge home today with home health, home PT, home OT, and home BiPAP. - Time Spent with Patient Total time spent providing and/or coordinating discharge services: Greater than 30 minutes - Constitutional Vitals: Temp Pulse Resp BP Pulse Ox 98.5 F 103 20 119/66 100 10/23/16 07:36 10/23/16 07:36 10/23/16 10:36 10/23/16 07:36 10/23/16 10:36 General appearance: Present: cooperative, A&O X 3, pleasant, no acute distress, answers questions appropriately - Head Head exam: Present: atraumatic, normocephalic - Eye Eye exam: Present: PERRL, conjuntiva pink, sclera anicteric Pupils: Present: PERRL - Neck Neck exam general surgery: Present: supple, trachea midline. Absent: lymphadenopathy - Respiratory Respiratory exam: Present: CTAB. Absent: accessory muscle use, rales, rhonchi, wheezes - Cardiovascular Cardiovascular exam: Present: RRR, +S1, +S2. Absent: diastolic murmur, gallop, rubs, systolic murmur - GI/Abdominal GI/Abdominal exam: Present: normal bowel sounds, soft, no peritoneal signs. Absent: distended, tenderness - Extremities Exam Extremities exam: Present: warm, radial pulses palpable and symetrical. Absent : calf tenderness, cyanotic, pedal edema - Neurological Exam Neurological exam: Present: CN II-XII intact, oriented X3, no focal deficits. Absent: pronater drift, facial droop, speech deficit - Skin Skin exam: Present: dry, intact
[2016-10-23 10:58] VITALS: BP 134/78
--- NOTE | 2016-10-23 11:11 | Physician Discharge Referral ---
Home Health/Hosp Referral Info Transfer to: Home Health Provider in Charge Post Discharge: PCP - Diagnosis (1) Chest pain Priority: Primary Status: Acute (2) COPD (chronic obstructive pulmonary disease) Priority: Secondary Status: Acute (3) Chronic respiratory failure with hypoxia and hypercapnia Priority: Secondary Status: Chronic (4) Bacteremia due to Gram-negative bacteria Priority: Primary Status: Acute (5) DVT prophylaxis Priority: Secondary Status: Acute (6) Anemia Priority: Secondary Status: Acute - Respiratory Orders Other (Home BiPAP at night) Smoking Cessation: Smoking cessation has been advised. For more information, call the [place] Tobacco Quit Line at 8-163-ZKZK-NOW. - Diet/Nutrition Diet/Nutrition Orders: Cardiac - Services Needed Following services are medically necessary services: Nursing, Home Health Aide, Physical Therapy, Occupational Therapy Other Treatments: 2 - Transfer Medications Prescriptions: Levofloxacin [Levaquin] 750 mg PO DAILY #7 tablet Home Medications: Guaifenesin [Mucinex] 600 mg PO BID PRN 02/04/16 [History] Roflumilast [Daliresp] 500 mcg PO DAILY 02/04/16 [History] TraZODone 25 mg PO HS 02/04/16 [History] Alendronate Sodium [Fosamax] 70 mg PO TH 02/05/16 [History] Calcium/Magnesium/Vit D3 [Calcium 500 mg Tablet] 1 tab PO BID 02/05/16 [History] Oxygen 4 l NS AD 02/05/16 [History] Albuterol Neb [Proventil Neb] 2.5 mg IH Q2H PRN #0 inhsol 03/14/16 [Rx] Atorvastatin [Lipitor] 20 mg PO DAILY tablet 03/14/16 [Rx] Buspirone HCl [Buspar] 15 mg PO BID tablet 03/14/16 [Rx] FLUoxetine HCl [Prozac] 20 mg PO DAILY udc 03/14/16 [Rx] Ferrous Sulfate 325 mg PO DAILY tablet 03/14/16 [Rx] Montelukast [Singulair] 10 mg PO HS tablet 03/14/16 [Rx] Theophylline Anhydrous [Phong-24] 300 mg PO DAILY cap.er.24h 03/14/16 [Rx] Albuterol Sulfate [Proair Hfa] 2 puff IH Q4-6H PRN 07/15/16 [History] Aspirin [Lo-Dose Aspirin EC] 81 mg PO DAILY 07/15/16 [History] Cyclobenzaprine [Flexeril] 10 mg PO HS 07/15/16 [History] Loratadine [Allergy Relief] 10 mg PO DAILY 07/15/16 [History] Omeprazole [PriLOSEC] 20 mg PO DAILY 07/15/16 [History] Ipratropium/Albuterol Neb [Duoneb] 3 ml IH [id number] inhsol 07/21/16 [Rx] Dextran 70/Hypromellose [Artificial Tears Eye Drops] 1 drop OP DAILY PRN [History] Fluticasone Propionate Nasal [Flonase] 1 spray NS DAILY 10/17/16 [History] Fluticasone/Salmeterol [Advair 250-50 Diskus] 1 puff IH BID 10/17/16 [History] Fluticasone/Vilanterol [Breo Ellipta 100-25 Mcg INH] 1 puff IH DAILY 10/17/16 [ History] LORazepam [Ativan] 0.5 mg PO BID PRN 10/17/16 [History] Levofloxacin [Levaquin] 750 mg PO DAILY #7 tablet 10/23/16 [Rx] Allergies/Adverse Reactions: Allergies No Known Allergies Allergy (Verified 02/04/16 19:19) Certification: Further, I certify that my clinical findings support that this patient is homebound (i.e. absences from home require considerable and taxing effort and are for medical reasons or congregation services or infrequently or short duration when for other reasons) because: Homebound Reason: Patient requires assistance of a person or device to safely leave home Attestation: My signature below is to certify that this patient is under my care and that I, or nurse practitioner, or a physician's assistant floor covering printer working with me, has a face-to -face encounter with this patient.
== END 2016-10-23 13:32 | disposition home health service (06) | DRG 313 ==
LOC: 3BNU 10:21 → EMEROO 10:21 → SUATTDRO 12:03 → 3BNU 12:15
PROVIDERS: ADMIT Internal Medicine; ATTEND Internal Medicine

== ENCOUNTER 2016-11-04 14:47 | Inpatient (IN) ==
[2016-11-04] MEDS ORDERED: Ipratropium/Albuterol Neb 3 ML ONE (14:49)
[2016-11-04] MEDS ORDERED: Ipratropium/Albuterol Neb 3 ML IH ONE ×2 (14:52→15:36)
[2016-11-04] MEDS ORDERED: methylPREDNISolone 125 MG/2 ML VIAL IVP ONE (14:59)
--- NOTE | 2016-11-04 15:21 | Emergency Department Note ---
Disposition Clinical Impression: COPD (chronic obstructive pulmonary disease) Qualifiers: COPD type: unspecified COPD Qualified Code(s): J44.9 - Chronic obstructive pulmonary disease, unspecified Disposition: Admitted As Inpatient Condition: Serious Time of Disposition: 16:35 SOB HPI - General Chief Complaint: ED Shortness of Breath/Dyspnea Stated Complaint: SOB Time Seen by Provider: 11/04/16 14:48 Source: family, EMS Mode of arrival: EMS Limitations: altered mental status Nursing Notes Reviewed: Yes Vital Signs Reviewed: Yes - History of Present Illness 66-year-old female with gradually worsening shortness of breath over the last 2 days along with associated progressive confusion that is exactly the same as prior COPD exacerbations with hypercapnia. Patient was admitted for similar symptoms 3 weeks ago. She had hypercapnia to 121 and then, but she refuses intubation. She was discharged and doing well for a couple weeks until she had worsening of symptoms over the last few days. She has been compliant with her medications at home. She denies any fever, headache, chest pain, GI or symptoms, rashes or edema. - Related Data Home Medications Medication Instructions Recorded Confirmed Guaifenesin [Mucinex] 600 mg PO BID PRN 02/04/16 11/04/16 Roflumilast [Daliresp] 500 mcg PO DAILY 02/04/16 11/04/16 TraZODone 25 mg PO HS 02/04/16 11/04/16 Alendronate Sodium [Fosamax] 70 mg PO TH 02/05/16 11/04/16 Oxygen 4 l NS AD 02/05/16 11/04/16 Albuterol Sulfate [Proair Hfa] 2 puff IH Q4-6H PRN 07/15/16 11/04/16 Aspirin [Lo-Dose Aspirin EC] 81 mg PO DAILY 07/15/16 11/04/16 Omeprazole [PriLOSEC] 20 mg PO DAILY 07/15/16 11/04/16 Dextran 70/Hypromellose 1 drop OP DAILY PRN 10/17/16 11/04/16 [Artificial Tears Eye Drops] LORazepam [Ativan] 0.5 mg PO BID PRN 10/17/16 11/04/16 Ferrous Sulfate 325 mg PO BID 11/04/16 11/04/16 predniSONE [PredniSONE] 10 mg PO DAILY 11/04/16 11/04/16 Previous Rx's Medication Instructions Recorded Albuterol Neb [Proventil Neb] 2.5 mg IH Q2H PRN #0 inhsol 03/14/16 Atorvastatin [Lipitor] 20 mg PO DAILY tablet 03/14/16 Buspirone HCl [Buspar] 15 mg PO BID tablet 03/14/16 FLUoxetine HCl [Prozac] 20 mg PO DAILY udc 03/14/16 Montelukast [Singulair] 10 mg PO HS tablet 03/14/16 Theophylline Anhydrous [Phong-24] 300 mg PO DAILY cap.er.24h 03/14/16 Ipratropium/Albuterol Neb [Duoneb] 3 ml IH [id number] inhsol 07/21/16 Allergies Allergy/AdvReac Type Severity Reaction Status Date / Time No Known Allergies Allergy Verified 02/04/16 19:19 All systems ED: reviewed and negative except as stated. Past Medical History - Past Medical History Attestation: Yes The following information was validated with the patient. Source: patient Medical history: Reports: CHF, COPD, GERD, hyperlipidemia, hypertension, other Surgical history: Reports: appendectomy, other Psychiatric history: Reports: anxiety - Social History Smoking Status: Former smoker Smokeless Tobacco Status: No Alcohol use: Reports: none Drug use: Reports: none Physical Exam - Head Head exam: atraumatic, normocephalic, normal inspection - Eye Eye exam: Present: normal appearance, PERRL, EOMI - ENT ENT exam: normal exam, normal oropharynx, mucous membranes moist - Neck Neck exam: Present: normal inspection, full ROM, trachea midline - Chest Chest inspection: Present: normal inspection, symmetric chest wall rise - Respiratory No air movement prior to DuoNeb's. There is minimal air movement with expiratory wheeze after duo nebs. Cardiovascular Cardiovascular exam: Present: regular rate, normal rhythm, normal heart sounds - Abdominal Exam Abdominal exam: Present: soft, Non-Tender. Absent: tenderness, distention, guarding, rebound, rigidity - Extremities Exam Extremities exam: Present: normal inspection, full ROM - Expanded Lower Extremity Exam Hip/Pelvis exam: Present: normal inspection, full ROM - Back Exam Back exam: Present: normal inspection, full ROM. Absent: tenderness, CVA tenderness (R), CVA tenderness (L) - Neurological Exam Neurological exam: Present: alert, oriented X3, CN II-XII intact - Psychiatric Psychiatric exam: Present: normal affect, normal mood - Skin Skin exam: Present: warm, dry, intact, normal color - General Limitations: altered mental status General appearance: alert Course - Reevaluation(s) Reevaluation #1: Venous blood gas shows CO2 of 121. This is exactly the same as prior. Patient is awake and protecting her airway. Regardless, she refuses intubation or CPR. She was given 0.5 mg of Ativan to be able to tolerate BiPAP. She is on BiPAP at this time. Patient received 6 DuoNeb treatments. Hospitalist is paged for admission. Patient received 125 mg of Solu-Medrol. Time: 16:34 Reevaluation #2: Patient accepted by Dr. Harris. He is aware that she is DNR/DNI. She will go to the stepdown unit. Time: 16:39 Vital Signs Respiratory Rate 16 11/04/16 14:53 O2 Sat by Pulse Oximetry 86 11/04/16 14:53 Temperature 97.7 F 11/04/16 14:54 Pulse Rate 107 11/04/16 16:54 Respiratory Rate 20 11/04/16 17:04 Blood Pressure 138/67 11/04/16 17:04 O2 Sat by Pulse Oximetry 100 11/04/16 16:54 Oxygen Delivery Oxygen Delivery Bipap Shortness of Breath/Dyspnea - Lab Data Result diagrams: 11/04/16 15:37 11/04/16 15:37 Lab Results 11/04/16 11/04/16 11/04/16 Range/Units 15:37 15:37 15:37 WBC 6.3 (4.3-11.1) K/mcL RBC 3.41 L (3.82-4.97) M/mcL Hgb 9.7 L (11.5-15.4) g/dL Hct 33.8 L (35.3-44.9) % MCV 99.1 (83.0-100.0) fL MCH 28.4 (28.0-33.3) pg MCHC 28.7 L (31.6-35.5) g/dL RDW 12.4 (11.5-14.5) % Plt Count 269 (140-400) K/mcL MPV 9.1 L (9.4-12.4) fL Immature Gran % 0.3 (0-4) % Seg Neutrophils % 64.7 % Lymphocytes % 22.4 % Monocytes % 10.5 % Eosinophils % 1.9 % Basophils % 0.2 % Neutrophils # 4.1 (1.6-8.9) K/mcL Lymphocytes # 1.4 (0.6-4.6) K/mcL Monocytes # 0.7 (0.0-1.3) K/mcL Eosinophils # 0.1 (0.0-0.6) K/mcL Basophils # 0.0 (0.0-0.2) K/mcL Platelet Estimate Normal (Normal) Hypochromasia Present A (Not Present) VBG pH (7.32-7.42) pH Units VBG pCO2 (41-51) mmHg VBG pO2 (25-40) mmHg VBG HCO3 (21-27) mEq/L Sodium 143 (136-145) mEq/L Potassium 4.1 (3.5-4.5) mEq/L Chloride 86 L (98-109) mEq/L Carbon Dioxide 49 H* (19-29) mEq/L BUN 15 (7-20) mg/dL Creatinine 0.64 (0.57-1.11) mg/dL Est GFR ( Amer) > 60 (> 60) Est GFR (Non-Af Amer) > 60 (> 60) BUN/Creatinine Ratio 23 (6-26) Glucose 171 H (70-99) mg/dL Calculated Osmolality 301 H (280-300) Lactic Acid 1.3 (0.5-2.2) mmol/L Calcium 10.0 (8.6-10.8) mg/dL Troponin I (0-0.03) ng/mL 11/04/16 11/04/16 Range/Units 15:37 15:37 WBC (4.3-11.1) K/mcL RBC (3.82-4.97) M/mcL Hgb (11.5-15.4) g/dL Hct (35.3-44.9) % MCV (83.0-100.0) fL MCH (28.0-33.3) pg MCHC (31.6-35.5) g/dL RDW (11.5-14.5) % Plt Count (140-400) K/mcL MPV (9.4-12.4) fL Immature Gran % (0-4) % Seg Neutrophils % % Lymphocytes % % Monocytes % % Eosinophils % % Basophils % % Neutrophils # (1.6-8.9) K/mcL Lymphocytes # (0.6-4.6) K/mcL Monocytes # (0.0-1.3) K/mcL Eosinophils # (0.0-0.6) K/mcL Basophils # (0.0-0.2) K/mcL Platelet Estimate (Normal) Hypochromasia (Not Present) VBG pH 7.31 L (7.32-7.42) pH Units VBG pCO2 121 H (41-51) mmHg VBG pO2 50 H (25-40) mmHg VBG HCO3 60.9 H (21-27) mEq/L Sodium (136-145) mEq/L Potassium (3.5-4.5) mEq/L Chloride (98-109) mEq/L Carbon Dioxide (19-29) mEq/L BUN (7-20) mg/dL Creatinine (0.57-1.11) mg/dL Est GFR ( Amer) (> 60) Est GFR (Non-Af Amer) (> 60) BUN/Creatinine Ratio (6-26) Glucose (70-99) mg/dL Calculated Osmolality (280-300) Lactic Acid (0.5-2.2) mmol/L Calcium (8.6-10.8) mg/dL Troponin I 0.01 (0-0.03) ng/mL - EKG Data EKG attestation: Yes I reviewed and interpreted this EKG. EKG results narrative: Sinus tachycardia with sinus arrhythmia at 113. There is motion artifact which the computer is reading as atrial fibrillation. Within the context of limitation by motion artifact there is no ST elevation or depression. Normal axis. Overall, no change when compared with 10/17/2016. Critical Care Time Critical Care Time: Yes Total Critical Care Time: 30 Attestation: The high probability of a clinically significant, sudden or life threatening deterioration of the [resp] system(s) required my full and direct attention, intervention and personal management. The aggregate critical care time was [30] minutes. This time is in addition to time spent performing reported procedures but includes the following: [X] Data Review and interpretation [X] Patient assessment and monitoring of vital signs [X] Documentation [X] Medication orders and management Attestation Statement - Attestation Attestation: I personally interviewed and examined this patient and my medical decision- making was reviewed with the ED Resident Physician, Dr. Rinaldi. I agree with the documented findings, disposition and treatment plan as described except to the extent set forth below. Patient is a 66-year-old white female, with a history of severe COPD, who presents to the emergency department brought by her family with a 2 day history of gradually worsening shortness of breath and confusion. Family states this is very similar to prior presentations when she has exacerbation of her COPD and her CO2 levels are high. Patient received IV access, 3 aerosols and IV steroids on arrival to ED. Patient oxygen saturations were 86% on arrival. Currently on 6 L nasal cannula ED following aerosols she has 100% O2 sat. Patient denies any form of chest pain pressure or heaviness, no fevers or chills , no nausea or vomiting, no posttussive emesis. Patient denies any other associated symptoms. Patient with no conversational dyspnea or tachypnea but on auscultation of lungs patient with minimal air exchange and faint wheezing. Remainder of exams unremarkable with the exception of mild 1+ edema in the lower extremities bilaterally. Patient will be placed on BiPAP, and at this time and conversation with her in regards to airway management patient does not want to be intubated if her breathing worsens. CVG will be obtained, chest x-ray and labs will be obtained as well. Patient will be monitored closely. Patient's labs show an elevated CO2 which is chronic for her. Patient's being started on BiPAP currently. Labs unremarkable with the exception of her elevated CO2, chest x-ray within normal limits just emphysematous changes. Will admit patient for further management of her acute exacerbation of COPD.
[2016-11-04 15:47] LABS: VBG HCO3 60.9 mEq/L (21-27); VBG PH 7.31 pH Units (7.32-7.42)
[2016-11-04 15:51] LABS: Immature Granulocytes % 0.3 % (0-4); Mean Corpuscular Hemoglobin 28.4 pg (28.0-33.3); Red Cell Distribution Width 12.4 % (11.5-14.5)
[2016-11-04] MEDS ORDERED: *HR* LORazepam 2 MG/ML VIAL IVP ONE (15:51)
[2016-11-04 15:52] LABS: Basophils % 0.2 %; Eosinophils # 0.1 K/mcL (0.0-0.6); Eosinophils % 1.9 %; Hematocrit 33.8 % (35.3-44.9); Hemoglobin 9.7 g/dL (11.5-15.4); Lymphocytes # 1.4 K/mcL (0.6-4.6); Lymphocytes % 22.4 %; Mean Corpuscular HGB Conc 28.7 g/dL (31.6-35.5); Mean Corpuscular Volume 99.1 fL (83.0-100.0); Mean Platelet Volume 9.1 fL (9.4-12.4); Monocytes # 0.7 K/mcL (0.0-1.3); Monocytes % 10.5 %; Neutrophils # 4.1 K/mcL (1.6-8.9); Platelet Count 269 K/mcL (140-400); Red Blood Count 3.41 M/mcL (3.82-4.97); Segmented Neutrophils % 64.7 %
[2016-11-04 15:59] LABS: BUN/Creatinine Ratio 23 (6-26); Blood Urea Nitrogen 15 mg/dL (7-20); Chloride 86 mEq/L (98-109); Glucose 171 mg/dL (70-99); Osmolality,Calculated 301 (280-300); Potassium 4.1 mEq/L (3.5-4.5); Sodium 143 mEq/L (136-145); eGFR For African Americans > 60 (> 60); eGFR For Non-African Americans > 60 (> 60)
[2016-11-04 16:00] LABS: Carbon Dioxide 49 mEq/L (19-29)
[2016-11-04 16:15] LABS: Hypochromasia Present (Not Present); Platelet Estimate Normal (Normal)
[2016-11-04] MEDS ORDERED: Naloxone 0.4 MG/ML INJ IVP PRN (17:27)
[2016-11-04] MEDS ORDERED: Acetaminophen 325 MG TABLET PO PRN (17:27)
[2016-11-04 19:39] LABS: ABG Base Excess 29.6 mEq/L (-2.0 to 3.0); ABG HCO3 59.2 mEQ/L (21-27); ABG Oxygen Saturation 91 % (95-98); ABG PH 7.38 pH Units (7.32-7.45); ABG PO2 63 mmHg (85-104); ABG TCO2 62.3 mEq/L (20-26)
[2016-11-04 19:40] LABS: ABG PCO2 100 mmHg (35-45)
[2016-11-04 19:41] LABS: Blood Gas FiO2 36 %
[2016-11-04] MEDS: Azithromycin 500 MG in D5% in Water 250 ML IVPB SCH (20:16)
[2016-11-04] MEDS: *HR* LORazepam 2 MG/ML VIAL IVP PRN (20:16)
--- NOTE | 2016-11-04 20:30 | Internal Med History&Physical ---
Date of Encounter: 11/04/16 Time of Encounter: 20:24 Assessment and Plan (1) Acute on chronic respiratory failure with hypercapnia Current visit: No Status: Acute Secondary to severe COPD exacerbation. Patient dependent at this time. Patient is apparently qualified for BiPAP at home but does not have this in place. We will consult social work. (2) COPD exacerbation Current visit: No Status: Acute Patient has chronic hypercapnia has episodes of altered mental status in the past. Her CO2 on presentation was 121. Most recent recheck shows a CO2 of 100 with a pH of 7.38 this appears close to the patient's baseline.we will continue with BiPAP therapy, initiate IV steroids, Zithromax, scheduled DuoNeb's. (3) Depression Current visit: No Status: Acute Stable. Continue home medications. Qualifiers: Depression Type: major depressive disorder Major depression recurrence: recurrent Active/Remission status: currently active Major depression episode severity: unspecified Qualified Code(s): F33.9 - Major depressive disorder, recurrent, unspecified (4) DVT prophylaxis Current visit: No Status: Acute Heparin 5000 units subcutaneous twice a day. Internal Medicine - H&P: HPI Chief complaint: AMS Admitted From: Emergency Dept Plans for Post Hospital Care: Home History of present illness: Ms. Gaines is a 66 year old female with history of severe COPD who presents with altered mental status. Patient's daughter at the bedside and provides most of the history. The daughter reports that the patient has had worsening confusion over the last several days with associated shortness of breath. Daughter denies cough or sputum production. Apparently the patient has qualified for BiPAP at home but they have had difficulty obtaining it. Patient was admitted approximately 3 weeks ago for similar symptoms. Past Med Surg Social Fam HX - Past Medical History Medical history: CHF, COPD, GERD, hyperlipidemia, hypertension, other Psychiatric history: anxiety - Past Surgical History Surgical History: appendectomy, other - Social History Smoking Status: Former smoker Smokeless Tobacco Status: No Alcohol use: none Drug use: none - Family History Mother Living Status: Hx Family Cancer: Yes (brain) Father Living Status: Internal Medicine - H&P: Meds Guaifenesin [Mucinex] 600 mg PO BID PRN 02/04/16 [History] Roflumilast [Daliresp] 500 mcg PO DAILY 08/12/16 [History] TraZODone 25 mg PO HS 02/04/16 [History] Alendronate Sodium [Fosamax] 70 mg PO TH 02/05/16 [History] Oxygen 4 l NS AD 02/05/16 [History] Albuterol Neb [Proventil Neb] 2.5 mg IH Q2H PRN #0 inhsol 03/14/16 [Rx] Atorvastatin [Lipitor] 20 mg PO DAILY tablet 03/14/16 [Rx] Buspirone HCl [Buspar] 15 mg PO BID tablet 03/14/16 [Rx] FLUoxetine HCl [Prozac] 20 mg PO DAILY udc 03/14/16 [Rx] Montelukast [Singulair] 10 mg PO HS tablet 03/14/16 [Rx] Theophylline Anhydrous [Phong-24] 300 mg PO DAILY cap.er.24h 03/14/16 [Rx] Albuterol Sulfate [Proair Hfa] 2 puff IH Q4-6H PRN 07/15/16 [History] Aspirin [Lo-Dose Aspirin EC] 81 mg PO DAILY 07/15/16 [History] Omeprazole [PriLOSEC] 20 mg PO DAILY 07/15/16 [History] Ipratropium/Albuterol Neb [Duoneb] 3 ml IH [id number] inhsol 07/21/16 [Rx] Dextran 70/Hypromellose [Artificial Tears Eye Drops] 1 drop OP DAILY PRN [History] LORazepam [Ativan] 0.5 mg PO BID PRN 10/17/16 [History] Ferrous Sulfate 325 mg PO BID 11/04/16 [History] predniSONE [PredniSONE] 10 mg PO DAILY 11/04/16 [History] Allergies No Known Allergies Allergy (Verified 02/04/16 19:19) ROS unobtainable: due to mental status All Systems PM: A 10-system review of systems was performed and is negative for pertinent findings except as documented above in the HPI. - Constitutional Vitals: Temp Pulse Resp BP Pulse Ox 97.7 F 105 20 138/67 94 11/04/16 14:54 11/04/16 17:31 11/04/16 17:04 11/04/16 17:04 11/04/16 17:31 General appearance: Present: A&O X 0, no acute distress - Head Head exam: Present: atraumatic, normal inspection, normocephalic - Eye Eye exam: Present: EOMI, PERRL - ENT ENT exam: Present: mucous membranes dry - Respiratory Respiratory exam: Present: decreased breath sounds (severly), tachypnea. Absent : rhonchi, wheezes - GI/Abdominal GI/Abdominal exam: Present: firm, normal bowel sounds. Absent: rebound, tenderness, no peritoneal signs - Extremities Exam Extremities exam: Present: pedal edema (trace), warm. Absent: calf tenderness, tenderness - Neurological Exam Neurological exam: Present: alert, altered, no focal deficits. Absent: oriented X3 Internal Med - H&P Results - Labs CBC & Chem 7: 11/04/16 15:37 11/04/16 15:37 - ABG Interpretation ABG results: 11/04/16 19:30 ABG pH 7.38 ABG pCO2 100 H* ABG pO2 63 L ABG HCO3 59.2 H ABG Total CO2 62.3 H ABG O2 Saturation 91 L ABG Base Excess 29.6 H
[2016-11-04] MEDS: Budesonide/Formoterol 160/4.5 MDI IH SCH ×2 (20:49→20:55)
[2016-11-04] MEDS: Ipratropium/Albuterol Neb 3 ML IH SCH (20:49)
[2016-11-04] MEDS: Dexmedetomidine HCl 400 MCG/100 ML MLS IVC SCH (21:19)
[2016-11-05] MEDS: methylPREDNISolone 125 MG/2 ML VIAL IVP SCH ×5 (00:11→23:29)
[2016-11-05] MEDS: Ipratropium/Albuterol Neb 3 ML IH SCH ×6 (00:14→20:53)
[2016-11-05] MEDS: *HR* LORazepam 2 MG/ML VIAL IVP PRN ×4 (01:27→21:16)
[2016-11-05 02:44] LABS: Basophils % 0.3 %; Hematocrit 28.7 % (35.3-44.9); Hemoglobin 8.4 g/dL (11.5-15.4); Immature Granulocytes % 0.3 % (0-4); Lymphocytes # 0.3 K/mcL (0.6-4.6); Lymphocytes % 7.4 %; Mean Corpuscular HGB Conc 29.3 g/dL (31.6-35.5); Mean Corpuscular Hemoglobin 27.9 pg (28.0-33.3); Mean Corpuscular Volume 95.3 fL (83.0-100.0); Mean Platelet Volume 8.7 fL (9.4-12.4); Monocytes # 0.1 K/mcL (0.0-1.3); Monocytes % 2.6 %; Neutrophils # 3.1 K/mcL (1.6-8.9); Platelet Count 220 K/mcL (140-400); Red Blood Count 3.01 M/mcL (3.82-4.97); Red Cell Distribution Width 12.3 % (11.5-14.5); Segmented Neutrophils % 89.4 %
[2016-11-05 03:08] LABS: BUN/Creatinine Ratio 26 (6-26); Blood Urea Nitrogen 15 mg/dL (7-20); Calcium 9.4 mg/dL (8.6-10.8); Chloride 85 mEq/L (98-109); Glucose 149 mg/dL (70-99); Osmolality,Calculated 296 (280-300); Potassium 4.3 mEq/L (3.5-4.5); Sodium 141 mEq/L (136-145); eGFR For African Americans > 60 (> 60); eGFR For Non-African Americans > 60 (> 60)
[2016-11-05 03:10] LABS: Carbon Dioxide 48 mEq/L (19-29)
[2016-11-05 05:23] LABS: ABG Base Excess 30.1 mEq/L (-2.0 to 3.0); ABG HCO3 59.6 mEQ/L (21-27); ABG Oxygen Saturation 93 % (95-98); ABG PH 7.41 pH Units (7.32-7.45); ABG PO2 68 mmHg (85-104); ABG TCO2 62.5 mEq/L (20-26)
[2016-11-05 05:24] LABS: Blood Gas FiO2 35 %
[2016-11-05 05:25] LABS: ABG PCO2 94 mmHg (35-45)
[2016-11-05] MEDS: *HR* Heparin 5,000 UNIT/ML VIAL SQ SCH ×2 (06:25→17:31)
--- NOTE | 2016-11-05 07:32 | Pulmonology Consult Note ---
<Jeannie Vargas - Last Filed: 11/05/16 09:34> Date of Encounter: 11/05/16 Time of Encounter: 06:55 Assessment and Plan (1) Acute on chronic respiratory failure with hypercapnia Current Visit: No Status: Acute Patient has end stage COPD. Has had mutliple hospitalizations in the past for COPD exacerbation. she is chronically hypercapnic with baseline CO2 in 90s. Patient was prescribed BiPAP at home but never received it. Plan: consult to palliative care to discuss goals of care and end of life care options. continue with BiPAP and treatment for COPD exacerbation as below. consult to drug abuse social worker. (2) Altered mental state Current Visit: No Status: Acute likely secondary to acute on chronic hypercapnic respiratory failure secondary to COPD exacerbation. earlier this morning, she thought nurses were trying to kill her, and she pulled out her IV access, which had to be replaced. CT head showed no acute intracranial abnormality. Plan: will continue with BiPAP decrease precedex, avoid over sedation. Qualifiers: Altered mental status type: somnolence Qualified Code(s): R40.0 - Somnolence (3) COPD exacerbation Current Visit: No Status: Acute CXR reviewed, shows flattened diaphragm with increased vascular congestion. Plan: IV methyprednisolone 60Q6 zithromax day 2 scheudled DuoNebs Q4H History of Present Illness Consult date: 11/05/16 Requesting physician: Maria Eugenia Rowan Reason for consult: dyspnea, other (acute on chronic respiratory failure with hypercapnia. ) Chief complaint: shortness of breath History of present illness: 66 year old female with Past medical history of severe COPD (on home oxygen), CHF, GERD, HLD, HTN, blindness. Patient came to ED overnight for CC of shortness of breath. She was brought to the ED by her family with history of gradually worsening shortness of breath and confusion x2 days. This is apparently very similar to her previous episodes of COPD exacerbation. In the ED , she received breathing treatments, IV steroids, and oxygen. Upon presentation , her oxygen sat was about 86%. She is currently on BiPAP. Patient is very confused and she believes that the nurses are trying to kill her. Patient has had multiple hospitalizations for COPD exacerbation. Patient was referred to retirement, and from there she was to be on BiPAP when sent home, but apparently never received it. Past Med Surg Social Fam HX - Past Medical History Medical history: CHF, COPD, GERD, hyperlipidemia, hypertension, other Psychiatric history: anxiety - Past Surgical History Surgical History: appendectomy, other - Social History Smoking Status: Former smoker Smokeless Tobacco Status: No Alcohol use: none Drug use: none - Family History Mother Living Status: Hx Family Cancer: Yes (brain) Father Living Status: Medications and Allergies Guaifenesin [Mucinex] 600 mg PO BID PRN 02/04/16 [History] Roflumilast [Daliresp] 500 mcg PO DAILY 02/04/16 [History] TraZODone 25 mg PO HS 02/04/16 [History] Alendronate Sodium [Fosamax] 70 mg PO TH 02/05/16 [History] Oxygen 4 l NS AD 02/05/16 [History] Albuterol Neb [Proventil Neb] 2.5 mg IH Q2H PRN #0 inhsol 03/14/16 [Rx] Atorvastatin [Lipitor] 20 mg PO DAILY tablet 03/14/16 [Rx] Buspirone HCl [Buspar] 15 mg PO BID tablet 03/14/16 [Rx] FLUoxetine HCl [Prozac] 20 mg PO DAILY udc 03/14/16 [Rx] Montelukast [Singulair] 10 mg PO HS tablet 03/14/16 [Rx] Theophylline Anhydrous [Phong-24] 300 mg PO DAILY cap.er.24h 03/14/16 [Rx] Albuterol Sulfate [Proair Hfa] 2 puff IH Q4-6H PRN 07/15/16 [History] Aspirin [Lo-Dose Aspirin EC] 81 mg PO DAILY 07/15/16 [History] Omeprazole [PriLOSEC] 20 mg PO DAILY 07/15/16 [History] Ipratropium/Albuterol Neb [Duoneb] 3 ml IH [id number] inhsol 07/21/16 [Rx] Dextran 70/Hypromellose [Artificial Tears Eye Drops] 1 drop OP DAILY PRN [History] LORazepam [Ativan] 0.5 mg PO BID PRN 10/17/16 [History] Ferrous Sulfate 325 mg PO BID 11/04/16 [History] predniSONE [PredniSONE] 10 mg PO DAILY 11/04/16 [History] Allergies No Known Allergies Allergy (Verified 02/04/16 19:19) ROS unobtainable: due to mental status All Systems: A 10-system review of systems was performed and is negative for pertinent findings except as documented above in the HPI. Physical Examination Vital Signs: Vital Signs, Last 4 Hours Temp Pulse Resp BP Pulse Ox 11/05/16 06:00 73 22 101/49 94 11/05/16 04:29 33 123/62 94 11/05/16 04:00 96.9 F L 75 26 123/62 95 General appearance: alert, lethargic Eyes: nonicteric Neck: supple, no lymphadenopathy, no JVD Auscultation: right: wheezes, bilateral: diminished breath sounds Cardiovascular: regular rate and rhythm Gastrointestinal: normoactive bowel sounds, soft, non-tender Extremities: no cyanosis, no edema, no clubbing unable to assess due to mental status anxious Results - Laboratory Findings CBC and BMP: 11/05/16 02:37 11/05/16 02:37 ABG ABG pH 7.41 pH Units (7.32-7.45) 11/05/16 05:11 ABG pCO2 94 mmHg (35-45) H* 11/05/16 05:11 ABG pO2 68 mmHg (85-104) L 11/05/16 05:11 ABG O2 Saturation 93 % (95-98) L 11/05/16 05:11 Abnormal lab findings: Abnormal lab results WBC 3.5 K/mcL (4.3-11.1) L 11/05/16 02:37 RBC 3.01 M/mcL (3.82-4.97) L 11/05/16 02:37 Hgb 8.4 g/dL (11.5-15.4) L 11/05/16 02:37 Hct 28.7 % (35.3-44.9) L 11/05/16 02:37 MCH 27.9 pg (28.0-33.3) L 11/05/16 02:37 MCHC 29.3 g/dL (31.6-35.5) L 11/05/16 02:37 MPV 8.7 fL (9.4-12.4) L 11/05/16 02:37 Lymphocytes # 0.3 K/mcL (0.6-4.6) L 11/05/16 02:37 Hypochromasia Present (Not Present) A 11/04/16 15:37 ABG pCO2 94 mmHg (35-45) H* 11/05/16 05:11 ABG pO2 68 mmHg (85-104) L 11/05/16 05:11 ABG HCO3 59.6 mEQ/L (21-27) H 11/05/16 05:11 ABG Total CO2 62.5 mEq/L (20-26) H 11/05/16 05:11 ABG O2 Saturation 93 % (95-98) L 11/05/16 05:11 ABG Base Excess 30.1 mEq/L (-2.0 to 3.0) H 11/05/16 05:11 VBG pH 7.31 pH Units (7.32-7.42) L 11/04/16 15:37 VBG pCO2 121 mmHg (41-51) H 11/04/16 15:37 VBG pO2 50 mmHg (25-40) H 11/04/16 15:37 VBG HCO3 60.9 mEq/L (21-27) H 11/04/16 15:37 Chloride 85 mEq/L (98-109) L 11/05/16 02:37 Carbon Dioxide 48 mEq/L (19-29) H* 11/05/16 02:37 Glucose 149 mg/dL (70-99) H 11/05/16 02:37 POC Glucose 168 (58-89) H 11/04/16 17:28 - Clinical Findings Intake & Output: Intake & Output 11/04/16 11/04/16 11/05/16 15:59 23:59 07:59 Intake Total 265 / 265 46 / 46 Balance 265 / 265 46 / 46 Weight 69 kg Consult Discharge Plan - Plan Referrals: Reanna Pagan MD [Primary Care Provider] - <Juan Combs - Last Filed: 11/05/16 11:20> Date of Encounter: 11/05/16 All Systems: A 10-system review of systems was performed and is negative for pertinent findings except as documented above in the HPI. Physical Examination Vital Signs: Vital Signs, Last 4 Hours Temp Pulse Resp BP Pulse Ox 11/05/16 10:43 68 11/05/16 10:00 79 16 108/50 96 11/05/16 08:00 93 20 138/64 97 11/05/16 07:47 20 138/64 92 11/05/16 07:41 97.7 F 11/05/16 07:38 91 Results - Laboratory Findings CBC and BMP: 11/05/16 02:37 11/05/16 02:37 ABG ABG pH 7.41 pH Units (7.32-7.45) 11/05/16 05:11 ABG pCO2 94 mmHg (35-45) H* 11/05/16 05:11 ABG pO2 68 mmHg (85-104) L 11/05/16 05:11 ABG O2 Saturation 93 % (95-98) L 11/05/16 05:11 Abnormal lab findings: Abnormal lab results WBC 3.5 K/mcL (4.3-11.1) L 11/05/16 02:37 RBC 3.01 M/mcL (3.82-4.97) L 11/05/16 02:37 Hgb 8.4 g/dL (11.5-15.4) L 11/05/16 02:37 Hct 28.7 % (35.3-44.9) L 11/05/16 02:37 MCH 27.9 pg (28.0-33.3) L 11/05/16 02:37 MCHC 29.3 g/dL (31.6-35.5) L 11/05/16 02:37 MPV 8.7 fL (9.4-12.4) L 11/05/16 02:37 Lymphocytes # 0.3 K/mcL (0.6-4.6) L 11/05/16 02:37 Hypochromasia Present (Not Present) A 11/04/16 15:37 ABG pCO2 94 mmHg (35-45) H* 11/05/16 05:11 ABG pO2 68 mmHg (85-104) L 11/05/16 05:11 ABG HCO3 59.6 mEQ/L (21-27) H 11/05/16 05:11 ABG Total CO2 62.5 mEq/L (20-26) H 11/05/16 05:11 ABG O2 Saturation 93 % (95-98) L 11/05/16 05:11 ABG Base Excess 30.1 mEq/L (-2.0 to 3.0) H 11/05/16 05:11 VBG pH 7.31 pH Units (7.32-7.42) L 11/04/16 15:37 VBG pCO2 121 mmHg (41-51) H 11/04/16 15:37 VBG pO2 50 mmHg (25-40) H 11/04/16 15:37 VBG HCO3 60.9 mEq/L (21-27) H 11/04/16 15:37 Chloride 85 mEq/L (98-109) L 11/05/16 02:37 Carbon Dioxide 48 mEq/L (19-29) H* 11/05/16 02:37 Glucose 149 mg/dL (70-99) H 11/05/16 02:37 POC Glucose 168 (58-89) H 11/04/16 17:28 - Clinical Findings Intake & Output: Intake & Output 11/04/16 11/05/16 11/05/16 23:59 07:59 15:59 Intake Total 265 / 265 106 / 106 161 / 161 Balance 265 / 265 106 / 106 161 / 161 Weight 69 kg - Attending Attestation I examined this patient and my medical decision-making was reviewed with the SHOW DOG TRAINER/PA/Advanced Practice Nurse/Resident Physician. I agree with the documented findings, disposition and treatment plan as described except to the extent set forth below. Patient seen and examined. Labs, radiology, chart personally reviewed. Agree with resident's history and physical, assessment, plan with following comments: HAND POTTER: Patient lethargic, but responds to painful stimuli, Pulmonary: Patient has advanced lung disease and appropriate for hospice. I have changed her NIV setting to AVAPS was more appropriate volume delivery. Continue bronchodilators and patient has been on maximum treatment. Bronchodilators and systemic steroid for possible COPD exacerbation, even though a few this is more progression of the disease. Appreciate palliative care input Cardiovascular: stable GI: Nothing by mouth for now Heme: DVT prophylaxis per routine ID: Continue antibiotics and plan to de-escalation Renal; urine out put and renal funtion reviewed Endorcine: blood glucose is monitored Lines: all lines checked and no evidence of infections Skin: skin care to prevent pressure ulcers per nursing routine care Overall prognosis is extremely poor.
[2016-11-05] MEDS: Budesonide/Formoterol 160/4.5 MDI IH SCH ×2 (07:48→20:54)
[2016-11-05] MEDS: (Roflumilast [Daliresp] 500 MCG) PO SCH (07:52)
[2016-11-05] MEDS: Aspirin Enteric Coated 81 MG Tablet PO SCH (07:52)
[2016-11-05] MEDS: FLUoxetine 20 MG CAPSULE PO SCH (07:52)
[2016-11-05] MEDS: Dexmedetomidine HCl 400 MCG/100 ML MLS IVC SCH (08:44)
--- NOTE | 2016-11-05 09:53 | Palliative - Consult Note ---
Date of Encounter: 11/05/16 Time of Encounter: 09:30 - Assessment and Plan (1) COPD (chronic obstructive pulmonary disease) Current Visit: No Status: Acute Assessment and plan: Patient very short of breath, patient has qualified for BiPAP at home, however she does not have in place due to some difficulties with eating and approved. On discussion with patient's daughter Belinda while she has qualified for the BiPAP in the past family was told she was going to need a full sleep study. Not been able to if this done. Is being followed by the pulmonary team. Does appear to be a severe exacerbation of COPD. Of note the patient does qualify for hospice services based on COPD hypercapnic and hypoxemic respiratory failure. Patient has not been interested in this in the past, I have brought it up again with the family today for them to think about it. They were aware of it from previous hospitalizations. Qualifiers: COPD type: COPD with acute exacerbation Qualified Code(s): J44.1 - Chronic obstructive pulmonary disease with (acute) exacerbation (2) Acute on chronic respiratory failure with hypercapnia Current Visit: No Status: Acute Assessment and plan: She is on BiPAP at this time. The patient is DNR a DNI. Patient's being followed by hospitalist and pulmonary teams. Plan per hospitalist and pulmonary teams. (3) Goals of care, counseling/discussion Current Visit: No Status: Acute Assessment and plan: Patient very short of breath, patient has qualified for BiPAP at home, however she does not have in place due to some difficulties with eating and approved. On discussion with patient's daughter Belinda while she has qualified for the BiPAP in the past family was told she was going to need a full sleep study. Not been able to if this done. Is being followed by the pulmonary team. Does appear to be a severe exacerbation of COPD. Of note the patient does qualify for hospice services based on COPD hypercapnic and hypoxemic respiratory failure. Patient has not been interested in this in the past, I have brought it up again with the family today for them to think about it. They were aware of it from previous hospitalizations. She will require probable increase in home health care as this is the desire the family at this time. Again as noted above this has been brought up they are aware of that and they are thinking about it. We will also need to work on getting the patient qualify for BiPAP otherwise the patient will continue to come back to the hospital. Palliative-CN HPI - Data of Consult Patient: known to practice within the last 3 years Requesting Physician: Vianca Gordon Primary Care Provider: Reanna Pagan - Consult Narrative Palliative Care/Comfort Measures: Palliative care Reason for consult: Goals of care, hospice discussion History of present illness: Ms. Gaines is a 66 year old female Patient is a 6-year-old female with a history of very severe COPD. She has been seen by our practice in the past is clearly hospice eligible based on her hypoxemia as well as hypercapnic respiratory failure. Last several days she has been having increasing confusion over there was no increasing cough or sputum production. She had by qualified for BiPAP at home, however the family' s been having a very difficult time obtaining this. Seems to been the most effective thing in terms of keeping her from coming in the hospital. She is nonverbal with me. The history is coming entirely from the patient's record as the family is not available, however on phone call with her daughter Belinda she confirms all of information above. Patient has no complaints of at this time but again is nonverbal. She does appear comfortable on the BiPAP. CC: Vianca Gordon Shortness of of breath Past Med Surg Social Fam HX - Past Medical History Medical history: CHF, COPD, GERD, hyperlipidemia, hypertension, other Psychiatric history: anxiety - Past Surgical History Surgical History: appendectomy, other - Social History Smoking Status: Former smoker Smokeless Tobacco Status: No Alcohol use: none Drug use: none - Family History Mother Living Status: Hx Family Cancer: Yes (brain) Father Living Status: Medications and Allergies Guaifenesin [Mucinex] 600 mg PO BID PRN 02/04/16 [History] Roflumilast [Daliresp] 500 mcg PO DAILY 02/04/16 [History] TraZODone 25 mg PO HS 02/04/16 [History] Alendronate Sodium [Fosamax] 70 mg PO TH 02/05/16 [History] Oxygen 4 l NS AD 02/05/16 [History] Albuterol Neb [Proventil Neb] 2.5 mg IH Q2H PRN #0 inhsol 03/14/16 [Rx] Atorvastatin [Lipitor] 20 mg PO DAILY tablet 03/14/16 [Rx] Buspirone HCl [Buspar] 15 mg PO BID tablet 03/14/16 [Rx] FLUoxetine HCl [Prozac] 20 mg PO DAILY udc 03/14/16 [Rx] Montelukast [Singulair] 10 mg PO HS tablet 03/14/16 [Rx] Theophylline Anhydrous [Phong-24] 300 mg PO DAILY cap.er.24h 03/14/16 [Rx] Albuterol Sulfate [Proair Hfa] 2 puff IH Q4-6H PRN 07/15/16 [History] Aspirin [Lo-Dose Aspirin EC] 81 mg PO DAILY 07/15/16 [History] Omeprazole [PriLOSEC] 20 mg PO DAILY 07/15/16 [History] Ipratropium/Albuterol Neb [Duoneb] 3 ml IH [id number] inhsol 07/21/16 [Rx] Dextran 70/Hypromellose [Artificial Tears Eye Drops] 1 drop OP DAILY PRN [History] LORazepam [Ativan] 0.5 mg PO BID PRN 10/17/16 [History] Ferrous Sulfate 325 mg PO BID 11/04/16 [History] predniSONE [PredniSONE] 10 mg PO DAILY 11/04/16 [History] Allergies No Known Allergies Allergy (Verified 02/04/16 19:19) ROS unobtainable: due to mental status Palliative Care-Exam - Constitutional Vitals: Temp Pulse Resp BP Pulse Ox 97.7 F 93 20 138/64 97 11/05/16 07:41 11/05/16 08:00 11/05/16 08:00 11/05/16 08:00 11/05/16 08:00 General appearance: Present: no acute distress - Head Head Exam: Present: atraumatic, normal inspection - Eye Eye exam: Present: normal appearance - ENT ENT exam: Present: mucous membranes dry - Respiratory Respiratory exam: Present: decreased breath sounds, tachypnea - Cardiovascular Cardiovascular exam: Present: RRR - GI/Abdominal Exam GI/Abdominal exam: Present: normal bowel sounds, soft. Absent: tenderness - Extremities Exam Extremities exam: Present: pedal edema (tRace). Absent: tenderness - Neurological Exam Neurological exam: Present: altered - Psychiatric Psychiatric exam: Absent: agitated, anxious - Skin Skin exam: Present: dry, warm Internal Medicine - CN: Reslt - Labs CBC & Chem 7: 11/05/16 02:37 11/05/16 02:37 Labs: Short CBC 11/05/16 Range/Units 02:37 WBC 3.5 L (4.3-11.1) K/mcL Hgb 8.4 L (11.5-15.4) g/dL Hct 28.7 L (35.3-44.9) % Plt Count 220 (140-400) K/mcL Neutrophils # 3.1 (1.6-8.9) K/mcL BMP 11/05/16 02:37 Sodium 141 Potassium 4.3 Chloride 85 L Carbon Dioxide 48 H* BUN 15 Creatinine 0.57 Glucose 149 H Calcium 9.4 - ABG Interpretation ABG results: ABG ABG pH 7.41 pH Units (7.32-7.45) 11/05/16 05:11 ABG pCO2 94 mmHg (35-45) H* 11/05/16 05:11 ABG pO2 68 mmHg (85-104) L 11/05/16 05:11 ABG O2 Saturation 93 % (95-98) L 11/05/16 05:11 - Impressions Impressions Head CT 11/04/16 21:28 IMPRESSION: No acute intracranial abnormality. D/ / 11/04/2016 22:32:40 Carmen Donaldson MD / asher Interpreting Provider: Carmen Donaldson MD Consult Discharge Plan - Plan Referrals: Reanna Pagan MD [Primary Care Provider] - Palliative Quality Palliative Quality: Screen for Code Status: Yes, Screen for Goals of Care: Yes, Screen for Pain: Yes, If Pain Regimen Started, Initiate Bowel Regimen: NA, Screen for Nausea/Vomitting: Yes Code Status: 11/04/16 17:27 Resuscitation Status: Active [RES] Routine Comment: Resuscitation Status: [id number]
[2016-11-05] MEDS ORDERED: 0.9 % Sodium Chloride 1,000 ML IVC SCH (11:30)
--- NOTE | 2016-11-05 12:50 | Electrocardiograph Report ---
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
[2016-11-05 12:59] LABS: Bilirubin,Urine Negative (Negative); Blood,Urine Negative (Negative); Clarity,Urine Clear (Clear); Color,Urine Yellow (Yellow); Glucose,Urine (UA) Normal (Normal); Ketones,Urine Negative (Negative); Leukocyte Esterase,Urine Negative (Negative); Nitrite,Urine Negative (Negative); PH,Urine 7.5 pH Units (5.0-8.0); Protein,Urine Negative (Neg-Trace); Specific Gravity,Urine 1.016 (1.010-1.025); Urobilinogen,Urine Normal (Normal)
[2016-11-05] MEDS: Azithromycin 500 MG in D5% in Water 250 ML IVPB SCH (21:22)
[2016-11-05] MEDS ORDERED: *HR* LORazepam 2 MG/ML VIAL IVP ONE (21:41)
--- NOTE | 2016-11-05 21:52 | Event Note ---
Date of Encounter: 11/05/16 Time of Encounter: 21:45 Called to see patient by RN for respiratory distress/failure and increased work of breathing. Pt back on BiPap now. I was informed she is DNR CCA/DNI. I discussed with her the code status, and she confirmed DNRCCA/DNI. I explained to her that if she decompensates on BiPap, my next step would be to intubate and place her on mechanical ventilator. She does not want that and confirms DNRCCA/DNI code status again. In such an event, she informed me that she wants to be kept comfortable and to allow her to pass peacefully. I will honor her wishes. I cancelled the ABG I ordered previously. I will give her an extra small dose of Ativan in hopes of alleviating her anxiety/agitation with respiratory distress. I encouraged her to try to tolerate the BiPap. If she declines further, I will honor her wishes for comfort measures as she noted above.
[2016-11-06] MEDS: Ipratropium/Albuterol Neb 3 ML IH SCH ×6 (00:39→20:52)
[2016-11-06 04:40] LABS: Ionized Calcium 1.12 mmol/L (1.15-1.35)
[2016-11-06 04:53] LABS: BUN/Creatinine Ratio 37 (6-26); Blood Urea Nitrogen 25 mg/dL (7-20); Calcium 9.5 mg/dL (8.6-10.8); Chloride 86 mEq/L (98-109); Glucose 181 mg/dL (70-99); Magnesium 2.4 mg/dL (1.6-2.6); Osmolality,Calculated 299 (280-300); Phosphorous 5.4 mg/dL (2.3-4.7); Potassium 4.2 mEq/L (3.5-4.5); Sodium 140 mEq/L (136-145); eGFR For African Americans > 60 (> 60); eGFR For Non-African Americans > 60 (> 60)
[2016-11-06 04:56] LABS: Carbon Dioxide 41 mEq/L (19-29)
[2016-11-06] MEDS: *HR* Heparin 5,000 UNIT/ML VIAL SQ SCH ×2 (05:38→18:15)
[2016-11-06] MEDS: methylPREDNISolone 125 MG/2 ML VIAL IVP SCH ×2 (05:38→11:07)
[2016-11-06] MEDS: *HR* LORazepam 2 MG/ML VIAL IVP PRN ×3 (05:39→18:15)
[2016-11-06 05:59] LABS: Basophils % 0.1 %; Hematocrit 35.4 % (35.3-44.9); Hemoglobin 10.1 g/dL (11.5-15.4); Immature Granulocytes % 0.7 % (0-4); Immature Platelets 2.5 % (1.1-6.1); Lymphocytes # 0.2 K/mcL (0.6-4.6); Lymphocytes % 1.6 %; Mean Corpuscular HGB Conc 28.5 g/dL (31.6-35.5); Mean Corpuscular Hemoglobin 27.7 pg (28.0-33.3); Mean Corpuscular Volume 97.3 fL (83.0-100.0); Mean Platelet Volume 9.1 fL (9.4-12.4); Monocytes # 0.8 K/mcL (0.0-1.3); Monocytes % 6.2 %; Neutrophils # 12.3 K/mcL (1.6-8.9); Platelet Count 426 K/mcL (140-400); Red Blood Count 3.64 M/mcL (3.82-4.97); Red Cell Distribution Width 12.8 % (11.5-14.5); Segmented Neutrophils % 91.4 %
[2016-11-06 06:13] LABS: Platelet Estimate Increased (Normal)
[2016-11-06 06:14] LABS: Basophilic Stippling 1+ (Not Present); Polychromasia 1+ (Not Present)
[2016-11-06] MEDS: Budesonide/Formoterol 160/4.5 MDI IH SCH ×2 (07:49→20:52)
[2016-11-06] MEDS: Aspirin Enteric Coated 81 MG Tablet PO SCH (08:10)
[2016-11-06] MEDS: FLUoxetine 20 MG CAPSULE PO SCH (08:11)
--- NOTE | 2016-11-06 08:49 | Pulmonology Progress Note ---
<Lianne Nix - Last Filed: 11/06/16 15:41> Date of Encounter: 11/06/16 Time of Encounter: 08:42 Assessment and Plan (1) Acute on chronic respiratory failure with hypoxia and hypercapnia Current Visit: No Status: Acute Acute on chronic respiratory failure Patient has severe COPD on home O2. She has had multiple admissions for COPD exacerbation. Chronically hypercapnic with baseline CO2 in the 90s. Last ABG showed a CO2 of 94, improved from admission Worsening respiratory status overnight requiring BIPAP with FiO2 of 45%. Patient is DNI - does not want to be intubated. Palliative care consulted for discussions about hospice. She qualifies based on her severe COPD. Continue BiPAP. Ativan given to help patient relax and tolerate BiPAP Consult placed to forensic social worker. Patient has significant disease and severe symptoms despite maximally therapeutic interventions. (2) Acute exacerbation of chronic obstructive pulmonary disease (COPD) Current Visit: No Status: Acute History of severe COPD requiring home O2 CXR showed flattened diaphragm with increased vascular congestion Patient had been unable to get BiPAP at home. Continue BiPAP. Patient will need BiPAP qualification prior to discharge IV methylprednisolone 60mg every 6 hours schedules Zithromax day 3 Scheduled DuoNebs every 4 hours (3) Altered mental state Current Visit: No Status: Acute Presented with altered mental status - improving Likely secondary to acute on chronic hypercapnic respiratory failure secondary to COPD exacerbation CT head negative for acute intracranial abnormality Today, patient anxious but answered questions Careful with benzodiazapines and avoid sedation Qualifiers: Altered mental status type: somnolence Qualified Code(s): R40.0 - Somnolence (4) DVT prophylaxis Current Visit: No Status: Acute Heparin for DVT prophylaxis Subjective Principal diagnosis: Acute respiratory failure secondary to severe COPD Interval history: Overnight patient with worsening respiratory distress and was placed on BiPAP. Patient was seen by overnight hospitalist who confirmed that patient is DRKendall-TIMOTEO , DNI. She was given several doses of ativan to decrease anxiety/agitation. Patient seen and examined this morning. Afebrile overnight. She has been tachycardic overnight 100-125, respiratory rate 18-21, blood pressure elevated 180s/80s. This morning patient is still on the BiPAP with FiO2 requirement increasing to 45%. O2 saturation around 92% with increased work of breathing despite BiPAP. She is anxious but does answer questions. She states that she feels her breathing is worse and that she isn't sure the BiPAP is helping. One exam, lung grossly diminished bilaterally with no rhonchi or wheezing noted. Respiratory rate 27 and labored. Objective PUL Vital signs: Last Vital Signs Temp 97.5 F L 11/06/16 07:28 Pulse 112 11/06/16 07:28 Resp 27 11/06/16 07:28 BP 120/89 11/06/16 07:28 Pulse Ox 92 11/06/16 07:28 General appearance: appears uncomfortable, other (anxious) Eyes: nonicteric ENT: oropharynx moist, other (BiPAP mask inplace) Effort: mildly labored Auscultation: bilateral: diminished breath sounds Cardiovascular: other (Tachycardic) Gastrointestinal: other (distended) Integumentary: normal Extremities: no cyanosis, no edema non-focal exam anxious Results - Laboratory Findings CBC and BMP: 11/06/16 05:44 11/06/16 04:09 ABG ABG pH 7.41 pH Units (7.32-7.45) 11/05/16 05:11 ABG pCO2 94 mmHg (35-45) H* 11/05/16 05:11 ABG pO2 68 mmHg (85-104) L 11/05/16 05:11 ABG O2 Saturation 93 % (95-98) L 11/05/16 05:11 Abnormal lab findings: Abnormal lab results WBC 13.5 K/mcL (4.3-11.1) H D 11/06/16 05:44 RBC 3.64 M/mcL (3.82-4.97) L 11/06/16 05:44 Hgb 10.1 g/dL (11.5-15.4) L D 11/06/16 05:44 MCH 27.7 pg (28.0-33.3) L 11/06/16 05:44 MCHC 28.5 g/dL (31.6-35.5) L 11/06/16 05:44 Plt Count 426 K/mcL (140-400) H D 11/06/16 05:44 MPV 9.1 fL (9.4-12.4) L 11/06/16 05:44 Neutrophils # 12.3 K/mcL (1.6-8.9) H 11/06/16 05:44 Lymphocytes # 0.2 K/mcL (0.6-4.6) L 11/06/16 05:44 Platelet Estimate Increased (Normal) H 11/06/16 05:44 Polychromasia 1+ (Not Present) A 11/06/16 05:44 Hypochromasia Present (Not Present) A 11/04/16 15:37 Basophilic Stippling 1+ (Not Present) A 11/06/16 05:44 ABG pCO2 94 mmHg (35-45) H* 11/05/16 05:11 ABG pO2 68 mmHg (85-104) L 11/05/16 05:11 ABG HCO3 59.6 mEQ/L (21-27) H 11/05/16 05:11 ABG Total CO2 62.5 mEq/L (20-26) H 11/05/16 05:11 ABG O2 Saturation 93 % (95-98) L 11/05/16 05:11 ABG Base Excess 30.1 mEq/L (-2.0 to 3.0) H 11/05/16 05:11 VBG pH 7.31 pH Units (7.32-7.42) L 11/04/16 15:37 VBG pCO2 121 mmHg (41-51) H 11/04/16 15:37 VBG pO2 50 mmHg (25-40) H 11/04/16 15:37 VBG HCO3 60.9 mEq/L (21-27) H 11/04/16 15:37 Chloride 86 mEq/L (98-109) L 11/06/16 04:09 Carbon Dioxide 41 mEq/L (19-29) H* 11/06/16 04:09 BUN 25 mg/dL (7-20) H D 11/06/16 04:09 BUN/Creatinine Ratio 37 (6-26) H 11/06/16 04:09 Glucose 181 mg/dL (70-99) H 11/06/16 04:09 POC Glucose 168 (58-89) H 11/04/16 17:28 Ionized Calcium 1.12 mmol/L (1.15-1.35) L 11/06/16 04:09 Phosphorus 5.4 mg/dL (2.3-4.7) H 11/06/16 04:09 - Clinical Findings Intake & Output: Intake & Output 11/05/16 11/06/16 11/06/16 23:59 07:59 15:59 Intake Total 1000 / 1000 Output Total 250 / 250 Balance 750 / 750 Weight 69 kg Consult Discharge Plan - Plan Referrals: Reanna Pagan MD [Primary Care Provider] - <Migel Brown W - Last Filed: 11/06/16 17:39> Date of Encounter: 11/06/16 Objective PUL Vital signs: Last Vital Signs Temp 97.0 F L 11/06/16 15:28 Pulse 110 11/06/16 17:04 Resp 22 11/06/16 16:28 BP 136/72 11/06/16 15:28 Pulse Ox 90 11/06/16 16:28 Results - Laboratory Findings CBC and BMP: 11/06/16 05:44 11/06/16 04:09 ABG ABG pH 7.41 pH Units (7.32-7.45) 11/05/16 05:11 ABG pCO2 94 mmHg (35-45) H* 11/05/16 05:11 ABG pO2 68 mmHg (85-104) L 11/05/16 05:11 ABG O2 Saturation 93 % (95-98) L 11/05/16 05:11 Abnormal lab findings: Abnormal lab results WBC 13.5 K/mcL (4.3-11.1) H D 11/06/16 05:44 RBC 3.64 M/mcL (3.82-4.97) L 11/06/16 05:44 Hgb 10.1 g/dL (11.5-15.4) L D 11/06/16 05:44 MCH 27.7 pg (28.0-33.3) L 11/06/16 05:44 MCHC 28.5 g/dL (31.6-35.5) L 11/06/16 05:44 Plt Count 426 K/mcL (140-400) H D 11/06/16 05:44 MPV 9.1 fL (9.4-12.4) L 11/06/16 05:44 Neutrophils # 12.3 K/mcL (1.6-8.9) H 11/06/16 05:44 Lymphocytes # 0.2 K/mcL (0.6-4.6) L 11/06/16 05:44 Platelet Estimate Increased (Normal) H 11/06/16 05:44 Polychromasia 1+ (Not Present) A 11/06/16 05:44 Hypochromasia Present (Not Present) A 11/04/16 15:37 Basophilic Stippling 1+ (Not Present) A 11/06/16 05:44 ABG pCO2 94 mmHg (35-45) H* 11/05/16 05:11 ABG pO2 68 mmHg (85-104) L 11/05/16 05:11 ABG HCO3 59.6 mEQ/L (21-27) H 11/05/16 05:11 ABG Total CO2 62.5 mEq/L (20-26) H 11/05/16 05:11 ABG O2 Saturation 93 % (95-98) L 11/05/16 05:11 ABG Base Excess 30.1 mEq/L (-2.0 to 3.0) H 11/05/16 05:11 VBG pH 7.31 pH Units (7.32-7.42) L 11/04/16 15:37 VBG pCO2 121 mmHg (41-51) H 11/04/16 15:37 VBG pO2 50 mmHg (25-40) H 11/04/16 15:37 VBG HCO3 60.9 mEq/L (21-27) H 11/04/16 15:37 Chloride 86 mEq/L (98-109) L 11/06/16 04:09 Carbon Dioxide 41 mEq/L (19-29) H* 11/06/16 04:09 BUN 25 mg/dL (7-20) H D 11/06/16 04:09 BUN/Creatinine Ratio 37 (6-26) H 11/06/16 04:09 Glucose 181 mg/dL (70-99) H 11/06/16 04:09 POC Glucose 168 (58-89) H 11/04/16 17:28 Ionized Calcium 1.12 mmol/L (1.15-1.35) L 11/06/16 04:09 Phosphorus 5.4 mg/dL (2.3-4.7) H 11/06/16 04:09 - Clinical Findings Intake & Output: Intake & Output 11/06/16 11/06/16 11/06/16 07:59 15:59 23:59 Intake Total 100 / 100 Output Total 400 / 400 Balance -300 / -300 Weight 69 kg - Attending Attestation I examined this patient and my medical decision-making was reviewed with the SUPERVISOR DRYING/PA/Advanced Practice Nurse/Resident Physician. I agree with the documented findings, disposition and treatment plan as described except to the extent set forth below. Patient with end-stage COPD with acute exacerbation overall prognosis extremely poor agree with and appreciate ongoing discussion with palliative care team I would recommend transition to hospice. I am available to meet with family when meeting has been arranged by palliative care team. Rest of recommendations per resident note.
[2016-11-06] MEDS: *HR* Morphine 2 MG/ML SYRINGE IVP PRN ×3 (09:25→20:27)
--- NOTE | 2016-11-06 11:35 | Electrocardiograph Report ---
[place] [id number] Test Date: 2016-11-05 Pat Name: Dior Gaines Department: 110 Room: 2N10 Gender: F Research Technologist: HARRY : 1950 Requested By: Quinn Simon Order Number: [id number] Reading MD: Adilene Hurtado Measurements Intervals [place] Rate: 126 P: 90 AR: 132 QRS: 25 QRSD: 78 T: 59 QT: 291 QTc: 366 Interpretive Statements SINUS TACHYCARDIA WITH OCCASIONAL SUPRAVENTRICULAR PREMATURE COMPLEXES BORDERLINE VOLTAGE CRITERIA FOR LVH ABNORMAL RHYTHM ECG Electronically Signed On 11-06-2016 11:34:20 EDT by Adilene Hurtado
[2016-11-06] MEDS ORDERED: Ondansetron 4 MG/2 ML VIAL IVP PRN (12:09)
[2016-11-06] MEDS: (Roflumilast [Daliresp] 500 MCG) PO SCH (12:16)
--- NOTE | 2016-11-06 14:52 | Palliative Progress Note ---
Date of Encounter: 11/06/16 Time of Encounter: 09:15 - Assessment and plan (1) Dyspnea Current Visit: No Status: Chronic Assessment and plan: Steroids, DuoNebs, Symbicort, Daliresp, Theophylline per hospitalist. Morphine 2mg IV every 4 hours as needed for uncontrolled symptoms. Patient appears to tolerate well. Consider adding long acting opioid for dyspnea management pending goals of care discussion. Plan for family meeting with daughters (SUE Saunders) tomorrow (11/07/16) to discuss hospice care. Family (isabell Cantu and Lopez) well aware of the critical nature of their mother. Qualifiers: Dyspnea type: dyspnea on exertion Qualified Code(s): R06.09 - Other forms of dyspnea (2) COPD (chronic obstructive pulmonary disease) Current Visit: No Status: Acute Assessment and plan: Management per hospitalist. Qualifiers: COPD type: COPD with acute exacerbation Qualified Code(s): J44.1 - Chronic obstructive pulmonary disease with (acute) exacerbation (3) Acute on chronic respiratory failure with hypercapnia Current Visit: No Status: Acute Assessment and plan: Management per pulmonology. Patient's family aware of risks//benefits/ indications of BIPAP therapy. (4) Goals of care, counseling/discussion Current Visit: No Status: Acute Assessment and plan: Plan for family meeting with daughters (Chip) tomorrow (11/07/16) to discuss hospice care. This had been discussed during prior admissions, but Ms. Gaines was not interested in hospice at that time. Her condition has deteriorated since June. (5) Anxiety about health Current Visit: No Status: Acute Assessment and plan: Lorazepam 0.5mg IV every 4 hours as needed for anxiety/agitation May consider returning to home medication of alprazolam if the lorazepam causes increased agitation (there was a concern for this during June admission). Will continue to monitor. - Time Spent With Patient Total time spent is greater than 50% in coordination of care (as documented) at patient's floor/unit and/or counseling patient: - Subjective Interval history: Ms. Gaines is lying in bed with family (Caden) at bedside. She is on the biPAP and remains restless. Nursing staff administered Morphine and lorazepam during visit and patient tolerated well. Ms. Gaines is unable to participate in conversation due to mental status and medications. DaughterJessica Alondra reports an increase in restlessness when compared to prior days. Her overall appetite is poor with minimal oral intake over the past week. Daughter reports having some end of life conversations with Ms. Gaines recently. - Constitutional Vitals: Abnormal lab results WBC 13.5 K/mcL (4.3-11.1) H D 11/06/16 05:44 RBC 3.64 M/mcL (3.82-4.97) L 11/06/16 05:44 Hgb 10.1 g/dL (11.5-15.4) L D 11/06/16 05:44 MCH 27.7 pg (28.0-33.3) L 11/06/16 05:44 MCHC 28.5 g/dL (31.6-35.5) L 11/06/16 05:44 Plt Count 426 K/mcL (140-400) H D 11/06/16 05:44 MPV 9.1 fL (9.4-12.4) L 11/06/16 05:44 Neutrophils # 12.3 K/mcL (1.6-8.9) H 11/06/16 05:44 Lymphocytes # 0.2 K/mcL (0.6-4.6) L 11/06/16 05:44 Platelet Estimate Increased (Normal) H 11/06/16 05:44 Polychromasia 1+ (Not Present) A 11/06/16 05:44 Hypochromasia Present (Not Present) A 11/04/16 15:37 Basophilic Stippling 1+ (Not Present) A 11/06/16 05:44 ABG pCO2 94 mmHg (35-45) H* 11/05/16 05:11 ABG pO2 68 mmHg (85-104) L 11/05/16 05:11 ABG HCO3 59.6 mEQ/L (21-27) H 11/05/16 05:11 ABG Total CO2 62.5 mEq/L (20-26) H 11/05/16 05:11 ABG O2 Saturation 93 % (95-98) L 11/05/16 05:11 ABG Base Excess 30.1 mEq/L (-2.0 to 3.0) H 11/05/16 05:11 VBG pH 7.31 pH Units (7.32-7.42) L 11/04/16 15:37 VBG pCO2 121 mmHg (41-51) H 11/04/16 15:37 VBG pO2 50 mmHg (25-40) H 11/04/16 15:37 VBG HCO3 60.9 mEq/L (21-27) H 11/04/16 15:37 Chloride 86 mEq/L (98-109) L 11/06/16 04:09 Carbon Dioxide 41 mEq/L (19-29) H* 11/06/16 04:09 BUN 25 mg/dL (7-20) H D 11/06/16 04:09 BUN/Creatinine Ratio 37 (6-26) H 11/06/16 04:09 Glucose 181 mg/dL (70-99) H 11/06/16 04:09 POC Glucose 168 (58-89) H 11/04/16 17:28 Ionized Calcium 1.12 mmol/L (1.15-1.35) L 11/06/16 04:09 Phosphorus 5.4 mg/dL (2.3-4.7) H 11/06/16 04:09 General appearance: Present: mild distress. Absent: cooperative Exam: 66 year old female appearing chronically ill. She is restless on the BiPAP and has a pale complexion. - Head Head exam: Present: atraumatic - Eye Eye exam: Present: EOMI - ENT ENT exam: Present: mucous membranes dry - Respiratory Respiratory exam: Present: decreased breath sounds, respiratory distress Additional comments: lung sounds very tight with minimal air exchange. - Cardiovascular Cardiovascular exam: Present: irregular rhythm, tachycardia - GI/Abdominal GI/Abdominal exam: Present: normal bowel sounds, soft - Extremities Exam Extremities exam: Present: normal inspection - Neurological Exam Neurological exam: Present: altered - Psychiatric Psychiatric exam: Present: agitated, anxious - Skin Skin exam: Absent: normal color (pale complexion) Palliative Quality Palliative Quality: Screen for Code Status: Yes, Screen for Goals of Care: Yes, Screen for Pain: Yes, If Pain Regimen Started, Initiate Bowel Regimen: NA, Screen for Nausea/Vomitting: Yes Code Status: 11/04/16 17:27 Resuscitation Status: Active [RES] Routine Comment: Resuscitation Status: [id number] - Labs CBC & Chem 7: 11/06/16 05:44 11/06/16 04:09 Labs: Laboratory Results - last 24 hr 11/06/16 11/06/16 11/06/16 04:09 05:05 05:44 WBC 13.5 H D RBC 3.64 L Hgb 10.1 L D Hct 35.4 MCV 97.3 MCH 27.7 L MCHC 28.5 L RDW 12.8 Plt Count 426 H D MPV 9.1 L Immature Gran % 0.7 Seg Neutrophils % 91.4 Lymphocytes % 1.6 Monocytes % 6.2 Eosinophils % 0.0 Basophils % 0.1 Neutrophils # 12.3 H Lymphocytes # 0.2 L Monocytes # 0.8 Eosinophils # 0.0 Basophils # 0.0 Platelet Estimate Increased H Immature Plt Fraction 2.5 Polychromasia 1+ A Basophilic Stippling 1+ A Sodium 140 Potassium 4.2 Chloride 86 L Carbon Dioxide 41 H* BUN 25 H D Creatinine 0.67 Est GFR ( Amer) > 60 Est GFR (Non-Af Amer) > 60 BUN/Creatinine Ratio 37 H Glucose 181 H Calculated Osmolality 299 Calcium 9.5 Ionized Calcium 1.12 L Phosphorus 5.4 H Magnesium 2.4 Specimen Rejected Miscellaneous - ABG Interpretation ABG results: ABG ABG pH 7.41 pH Units (7.32-7.45) 11/05/16 05:11 ABG pCO2 94 mmHg (35-45) H* 11/05/16 05:11 ABG pO2 68 mmHg (85-104) L 11/05/16 05:11 ABG O2 Saturation 93 % (95-98) L 11/05/16 05:11 Consult Discharge Plan - Plan Referrals: Reanna Pagan MD [Primary Care Provider] -
--- NOTE | 2016-11-06 17:49 | Internal Med Progress Note ---
Date of Encounter: 11/06/16 Time of Encounter: 08:00 - Assessment and plan (1) Acute on chronic respiratory failure with hypercapnia Current Visit: Yes Status: Acute Assessment and plan: Acute exacerbation of COPD in the setting of end-stage COPD (patient has chronic respiratory failure with baseline CO2 in the 90s). She has had multiple admissions due to COPD exacerbation in the past few months. Chest x-ray showed flattened diaphragm with increased vascular congestion. On admission, patient required ICU care and BiPAP. She received nebulizations, IV glucocorticoid steroids, Mucinex and empiric antibiotics with minimal improvement of her symptoms. Patient aware of her diagnosis, treatment options and poor prognosis. She wished to be DNR DNI comfort care arrest. Palliative service is following and will plan for a family meeting tomorrow. (2) COPD exacerbation Current Visit: Yes Status: Acute Assessment and plan: Plan as above. (3) Acute metabolic encephalopathy Current Visit: Yes Status: Acute Assessment and plan: Secondary to chronic hypercapnic respiratory failure and COPD exacerbation. CT head shows no acute intracranial process. Improved compared to admission. She is alert and answering questions appropriately. (4) Goals of care, counseling/discussion Current Visit: Yes Status: Acute Assessment and plan: Appreciate palliative input. Plan for family meeting tomorrow to discuss hospice care. - Subjective Interval history: patient feels very short of breath even at rest and while wearing BIPAP - Constitutional Vitals: Temp Pulse Resp BP Pulse Ox 97.0 F L 110 22 136/72 90 11/06/16 15:28 11/06/16 17:04 11/06/16 16:28 11/06/16 15:28 11/06/16 16:28 General appearance: Present: A&O X 0, mild distress, answers questions appropriately - Respiratory Respiratory exam: Present: decreased breath sounds (very diminished breath sonds ) - Cardiovascular Cardiovascular exam: Present: tachycardia - GI/Abdominal GI/Abdominal exam: Present: normal bowel sounds, soft. Absent: distended, tenderness - Extremities Exam Extremities exam: Absent: pedal edema - Back Exam Back exam: Absent: CVA tenderness (L), CVA tenderness (R) - Neurological Exam Neurological exam: Present: alert, no focal deficits. Absent: facial droop, speech deficit - Skin Skin exam: Absent: rash Internal Medicine: Result - Labs CBC & Chem 7: 11/06/16 05:44 11/06/16 04:09 Labs: Short CBC 11/06/16 Range/Units 05:44 WBC 13.5 H D (4.3-11.1) K/mcL Hgb 10.1 L D (11.5-15.4) g/dL Hct 35.4 (35.3-44.9) % Plt Count 426 H D (140-400) K/mcL Neutrophils # 12.3 H (1.6-8.9) K/mcL BMP 11/06/16 04:09 Sodium 140 Potassium 4.2 Chloride 86 L Carbon Dioxide 41 H* BUN 25 H D Creatinine 0.67 Glucose 181 H Calcium 9.5 - ABG Interpretation ABG results: ABG ABG pH 7.41 pH Units (7.32-7.45) 11/05/16 05:11 ABG pCO2 94 mmHg (35-45) H* 11/05/16 05:11 ABG pO2 68 mmHg (85-104) L 11/05/16 05:11 ABG O2 Saturation 93 % (95-98) L 11/05/16 05:11 Consult Discharge Plan - Plan Referrals: Reanna Pagan MD [Primary Care Provider] -
[2016-11-06] MEDS ORDERED: MethylPREDNISolone 40 MG/ML VIAL ONE (18:13)
[2016-11-06] MEDS ORDERED: methylPREDNISolone 125 MG/2 ML VIAL ONE (18:13)
[2016-11-06] MEDS: Azithromycin 500 MG in D5% in Water 250 ML IVPB SCH (20:26)
[2016-11-07] MEDS: Ipratropium/Albuterol Neb 3 ML IH SCH ×7 (00:13→23:54)
[2016-11-07 04:51] LABS: Hemoglobin 10.4 g/dL (11.5-15.4)
[2016-11-07 04:53] LABS: Basophils % 0.1 %; Immature Granulocytes % 1.7 % (0-4); Lymphocytes # 0.6 K/mcL (0.6-4.6); Lymphocytes % 3.9 %; Mean Corpuscular HGB Conc 28.1 g/dL (31.6-35.5); Mean Corpuscular Hemoglobin 27.9 pg (28.0-33.3); Mean Corpuscular Volume 99.2 fL (83.0-100.0); Mean Platelet Volume 9.6 fL (9.4-12.4); Monocytes # 1.5 K/mcL (0.0-1.3); Monocytes % 10.8 %; Neutrophils # 11.8 K/mcL (1.6-8.9); Platelet Count 331 K/mcL (140-400); Red Blood Count 3.73 M/mcL (3.82-4.97); Red Cell Distribution Width 12.6 % (11.5-14.5); Segmented Neutrophils % 83.5 %
[2016-11-07 05:01] LABS: BUN/Creatinine Ratio 44 (6-26); Blood Urea Nitrogen 34 mg/dL (7-20); Calcium 9.1 mg/dL (8.6-10.8); Carbon Dioxide 31 mEq/L (19-29); Chloride 90 mEq/L (98-109); Glucose 81 mg/dL (70-99); Osmolality,Calculated 293 (280-300); Sodium 138 mEq/L (136-145); eGFR For African Americans > 60 (> 60); eGFR For Non-African Americans > 60 (> 60)
[2016-11-07] MEDS: *HR* Morphine 2 MG/ML SYRINGE IVP PRN (05:03)
[2016-11-07] MEDS: *HR* Heparin 5,000 UNIT/ML VIAL SQ SCH ×2 (05:04→18:06)
[2016-11-07 05:08] LABS: Ionized Calcium 1.03 mmol/L (1.15-1.35)
[2016-11-07] MEDS: *HR* LORazepam 2 MG/ML VIAL IVP PRN (05:13)
[2016-11-07 05:20] LABS: Platelet Estimate Normal (Normal)
--- NOTE | 2016-11-07 07:09 | Pulmonology Progress Note ---
Date of Encounter: 11/07/16 Time of Encounter: 07:09 Assessment and Plan (1) Acute exacerbation of chronic obstructive pulmonary disease (COPD) Current Visit: No Status: Acute Patient presenting with acute COPD exacerbation in the context of end-stage COPD. She is essentially dependent on noninvasive positive pressure ventilation at this time. I had a long discussion with the healthcare power of musical instrument maker her daughter along with the patient's son, palliative care team members , and nursing staff where the patient's family were all clear that she did not want to be kept alive on machines. I explained that I felt that this was a terminal condition and that most reasonable approach would be to pursue comfort measures and hospice setting and daughter agreed along with the son and palliative care is making recommendations for referral this time including intermittent use of NIPPV as needed. Pulmonary will sign off at this time please call with any questions (2) Acute on chronic respiratory failure with hypoxia and hypercapnia Current Visit: No Status: Acute (3) Goals of care, counseling/discussion Current Visit: Yes Status: Acute Subjective Principal diagnosis: Acute respiratory failure secondary to severe COPD Interval history: Patient continues to be BiPAP dependent very somnolent with anti-anxiety medications and narcotics for work of breathing she is unable to consistently answer my questions are interact to my prompting Objective PUL Vital signs: Last Vital Signs Temp 98 F 11/07/16 04:15 Pulse 121 11/07/16 04:15 Resp 21 11/07/16 04:17 BP 131/65 11/07/16 04:15 Pulse Ox 94 11/07/16 04:17 General appearance: lethargic Auscultation: bilateral: diminished breath sounds, wheezes Cardiovascular: regular rate and rhythm Extremities: edema Results - Laboratory Findings CBC and BMP: 11/07/16 03:57 11/07/16 08:36 ABG ABG pH 7.41 pH Units (7.32-7.45) 11/05/16 05:11 ABG pCO2 94 mmHg (35-45) H* 11/05/16 05:11 ABG pO2 68 mmHg (85-104) L 11/05/16 05:11 ABG O2 Saturation 93 % (95-98) L 11/05/16 05:11 Abnormal lab findings: Abnormal lab results WBC 14.1 K/mcL (4.3-11.1) H 11/07/16 03:57 RBC 3.73 M/mcL (3.82-4.97) L 11/07/16 03:57 Hgb 10.4 g/dL (11.5-15.4) L 11/07/16 03:57 MCH 27.9 pg (28.0-33.3) L 11/07/16 03:57 MCHC 28.1 g/dL (31.6-35.5) L 11/07/16 03:57 Neutrophils # 11.8 K/mcL (1.6-8.9) H 11/07/16 03:57 Monocytes # 1.5 K/mcL (0.0-1.3) H 11/07/16 03:57 Polychromasia 1+ (Not Present) A 11/06/16 05:44 Hypochromasia Present (Not Present) A 11/04/16 15:37 Basophilic Stippling 1+ (Not Present) A 11/06/16 05:44 ABG pCO2 94 mmHg (35-45) H* 11/05/16 05:11 ABG pO2 68 mmHg (85-104) L 11/05/16 05:11 ABG HCO3 59.6 mEQ/L (21-27) H 11/05/16 05:11 ABG Total CO2 62.5 mEq/L (20-26) H 11/05/16 05:11 ABG O2 Saturation 93 % (95-98) L 11/05/16 05:11 ABG Base Excess 30.1 mEq/L (-2.0 to 3.0) H 11/05/16 05:11 VBG pH 7.31 pH Units (7.32-7.42) L 11/04/16 15:37 VBG pCO2 121 mmHg (41-51) H 11/04/16 15:37 VBG pO2 50 mmHg (25-40) H 11/04/16 15:37 VBG HCO3 60.9 mEq/L (21-27) H 11/04/16 15:37 Potassium 5.0 mEq/L (3.5-4.5) H 11/07/16 03:57 Chloride 90 mEq/L (98-109) L 11/07/16 03:57 Carbon Dioxide 31 mEq/L (19-29) H 11/07/16 03:57 BUN 34 mg/dL (7-20) H 11/07/16 03:57 BUN/Creatinine Ratio 44 (6-26) H 11/07/16 03:57 POC Glucose 168 (58-89) H 11/04/16 17:28 Ionized Calcium 1.03 mmol/L (1.15-1.35) L 11/07/16 03:57 Phosphorus 5.4 mg/dL (2.3-4.7) H 11/06/16 04:09 - Clinical Findings Intake & Output: Intake & Output 11/06/16 11/06/16 11/07/16 15:59 23:59 07:59 Intake Total 100 / 100 Output Total 400 / 400 350 / 350 150 / 150 Balance -300 / -300 -350 / -350 -150 / -150 Weight 67.8 kg Consult Discharge Plan - Plan Referrals: Reanna Pagan MD [Primary Care Provider] - 11/15/16 11:15 am
[2016-11-07] MEDS: Budesonide/Formoterol 160/4.5 MDI IH SCH ×2 (07:52→20:17)
[2016-11-07] MEDS: Aspirin Enteric Coated 81 MG Tablet PO SCH (08:05)
[2016-11-07] MEDS: (Roflumilast [Daliresp] 500 MCG) PO SCH (08:05)
[2016-11-07] MEDS: MethylPREDNISolone 40 MG/ML VIAL IVP SCH (08:05)
[2016-11-07] MEDS: FLUoxetine 20 MG CAPSULE PO SCH (08:05)
--- NOTE | 2016-11-07 10:49 | Palliative Progress Note ---
Date of Encounter: 11/07/16 Time of Encounter: 09:30 - Assessment and plan (1) Dyspnea Current Visit: No Status: Chronic Assessment and plan: Patient remains on bipap, supportive oxygen, bronchodilators, and has been receiving low dose Morphine for air hunger and breathlessness. Has received x 4 last 24 hous. Monitor. This can be transitioned to Roxanol prior to discharge. Qualifiers: Dyspnea type: dyspnea on exertion Qualified Code(s): R06.09 - Other forms of dyspnea (2) Anxiety about health Current Visit: No Status: Acute Assessment and plan: Receiving IV Ativan PRN for anxiety. Received x2 last 24 hours. Continue and monitor (3) Counseling regarding advanced care planning and goals of care Current Visit: Yes Status: Acute Assessment and plan: Met with pt, pt daughter Alondra, son Lopez, Dr. Brown, post framer re: goals of care. Clinical update given per recreation aide. Daughter leaning towards transition to comfort care and hospice, however, does state that she would desire her mother be placed at [facility] for her care. Other daughter Belinda to come this afternoon and further discuss. If she is in agreement, will anticipate transition to ECF with hospice tomorrow. Provided emotional support and stayed to answer questions. - Time Spent With Patient Total time spent is greater than 50% in coordination of care (as documented) at patient's floor/unit and/or counseling patient: 25 - 35 minutes - Subjective Interval history: Patient drowsy on bipap. Does awaken periodically, asking for water. Denies pain/discomfort. States breathing "ok". Daughter Alondra and son Lopez at bedside. - Constitutional Vitals: Abnormal lab results WBC 14.1 K/mcL (4.3-11.1) H 11/07/16 03:57 RBC 3.73 M/mcL (3.82-4.97) L 11/07/16 03:57 Hgb 10.4 g/dL (11.5-15.4) L 11/07/16 03:57 MCH 27.9 pg (28.0-33.3) L 11/07/16 03:57 MCHC 28.1 g/dL (31.6-35.5) L 11/07/16 03:57 Neutrophils # 11.8 K/mcL (1.6-8.9) H 11/07/16 03:57 Monocytes # 1.5 K/mcL (0.0-1.3) H 11/07/16 03:57 Polychromasia 1+ (Not Present) A 11/06/16 05:44 Hypochromasia Present (Not Present) A 11/04/16 15:37 Basophilic Stippling 1+ (Not Present) A 11/06/16 05:44 ABG pCO2 94 mmHg (35-45) H* 11/05/16 05:11 ABG pO2 68 mmHg (85-104) L 11/05/16 05:11 ABG HCO3 59.6 mEQ/L (21-27) H 11/05/16 05:11 ABG Total CO2 62.5 mEq/L (20-26) H 11/05/16 05:11 ABG O2 Saturation 93 % (95-98) L 11/05/16 05:11 ABG Base Excess 30.1 mEq/L (-2.0 to 3.0) H 11/05/16 05:11 VBG pH 7.31 pH Units (7.32-7.42) L 11/04/16 15:37 VBG pCO2 121 mmHg (41-51) H 11/04/16 15:37 VBG pO2 50 mmHg (25-40) H 11/04/16 15:37 VBG HCO3 60.9 mEq/L (21-27) H 11/04/16 15:37 Potassium 4.6 mEq/L (3.5-4.5) H 11/07/16 08:36 Chloride 90 mEq/L (98-109) L 11/07/16 03:57 Carbon Dioxide 31 mEq/L (19-29) H 11/07/16 03:57 BUN 34 mg/dL (7-20) H 11/07/16 03:57 BUN/Creatinine Ratio 44 (6-26) H 11/07/16 03:57 POC Glucose 168 (58-89) H 11/04/16 17:28 Ionized Calcium 1.03 mmol/L (1.15-1.35) L 11/07/16 03:57 Phosphorus 5.4 mg/dL (2.3-4.7) H 11/06/16 04:09 General appearance: Present: mild distress - Respiratory Respiratory exam: Present: decreased breath sounds - Cardiovascular Cardiovascular exam: Present: +S1, +S2 - GI/Abdominal GI/Abdominal exam: Present: normal bowel sounds, soft - Additional comments: Manzo patent and intact with yellow urine - Extremities Exam Extremities exam: Present: normal capillary refill, normal inspection - Neurological Exam Additional comments: Patient drowsy this am, difficult to keep awake. Alert and oriented x2. Can follow simple commands - Skin Skin exam: Present: dry, warm Palliative Quality Palliative Quality: Screen for Code Status: Yes, Screen for Goals of Care: Yes, Screen for Pain: Yes, If Pain Regimen Started, Initiate Bowel Regimen: NA, Screen for Nausea/Vomitting: Yes Code Status: 11/04/16 17:27 Resuscitation Status: Active [RES] Routine Comment: Resuscitation Status: [id number] - Labs CBC & Chem 7: 11/07/16 03:57 11/07/16 08:36 Labs: Laboratory Results - last 24 hr 11/07/16 11/07/16 11/07/16 03:57 03:57 08:36 WBC 14.1 H RBC 3.73 L Hgb 10.4 L Hct 37.0 MCV 99.2 MCH 27.9 L MCHC 28.1 L RDW 12.6 Plt Count 331 MPV 9.6 Immature Gran % 1.7 Seg Neutrophils % 83.5 Lymphocytes % 3.9 Monocytes % 10.8 Eosinophils % 0.0 Basophils % 0.1 Neutrophils # 11.8 H Lymphocytes # 0.6 Monocytes # 1.5 H Eosinophils # 0.0 Basophils # 0.0 Platelet Estimate Normal Sodium 138 Potassium 5.0 H 4.6 H Chloride 90 L Carbon Dioxide 31 H BUN 34 H Creatinine 0.77 Est GFR ( Amer) > 60 Est GFR (Non-Af Amer) > 60 BUN/Creatinine Ratio 44 H Glucose 81 Calculated Osmolality 293 Calcium 9.1 Ionized Calcium 1.03 L - ABG Interpretation ABG results: ABG ABG pH 7.41 pH Units (7.32-7.45) 11/05/16 05:11 ABG pCO2 94 mmHg (35-45) H* 11/05/16 05:11 ABG pO2 68 mmHg (85-104) L 11/05/16 05:11 ABG O2 Saturation 93 % (95-98) L 11/05/16 05:11 Consult Discharge Plan - Plan Referrals: Reanna Pagan MD [Primary Care Provider] - 11/15/16 11:15 am
--- NOTE | 2016-11-07 13:14 | Event Note ---
Date of Encounter: 11/07/16 Time of Encounter: 13:00 follow up goals of care meeting with pt daughter Alondra, and alternate POA daughter Belinda Duenas. After discussion, daughters decided to transition to DNRCC. They do not desire to go with bipap to ECF as they state this is not consistent with her wishes. DNRCC state form completed by POA and copies provided to family. Will transition to sublingual comfort meds. Referral called to [facility].
[2016-11-07] MEDS: Morphine Oral CONC 5 MG/0.25 ML ORAL.SYG PO PRN (15:27)
--- NOTE | 2016-11-07 17:41 | Internal Med Progress Note ---
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 She has had multiple admissions due to COPD exacerbation in the past few months. Chest x-ray showed flattened diaphragm with increased vascular congestion. On admission, patient required ICU care and BiPAP. She received nebulizations, IV glucocorticoid steroids, Mucinex and empiric antibiotics with minimal improvement of her symptoms. Patient aware of her diagnosis, treatment options and poor prognosis. She wished to be DNR DNI comfort care arrest. Appreciate pulmonology and Palliative service input. Plan for a family meeting today. (2) COPD exacerbation Current Visit: Yes Status: Acute Assessment and plan: Plan as above. (3) Anxiety Current Visit: Yes Status: Acute Assessment and plan: secondary to end-stage COPD. appreciate palliative input: ativan and morphine as needed. (4) Acute metabolic encephalopathy Current Visit: Yes Status: Acute Assessment and plan: Secondary to chronic hypercapnic respiratory failure and COPD exacerbation. CT head shows no acute intracranial process. Improved compared to admission. She is alert and answering questions appropriately. (5) Goals of care, counseling/discussion Current Visit: Yes Status: Acute Assessment and plan: Appreciate palliative input. Plan for family meeting tomorrow to discuss hospice care. - Subjective Interval history: patient is tired of wearing the bipap mask. - Constitutional Vitals: Temp Pulse Resp BP Pulse Ox 97.6 F 120 16 132/98 100 11/07/16 11:06 11/07/16 11:40 11/07/16 16:06 11/07/16 11:06 11/07/16 16:06 General appearance: Present: A&O X 0, mild distress, answers questions appropriately - Neck Neck exam general surgery: Present: supple, trachea midline. Absent: lymphadenopathy - Respiratory Respiratory exam: Present: decreased breath sounds (very diminished air entr) - Cardiovascular Cardiovascular exam: Present: RRR - GI/Abdominal GI/Abdominal exam: Present: normal bowel sounds, soft. Absent: distended, tenderness - Extremities Exam Extremities exam: Absent: pedal edema - Neurological Exam Neurological exam: Present: alert, oriented X3, no focal deficits. Absent: facial droop, speech deficit - Skin Skin exam: Absent: rash Internal Medicine: Result - Labs CBC & Chem 7: 11/07/16 03:57 11/07/16 08:36 Labs: Short CBC 11/07/16 Range/Units 03:57 WBC 14.1 H (4.3-11.1) K/mcL Hgb 10.4 L (11.5-15.4) g/dL Hct 37.0 (35.3-44.9) % Plt Count 331 (140-400) K/mcL Neutrophils # 11.8 H (1.6-8.9) K/mcL BMP 11/07/16 11/07/16 03:57 08:36 Sodium 138 Potassium 5.0 H 4.6 H Chloride 90 L Carbon Dioxide 31 H BUN 34 H Creatinine 0.77 Glucose 81 Calcium 9.1 - ABG Interpretation ABG results: ABG ABG pH 7.41 pH Units (7.32-7.45) 11/05/16 05:11 ABG pCO2 94 mmHg (35-45) H* 11/05/16 05:11 ABG pO2 68 mmHg (85-104) L 11/05/16 05:11 ABG O2 Saturation 93 % (95-98) L 11/05/16 05:11 Consult Discharge Plan - Plan Referrals: Reanna Pagan MD [Primary Care Provider] - 11/15/16 11:15 am
[2016-11-07] MEDS: *HR* LORazepam Oral Conc 2 MG/ML PO PRN (18:07)
[2016-11-07] MEDS: Azithromycin 500 MG in D5% in Water 250 ML IVPB SCH (20:17)
[2016-11-08] MEDS: *HR* LORazepam Oral Conc 2 MG/ML PO PRN (00:14)
[2016-11-08 04:40] LABS: Eosinophils % 0.1 %; Nucleated Red Blood Cells 0.3 /100 WBC (0); Red Cell Distribution Width 12.5 % (11.5-14.5)
[2016-11-08 04:41] LABS: Basophils % 0.2 %; Immature Granulocytes % 1.9 % (0-4); Lymphocytes # 0.5 K/mcL (0.6-4.6); Lymphocytes % 4.1 %; Mean Corpuscular HGB Conc 27.8 g/dL (31.6-35.5); Mean Corpuscular Hemoglobin 28.2 pg (28.0-33.3); Mean Corpuscular Volume 101.4 fL (83.0-100.0); Mean Platelet Volume 10.1 fL (9.4-12.4); Monocytes # 1.6 K/mcL (0.0-1.3); Monocytes % 13.4 %; Neutrophils # 9.3 K/mcL (1.6-8.9); Platelet Count 269 K/mcL (140-400); Red Blood Count 3.55 M/mcL (3.82-4.97); Segmented Neutrophils % 80.3 %
[2016-11-08] MEDS: Ipratropium/Albuterol Neb 3 ML IH SCH ×4 (04:47→16:32)
[2016-11-08 04:54] LABS: BUN/Creatinine Ratio 63 (6-26); Calcium 9.4 mg/dL (8.6-10.8); Chloride 84 mEq/L (98-109); Glucose 112 mg/dL (70-99); Osmolality,Calculated 301 (280-300); Potassium 5.3 mEq/L (3.5-4.5); Sodium 138 mEq/L (136-145); eGFR For African Americans > 60 (> 60); eGFR For Non-African Americans > 60 (> 60)
[2016-11-08 04:56] LABS: Blood Urea Nitrogen 52 mg/dL (7-20)
[2016-11-08 04:57] LABS: Carbon Dioxide 47 mEq/L (19-29)
[2016-11-08 05:19] LABS: Hypochromasia Present (Not Present); Microcytosis Present (Not Present)
[2016-11-08 05:20] LABS: Basophilic Stippling 1+ (Not Present); Platelet Estimate Normal (Normal)
[2016-11-08] MEDS: *HR* Heparin 5,000 UNIT/ML VIAL SQ SCH (06:11)
[2016-11-08 07:40] VITALS: BP 132/60
[2016-11-08] MEDS: Budesonide/Formoterol 160/4.5 MDI IH SCH (07:46)
[2016-11-08] MEDS: MethylPREDNISolone 40 MG/ML VIAL IVP SCH (08:54)
--- NOTE | 2016-11-08 09:40 | Palliative Progress Note ---
Date of Encounter: 11/08/16 Time of Encounter: 09:30 - Assessment and plan (1) Dyspnea Current Visit: Yes Status: Chronic Assessment and plan: Following goals of care discussion with family and palliative care team yesterday, further treatment for dyspnea will be supportive care. Discontinue BIPAP and further aggressive measures. Oral Morphine Concentrate 5mg every hour as needed. Ms. Gaines has only used one dose in the past 12 hours. Rx on file for ECF. Qualifiers: Dyspnea type: dyspnea on exertion Qualified Code(s): R06.09 - Other forms of dyspnea (2) COPD (chronic obstructive pulmonary disease) Current Visit: Yes Status: Acute Assessment and plan: Supportive care only following goals of care discussion yesterday. Qualifiers: COPD type: COPD with acute exacerbation Qualified Code(s): J44.1 - Chronic obstructive pulmonary disease with (acute) exacerbation (3) Acute on chronic respiratory failure with hypercapnia Current Visit: Yes Status: Acute Assessment and plan: Patient's family aware of risks//benefits/indications of BIPAP therapy. They have elected to discontinue BiPAP therapy as it goes against Ms. Gaines's previously known wishes. (4) Goals of care, counseling/discussion Current Visit: Yes Status: Acute Assessment and plan: Ms. Gaines will be discharged today to [facility] with [facility]. Rx on file for comfort medications. Daughter/José to meet with hospice services at 1400 today for enrollment paperwork. (5) Anxiety about health Current Visit: Yes Status: Acute Assessment and plan: Lorazepam oral concentrate 1mg every 2 hours as needed for anxiety/agitation. - Time Spent With Patient Total time spent is greater than 50% in coordination of care (as documented) at patient's floor/unit and/or counseling patient: - Subjective Interval history: Ms. Gaines is lying in bed with family (daughter-Alondra) at bedside. She has not been on biPAP since yesterday. Family has elected to stop BiPAP as it does not align with the current goals of care. Nursing staff administered Morphine and lorazepam as needed for dyspnea and restlessness. Ms. Gaines is unable to participate in conversation due to mental status. - Constitutional Vitals: Abnormal lab results WBC 11.6 K/mcL (4.3-11.1) H 11/08/16 03:49 RBC 3.55 M/mcL (3.82-4.97) L 11/08/16 03:49 Hgb 10.0 g/dL (11.5-15.4) L 11/08/16 03:49 MCV 101.4 fL (83.0-100.0) H 11/08/16 03:49 MCHC 27.8 g/dL (31.6-35.5) L 11/08/16 03:49 Neutrophils # 9.3 K/mcL (1.6-8.9) H 11/08/16 03:49 Lymphocytes # 0.5 K/mcL (0.6-4.6) L 11/08/16 03:49 Monocytes # 1.6 K/mcL (0.0-1.3) H 11/08/16 03:49 Nucleated RBCs/100 WBC 0.3 /100 WBC (0) H 11/08/16 03:49 Polychromasia 1+ (Not Present) A 11/06/16 05:44 Hypochromasia Present (Not Present) A 11/08/16 03:49 Basophilic Stippling 1+ (Not Present) A 11/08/16 03:49 Microcytosis Present (Not Present) A 11/08/16 03:49 ABG pCO2 94 mmHg (35-45) H* 11/05/16 05:11 ABG pO2 68 mmHg (85-104) L 11/05/16 05:11 ABG HCO3 59.6 mEQ/L (21-27) H 11/05/16 05:11 ABG Total CO2 62.5 mEq/L (20-26) H 11/05/16 05:11 ABG O2 Saturation 93 % (95-98) L 11/05/16 05:11 ABG Base Excess 30.1 mEq/L (-2.0 to 3.0) H 11/05/16 05:11 VBG pH 7.31 pH Units (7.32-7.42) L 11/04/16 15:37 VBG pCO2 121 mmHg (41-51) H 11/04/16 15:37 VBG pO2 50 mmHg (25-40) H 11/04/16 15:37 VBG HCO3 60.9 mEq/L (21-27) H 11/04/16 15:37 Potassium 5.3 mEq/L (3.5-4.5) H 11/08/16 03:49 Chloride 84 mEq/L (98-109) L 11/08/16 03:49 Carbon Dioxide 47 mEq/L (19-29) H* D 11/08/16 03:49 BUN 52 mg/dL (7-20) H D 11/08/16 03:49 BUN/Creatinine Ratio 63 (6-26) H 11/08/16 03:49 Glucose 112 mg/dL (70-99) H 11/08/16 03:49 POC Glucose 168 (58-89) H 11/04/16 17:28 Calculated Osmolality 301 (280-300) H 11/08/16 03:49 Ionized Calcium 1.03 mmol/L (1.15-1.35) L 11/07/16 03:57 Phosphorus 5.4 mg/dL (2.3-4.7) H 11/06/16 04:09 Exam: 66 year old female appearing chronically ill. She is unresponsive and family is at bedside. - ENT ENT exam: Present: mucous membranes dry - Respiratory Additional comments: Poor air exchange, lungs sounds severely diminished throughout - Cardiovascular Cardiovascular exam: Present: tachycardia (rate 110) - GI/Abdominal GI/Abdominal exam: Present: normal bowel sounds, soft. Absent: distended, guarding, tenderness - Additional comments: joshi catheter intact with clear yellow urine - Extremities Exam Extremities exam: Absent: pedal edema - Neurological Exam Neurological exam: Absent: alert - Psychiatric Psychiatric exam: Absent: agitated, anxious - Skin Skin exam: Present: dry Palliative Quality Palliative Quality: Screen for Code Status: Yes, Screen for Goals of Care: Yes, Screen for Pain: Yes, If Pain Regimen Started, Initiate Bowel Regimen: NA, Screen for Nausea/Vomitting: Yes Code Status: 11/04/16 17:27 Resuscitation Status: Active [RES] Routine Comment: Resuscitation Status: [id number] 11/07/16 13:11 DNR [Resuscitation Status: Active] [RES] Routine Comment: Resuscitation Status: DNR-Comfort Care - Labs CBC & Chem 7: 11/08/16 03:49 11/08/16 03:49 Labs: Laboratory Results - last 24 hr 11/08/16 11/08/16 03:49 03:49 WBC 11.6 H RBC 3.55 L Hgb 10.0 L Hct 36.0 MCV 101.4 H MCH 28.2 MCHC 27.8 L RDW 12.5 Plt Count 269 MPV 10.1 Immature Gran % 1.9 Seg Neutrophils % 80.3 Lymphocytes % 4.1 Monocytes % 13.4 Eosinophils % 0.1 Basophils % 0.2 Neutrophils # 9.3 H Lymphocytes # 0.5 L Monocytes # 1.6 H Eosinophils # 0.0 Basophils # 0.0 Nucleated RBCs/100 WBC 0.3 H Platelet Estimate Normal Hypochromasia Present A Basophilic Stippling 1+ A Microcytosis Present A Sodium 138 Potassium 5.3 H Chloride 84 L Carbon Dioxide 47 H* D BUN 52 H D Creatinine 0.82 Est GFR ( Amer) > 60 Est GFR (Non-Af Amer) > 60 BUN/Creatinine Ratio 63 H Glucose 112 H Calculated Osmolality 301 H Calcium 9.4 - ABG Interpretation ABG results: ABG ABG pH 7.41 pH Units (7.32-7.45) 11/05/16 05:11 ABG pCO2 94 mmHg (35-45) H* 11/05/16 05:11 ABG pO2 68 mmHg (85-104) L 11/05/16 05:11 ABG O2 Saturation 93 % (95-98) L 11/05/16 05:11 Consult Discharge Plan - Plan Referrals: Reanna Pagan MD [Primary Care Provider] - (PATIENT IS GOING TO [facility] NO PCP APPOINTMENT NEEDED) Prescriptions: LORazepam Oral Conc [Ativan Oral Conc] 1 mg PO Q4H PRN #15 mls PRN Reason: Agitation/restlessness Morphine Oral CONC [Roxanol] 0.25 ml PO Q1H PRN #30 ml PRN Reason: pain or dyspnea
[2016-11-08] MEDS ORDERED: Bisacodyl 10 MG RECTAL SUPPOSITORY RC SCH (10:00)
[2016-11-08] MEDS: FLUoxetine 20 MG CAPSULE PO SCH (10:37)
[2016-11-08] MEDS: Aspirin Enteric Coated 81 MG Tablet PO SCH (10:37)
--- NOTE | 2016-11-08 13:51 | Discharge Summary ---
Date of Encounter: 11/08/16 Time of Encounter: 12:00 - Discharge Diagnosis (1) Acute on chronic respiratory failure with hypercapnia Priority: Primary Status: Acute (2) COPD exacerbation Priority: Primary Status: Acute (3) Anxiety Priority: Primary Status: Acute (4) Acute metabolic encephalopathy Priority: Primary Status: Acute (5) Goals of care, counseling/discussion Priority: Primary Status: Acute - Discharge Medications Prescriptions: LORazepam Oral Conc [Ativan Oral Conc] 1 mg PO Q4H PRN #15 mls PRN Reason: Agitation/restlessness Morphine Oral CONC [Roxanol] 0.25 ml PO Q1H PRN #30 ml PRN Reason: pain or dyspnea Home Medications: Albuterol Neb [Proventil Neb] 2.5 mg IH Q2H PRN #0 inhsol 03/14/16 [Rx] Ipratropium/Albuterol Neb [Duoneb] 3 ml IH [id number] inhsol 07/21/16 [Rx] Dextran 70/Hypromellose [Artificial Tears Eye Drops] 1 drop OP DAILY PRN [History] Bisacodyl [Dulcolax] 10 mg RC DAILY supp.rect 11/08/16 [Rx] LORazepam Oral Conc [Ativan Oral Conc] 1 mg PO Q4H PRN #15 mls 11/08/16 [Rx] Morphine Oral CONC [Roxanol] 0.25 ml PO Q1H PRN #30 ml 11/08/16 [Rx] Allergies/Adverse Reactions: Allergies No Known Allergies Allergy (Verified 02/04/16 19:19) Procedures/tests Complete & Pending: Procedures Performed prior 72 hours Category Date Time Status EKG [ECG 12 lead ECG] [ECG] Stat Y 11/05/16 20:25 Completed Date of admission: 11/04/16 16:48 Primary care physician: Reanna Pagan Consults: 11/04/16 19:44 Consult to Pulmonology [CONS] Routine Consulting Provider: [facility] [place] Reason for Consult: Severe COPD Call Completed: Yes 11/04/16 20:42 Consult to [employer] [CONS] Routine Reason for SW Consult: Will need home BiPAP 11/05/16 08:40 Consult to Palliative Care [CONS] Routine Comment: Consulting Provider: Palliative Care [place] Reason for Consult: discuss end of life care/ goals of care. end stage COPD. Call Completed: Yes - Patient Status Disposition: Transfer Inpatient Rehab Fac Condition: Serious Functional capacity at discharge: bed bound Overall status at discharge: patient is not back to baseline - Discharge Instructions Instructions: Chronic Obstructive Pulmonary Disease (DC) Follow Up With: Reanna Pagan MD [Primary Care Provider] - (PATIENT IS GOING TO [facility] NO PCP APPOINTMENT NEEDED) - Diet and Activity Activity: wear oxygen at all times, other Diet: low fat, low cholesterol Interval History: Patient is very somnolent. Her daughter is at bedside and is stated that she has declined progressively since yesterday afternoon when BiPAP was removed. Hospital course: Ms. 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 She has had multiple admissions to our hospital due to COPD exacerbation. Now she presents with acute shortness of breath and productive cough. Chest x-ray showed flattened diaphragms with increased vascular congestion. She was admitted with diagnosis of acute exacerbation of COPD in the setting of end-stage COPD. She received aggressive nebulizations, IV glucocorticosteroids, had them. The antibiotics with no significant improvement. Patient continued to require BiPAP at all times. Palliative service was involved and family agreed with comfort care. PLAN: hospice at [facility] - Time Spent with Patient Total time spent providing and/or coordinating discharge services: - Constitutional Vitals: Temp Pulse Resp BP Pulse Ox 97.4 F L 113 20 132/60 100 11/08/16 07:37 11/08/16 07:37 11/08/16 11:23 11/08/16 07:37 11/08/16 11:23 Exam: Patient is very somnolent, she only opens her eyes but does not communicate or follow any commands. She wear oxygen supplementation via nasal cannula since yesterday afternoon, no BiPAP since then. - Respiratory Respiratory exam: Present: decreased breath sounds (Very diminished air entry.) - Cardiovascular Cardiovascular exam: Present: RRR - GI/Abdominal GI/Abdominal exam: Present: hypoactive bowel sounds, soft. Absent: distended, tenderness - Extremities Exam Extremities exam: Absent: pedal edema
--- NOTE | 2016-11-08 13:52 | Physician Discharge Referral ---
ExtendedCare Referral Info Transfer To: ECF WITH HOSPICE Provider in Charge: JOSELINE Provider in Charge after Transfer: Supervisor [place] Institutional Level of Care: Skilled - Diagnosis (1) Acute on chronic respiratory failure with hypercapnia Status: Acute (2) COPD exacerbation Status: Acute (3) Anxiety Status: Acute (4) Acute metabolic encephalopathy Status: Acute (5) Goals of care, counseling/discussion Status: Acute - Transfer Medications Prescriptions: LORazepam Oral Conc [Ativan Oral Conc] 1 mg PO Q4H PRN #15 mls PRN Reason: Agitation/restlessness Morphine Oral CONC [Roxanol] 0.25 ml PO Q1H PRN #30 ml PRN Reason: pain or dyspnea Home Medications: Albuterol Neb [Proventil Neb] 2.5 mg IH Q2H PRN #0 inhsol 03/14/16 [Rx] Ipratropium/Albuterol Neb [Duoneb] 3 ml IH [id number] inhsol 07/21/16 [Rx] Dextran 70/Hypromellose [Artificial Tears Eye Drops] 1 drop OP DAILY PRN [History] Bisacodyl [Dulcolax] 10 mg RC DAILY supp.rect 11/08/16 [Rx] LORazepam Oral Conc [Ativan Oral Conc] 1 mg PO Q4H PRN #15 mls 11/08/16 [Rx] Morphine Oral CONC [Roxanol] 0.25 ml PO Q1H PRN #30 ml 11/08/16 [Rx] Allergies/Adverse Reactions: Allergies No Known Allergies Allergy (Verified 02/04/16 19:19) - Respiratory Orders Oxygen / L per min (6 L NC) Smoking Cessation: Smoking cessation has been advised. For more information, call the [place] Tobacco Quit Line at 2-376-AXUL-NOW. - Advance Directives Code Status: DNR-Comfort Care - Mobility Orders Bedrest - Rehabiliation Orders Rehab Potential: Poor - Diet Orders Cardiac CERTIFICATION: I certify that the transfer of the above named patient to an Extended Care Facility is necessary for the continuing treatment of the diagnosis listed. The above information is true and accurate reflection of patient's current condition. Confidential - Redisclosure prohibited without a patient's written consent.
[2016-11-08] MEDS: Morphine Oral CONC 5 MG/0.25 ML ORAL.SYG PO PRN (18:15)
== END 2016-11-08 18:53 | DRG 190 ==
LOC: EMEROO 14:47 → SUATTDRO 16:48 → ICNU 16:48 → 2NNU 11-05 13:40
PROVIDERS: ADMIT Internal Medicine; ATTEND Internal Medicine